=== PATIENT | female | born 1995 | race Caucasian/White ===

== ENCOUNTER 2020-03-23 15:12 | Observation (INO) | payer SELFPAY ==
--- NOTE | ~2020-03-23 | XR_ITS ---
EXAMINATION: XR chest 1V portable 03/23/2020 23:01 INDICATION: Chest pain. EtOH withdrawal. Anxiety. PROCEDURE: AP portable chest COMPARISON: 12/13/2018 FINDINGS: The lungs are clear. The cardiomediastinal silhouette is within normal limits. There are no pleural effusions. There is no pneumothorax suspected. IMPRESSION: 1: NO ACUTE CARDIOPULMONARY DISEASE. Reviewed, dictated and finalized at location A.
[2020-03-23 15:30] VITALS: BP 98/79; PULSE 116; RESP 18; TEMP 37.1; O2SAT 100
[2020-03-23] MEDS: ONDANSETRON HCL ODT 4 MG TABLET PO (17:05)
--- NOTE | 2020-03-23 17:13 | ED.ALCOHOL ---
HPI - Alcohol General Source: patient and other (raven (given permission to stay in room by patient). ) Mode of arrival: ambulatory Limitations: no limitations History of Present Illness HPI narrative: 24 y.o. with alcohol dependence decided to stop drinking. She has decreased her daily alcohol (rum) from a fifth ( 25 ounces) to several shots (2 - 4 ounces) /day. She comes in with the following symptoms for the past 2 days: constant nausea, frequent vomiting and dry heaves resting tremors Intermittent episodes of sweating feeling very anxious having mild feelings of harshness and ability to be frightened photophobia moderate to severe occipital headache Last year when she was in withdrawal she had a seizure which she's concerned will recur. She usually tapers her alcohol to get past her withdrawal symptoms, but came into the E.D. feeling very thirsty and dehydrated, hoping to treat her withdrawal symptoms with i.v. fluids and medication. She last had several shots of rum about 6 hours ago. She smokes marijuana but otherwise denies other substance use. She started abusing alcohol at about 10 years old. She has tried A.A., counseling and assistance from a medical provider, all of which were unsuccessful. Related Data Home Medications Medication Instructions Recorded Confirmed No Home Medications 03/23/20 03/23/20 Allergies Allergy/AdvReac Type Severity Reaction Status Date / Time No Known Allergies Allergy Verified 03/23/20 16:47 Review of Systems Constitutional: Constitutional: Denies fever(s) Eyes: Eyes: Reports no additional eye complaints ENT: Reports sore throat Cardiovascular: Cardiovascular: Reports chest pain (periodic chest pain since withdrawing, sometimes lasting several hours. ) Comments: Whenever she goes through alcohol withdrawal she gets familiar, low grade, twisting discomfort in her left and/ or right lower chest, sometimes associated with similar discomfort in the posterior chest. Sometimes she experiences similar, twisting pain in her lower abdomen. The pain is worse when she's supine, curled up, and improves when sitting up. She only has it when she withdraws. Respiratory: Respiratory: Denies dyspnea Gastrointestinal: Gastrointestinal: Reports no additional gastrointestinal complaints Genitourinary: Comments: urinary urgency Integumentary/Breasts: Skin/Breast: Denies rash Neurologic: Reports numbness (intermittent, recurrent tingling in fingers for a very long time. No change) Psychiatric: Psychiatric: Reports no additional psychiatric complaints Hematologic/Lymphatic: Hematologic/Lymphatic: Reports easy bleeding PMFSH Past Medical History Medical History (Updated 03/24/20 @ 01:56 by Lakhwinder Muro MD) Anxiety Depression PTSD (post-traumatic stress disorder) Social History Social History Smoking packs per day: 0.5 Smoking cigarettes per day: 10.0 Years smoked: 10 Smoking pack-years: 5.00 Smoking status: Current every day smoker Tobacco type: cigarettes Second hand tobacco smoke exposure: Yes Alcohol intake: current Substance use: current Substance use type: marijuana Last use: 03/22/20 Gender identity (if verbalized by the patient): Female Spiritual care concerns: No Exam Const: Orientation/consciousness: patient oriented x3 Other: Rolled up in a ball; resting arm tremors. HENMT: Head: normal to inspection Mouth: Yes dry mucous membranes Eyes: Pupils: Equal, round and reactive pupils present EOM: EOMs intact bilaterally Direct Ophthalmoscopy: photophobia Neck: Neck: no lymphadenopathy Other: supple Chest: Chest palpation & inspection: normal inspection of the chest and no tenderness Resp: Effort & Inspection: normal respiratory effort Auscultation: clear to auscultation bilaterally Cardio: Rate: regular rate and tachycardic Rhythm: regular rhythm Heart sounds: no murmurs GI: GI Palp: Yes Soft to
--- NOTE | 2020-03-23 17:24 | ECG_ITS ---
Measurements Intervals [place] Rate: 89 P: 73 NM: 104 QRS: 55 QRSD: 81 T: 66 QT: 413 QTc: 505 Interpretive Statements SINUS RHYTHM WITH SHORT NM INTERVAL RSR' IN V1 OR V2, PROBABLY NORMAL VARIANT T WAVE ABNORMALITY IN ANTERIOR LEADS- CONSIDER ISCHEMIA BASELINE ARTIFACT- I ABNORMAL ECG Electronically Signed On 03-23-2020 20:02:36 CDT by Durga Naranjo D.O.
[2020-03-23 17:30] VITALS: BP 109/73; PULSE 99; TEMP 36.4
[2020-03-23 17:30] LABS: Hematocrit 41.9 % (35.0-49.0); Hemoglobin 15.1 g/dL (12.0-15.0); Mean Corpuscular Hemoglobin 37.3 pg (27.0-31.0); Mean Corpuscular Volume 103.5 fL (78.0-102.0); Mean Platelet Volume 9.3 fl (9.2-11.8); Platelet Count Result 181 K/mm3 (150-420); Red Blood Count 4.05 M/mm3 (4.20-5.40); Red Cell Distribution Width 12.1 % (11.6-14.4); White Blood Count 5.3 K/mm3 (4.8-10.8)
[2020-03-23 17:48] LABS: Alanine Aminotransferase 130 U/L (14-59); Albumin Level 3.4 g/dL (3.4-5.0); Alkaline Phosphatase 149 U/L (46-116); Anion Gap 22.1 mmol/L (7-16); Aspartate Amino Transferase 221 U/L (15-37); Bilirubin,Total 0.8 mg/dL (0.00-1.00); Blood Urea Nitrogen 3 mg/dL (7-18); Calcium 8.8 mg/dL (8.5-10.1); Carbon Dioxide 22 mmol/L (21-32); Chloride 96 mmol/L (98-108); Estimated CRCL calculation 65 ml/min; Estimated Glomerular Filt Rate > 60; Ethanol 50 mg/dL (0-6); Glucose 115 mg/dL (70-99); Osmolality Calculated 281 mOsm/kg (285-295); Potassium 3.1 mmol/L (3.5-5.1); Sodium 137 mmol/L (136-145); Total Protein 7.8 g/dL (6.4-8.2)
[2020-03-23 17:50] LABS: Troponin I < 0.02 ng/mL (0.00-0.056)
[2020-03-23] MEDS: LACTATED RINGERS 1,000 ML 999 ML IV CONT (17:55)
[2020-03-23] MEDS: ONDANSETRON INJ 4 MG/2 ML VIAL IV PUSH (17:59)
[2020-03-23 19:18] LABS: Amphetamine Screen Urine Negative (Negative); Barbiturate Screen Urine Negative (Negative); Benzodiazepines Screen Urine Negative (Negative); Cannabinoid Screen Urine Positive (Negative); Cocaine Screen Urine Negative (Negative); Methadone Screen Urine Negative (Negative); Opiate Screen Urine Negative (Negative); Phencyclidine Screen Urine Negative (Negative)
--- NOTE | 2020-03-23 20:25 | ECG_ITS ---
Measurements Intervals [place] Rate: 98 P: 48 [place]: 90 QRS: 56 QRSD: 78 T: 70 QT: 361 QTc: 462 Interpretive Statements SINUS RHYTHM WITH SHORT [place] INTERVAL VENTRICULAR PREMATURE COMPLEX RSR' IN V1 OR V2, PROBABLY NORMAL VARIANT BORDERLINE ST-T WAVE ABNORMALITY- DIFFUSE LEADS BASELINE ARTIFACT- I, AVR, AVL, AVF ABNORMAL ECG Electronically Signed On 03-24-2020 7:09:33 CDT by Durga Naranjo D.O.
[2020-03-23] MEDS: MAGNESIUM SULF 4 GM/WATER100ML 4 GM/100 ML BAG IVPB (21:01)
[2020-03-23 21:44] VITALS: BP 110/73; PULSE 78; RESP 18; TEMP 36.4; O2SAT 100
--- NOTE | 2020-03-23 22:51 | PC.NURSE ---
RAFAEL RICKETTS CALLED REPORT TO RAFAEL DALE ON 2ND FLOOR. RN WAS INFORMED OF CURRENT PT. COMPLAINT. PT. VITALS ARE STABLE AT THIS TIME AND SHE JUST RECIEVED DIAZEPAM FOR ANXIETY/WITHDRAWL AND REPORTS FEELING MORE CALM AND LESS SHAKY. WILL CONTINUE TO MONITOR UNTIL SHE IS TRANSPORTED UPSTAIRS.
[2020-03-23 23:01] LABS: Anion Gap 11.4 mmol/L (7-16); Blood Urea Nitrogen 4 mg/dL (7-18); Calcium 8.8 mg/dL (8.5-10.1); Carbon Dioxide 32 mmol/L (21-32); Chloride 95 mmol/L (98-108); Estimated CRCL calculation 71 ml/min; Estimated Glomerular Filt Rate > 60; Glucose 118 mg/dL (70-99); Osmolality Calculated 277 mOsm/kg (285-295); Potassium 3.4 mmol/L (3.5-5.1); Sodium 135 mmol/L (136-145)
[2020-03-23 23:03] LABS: Troponin I < 0.02 ng/mL (0.00-0.056)
[2020-03-23] MEDS: KCL 20MEQ/0.9% SOD CHL 1,000 ML 150 ML IV CONT (23:37)
[2020-03-24] VITALS (11 sets, daily range): BP systolic 112–129; BP diastolic 60–69; PULSE 64–101; RESP 14–20; TEMP 36.3–36.6; O2SAT 97–98
--- NOTE | 2020-03-24 01:17 | PC.NURSE ---
2310 Pt to 206 for services of the hospitalist. Pt is alert and oriented x4 and states she she is trying to stop drinking for which reason she was admitted. Pt has occasional episodes of dry heaves and she doesnt voice any c/o pain. IV fluid infusing as ordered, side rails up x2 and call fair within reach.
--- NOTE | 2020-03-24 01:22 | PC.NURSE ---
0030 Pt asleep and IV fluid continues to infuse as ordered.
--- NOTE | 2020-03-24 01:22 | PC.NURSE ---
Pt asleep and no signs of nausea or discomfort noted. IV fluid continues to infuse as ordered.
--- NOTE | 2020-03-24 02:24 | PC.NURSE ---
Pt resting quietly in bed and doesnt voice any c/o nausea. IV fluid continues to infuse as ordered.
--- NOTE | 2020-03-24 03:32 | PC.NURSE ---
Pt states she is having a hard time sleeping but states it is because this is the first time she has been away from her fiance. Pt doesnt voice any c/o nausea and IV fluid continues to infuse as ordered.
--- NOTE | 2020-03-24 04:20 | PC.NURSE ---
Pt asleep and no signs of nausea or withdrawl noted. IV fluid continues to infuse as ordered.
--- NOTE | 2020-03-24 05:00 | ECG_ITS ---
Measurements Intervals [place] Rate: 62 P: 63 VA: 129 QRS: 17 QRSD: 80 T: -2 QT: 524 QTc: 533 Interpretive Statements SINUS RHYTHM BORDERLINE ST-T WAVE ABNORMALITY- ANT/INF LEADS PROLONGED QT INTERVAL BASELINE ARTIFACT- I, III, AVL, AVF ABNORMAL ECG Electronically Signed On 03-24-2020 7:08:08 CDT by Durga Naranjo D.O.
--- NOTE | 2020-03-24 05:36 | PC.NURSE ---
Contacted Dr. Muro with pt's critical EKG results. No new orders at this time.
--- NOTE | 2020-03-24 06:32 | PC.NURSE ---
Dr uMro contacted regarding IV fluid order. Orders clarified.
[2020-03-24 06:39] LABS: Blood Urea Nitrogen 3 mg/dL (7-18); Calcium 7.9 mg/dL (8.5-10.1); Carbon Dioxide 31 mmol/L (21-32); Estimated CRCL calculation 76 ml/min; Estimated Glomerular Filt Rate > 60; Glucose 76 mg/dL (70-99); Magnesium 2.4 mg/dL (1.8-2.4)
--- NOTE | 2020-03-24 06:41 | PC.NURSE ---
Pt up to the bathroom per self to void. Pt returned to bed and denied c/o nausea. IV fluid discontinued at this time.
--- NOTE | 2020-03-24 07:51 | PC.NURSE ---
Patient reports just being exhausted and only getting sleep here at intervals related to stimulation of hospital. No other complaints voiced.
[2020-03-24 08:17] LABS: Troponin I < 0.02 ng/mL (0.00-0.056)
[2020-03-24 09:22] LABS: Basophils Absolute Auto 0.01 K/mm3 (0.00-0.10); Basophils Percent Auto 0.2 % (0.0-1.0); Eosinophils Absolute Auto 0.06 K/mm3 (0.02-0.50); Hematocrit 38.5 % (35.0-49.0); Hemoglobin 13.2 g/dL (12.0-15.0); Immature Granulocyte Absolute 0.01 K/mm3 (0.00-0.00); Immature Granulocyte Percent A 0.2 % (0.0-0.0); Lymphocytes Absolute Auto 1.71 K/mm3 (1.10-4.50); Mean Corpuscular HGB Conc 34.3 g/dL (32.0-36.0); Mean Corpuscular Hemoglobin 36.7 pg (27.0-31.0); Mean Corpuscular Volume 106.9 fL (78.0-102.0); Monocytes Absolute Auto 0.47 K/mm3 (0.10-0.90); Neutrophils Absolute Auto 3.6 K/mm3 (1.7-7.2); Neutrophils Percent Auto 61.6 % (50.0-70.0); Platelet Count Result 135 K/mm3 (150-420); Red Cell Distribution Width 12.4 % (11.6-14.4); White Blood Count 5.9 K/mm3 (4.8-10.8)
[2020-03-24 09:38] LABS: Anion Gap 10.8 mmol/L (7-16); Chloride 100 mmol/L (98-108); Osmolality Calculated 281 mOsm/kg (285-295); Potassium 3.8 mmol/L (3.5-5.1); Sodium 138 mmol/L (136-145)
--- NOTE | 2020-03-24 10:16 | PC.NURSE ---
1015 Patient sleeping on her side. Left undisturbed at present. NSR on tele.
--- NOTE | 2020-03-24 10:30 | ECG_ITS ---
Measurements Intervals [place] Rate: 62 P: 77 MS: 125 QRS: 50 QRSD: 77 T: 37 QT: 507 QTc: 519 Interpretive Statements SINUS RHYTHM BORDERLINE ST ABNORMALITY- ANT/INF LEADS PROLONGED QT INTERVAL ABNORMAL ECG Electronically Signed On 03-24-2020 11:01:13 CDT by Durga Naranjo D.O.
[2020-03-24 11:05] LABS: Creatine Kinase 49 U/L (26-192)
[2020-03-24 11:08] LABS: Creatine Kinase MB < 0.50 ng/mL (0.00-5.00); Troponin I < 0.02 ng/mL (0.00-0.056)
[2020-03-24] MEDS: chlordiazePOXIDE 25 MG CAPSULE PO (11:22)
--- NOTE | 2020-03-24 11:26 | PC.NURSE ---
Step mom here and conversing with Chloé PIG MACHINE SUPERVISOR and patient. Information given on [facility] to patient.
--- NOTE | 2020-03-24 11:27 | PC.NURSE ---
Mild withdrawl from ETOH noted. Librium ordered per OCT. Medication started. SEE MAR.
--- NOTE | 2020-03-24 13:03 | PC.NURSE ---
Notified [facility] about patient to follow up after discharge. [facility] casemanager will be calling patient cell phone to set up this appointment.
--- NOTE | 2020-03-24 13:50 | PC.NURSE ---
Sleeping. SR on Tele. Step mom left to go get her food. Left undisturbed at present.
--- NOTE | 2020-03-24 14:40 | PC.NURSE ---
1434 Patient too heart monitor off r/t not want to wear it no more. Wants to go home. Ate [place] food for lunch -kept it down. Demanding to go home. Chloé TEJEDA notified.
--- NOTE | 2020-03-24 15:02 | PM.DS ---
DS: Discharge Diagnosis Discharge Diagnosis (1) Alcohol withdrawal: Qualifiers: Complication of substance-induced condition: uncomplicated Qualified Code(s): F10.230 - Alcohol dependence with withdrawal, uncomplicated Code(s): F10.239 - Alcohol dependence with withdrawal, unspecified Status: Acute Assessment and Plan: admitted with alcohol withdrawal. Stated that she has had this experience before. drinking alcohol since she was 10 years old. drinks approximately a full bottle of rum every day. She stated that on Monday she started to wean herself from alcohol. And that on Monday she only had about 4 shots of rum. And ended up in the ER later that day. decreased her daily alcohol (rum) from a fifth ( 25 ounces) to several shots (2 - 4 ounces) /day. admitted with:constant nausea, frequent vomiting and dry heaves, resting tremors, Intermittent episodes of sweating, feeling very anxious, having mild feelings of harshness and ability to be frightened, photophobia, moderate to severe occipital headache. history of alcohol withdrawal seizure last year. electrolytes replenished IV hydration completed Follow-up with [facility] for a primary care provider that she can afford as well as counseling. [facility] case fitter said that they would be following up with the patient. intervals Changes noted to EKGs in her QTC currently denying chest pain, chest pressure, shortness of breath, dyspnea, and is ambulating throughout her hospital room without any lightheadedness, dizziness, or difficulty. added Librium. She received a 25 mg dose, with no concerning changes to her continuous cardiac telemetry monitoring rhythms. alcohol withdrawal symptoms significantly improved with her Librium dosing. discharged today with a short course of Librium, instructed not to drink while taking Librium , spoken with her fiance who lives with her as well as her stepmother, and requested that the patient not be alone for the next 24 hours after discharge , just for further monitoring and assurance of withdrawal symptom control.. And her boyfriend /fiance who lives with her as well as her stepmother have both assured us (myself and nurse Miladys) that the pateint will not be left alone for the next 24 hours. discharge to follow-up with the primary care provider as well as a counselor, instructed her to attend AA meetings weekly, to take alqv-rke-pgtejfa magnesium, tuob-kaf-lgjxxag multivitamin, follow-up with a bridge welder regarding her EKG changes. (2) Hypomagnesemia: Code(s): E83.42 - Hypomagnesemia Status: Acute Assessment and Plan: resolved magnesium was 1.0 admission magnesium was 2.4 today instructed patient to take oral tinl-tlf-tawhwuj magnesium as she is on limited income (3) Abnormal ECG: Code(s): R94.31 - Abnormal electrocardiogram [ECG] [EKG] Status: Acute Assessment and Plan: prolonged QTC intervals on her EKGs found intermittently continuous cardiac telemetry monitoring patient continued to deny any shortness of breath or dyspnea or chest pain or chest pressure or shoulder or jaw or arm numbness or tingling may be related to medications and her alcohol withdrawal and or alcohol use, may be related to liver disease Most recent EKG, prior to discharge. QT: 507 QTc: 519 I have instructed her to attend AA meetings weekly, to take wurw-eiz-smczyfs magnesium, mnqm-lwx-cgisvrr multivitamin, and that she should follow-up with a bridge welder regarding her EKG changes. (4) Anxiety: Code(s): F41.9 - Anxiety disorder, unspecified Status: Acute Assessment and Plan: patient is anxious at baseline patient stated that she treats her anxiety with alcohol and admitted that she needs to stop self medicating undergoing alcohol withdrawal only makes her anxiety worse treated with Valium at her
--- NOTE | 2020-03-24 15:02 | PM.IMHP ---
H&P: HPI History of Present Illness Chief complaint: alcohol withdrawal Narrative: Dominga Melendez is a 24 year old female admitted with alcohol withdrawal. Stated that she has had this experience before. As time she tried to wean herself from alcohol. Dominga stated that she has been drinking alcohol since she was 10 years old. She does not communicate with her mother. She lives with her boyfriend who is not an alcoholic but he may drink on a rare occasion. She does communicate and is friendly with her stepmother. Her stepmother stated that Dominga's boyfriend, while he does not drink, will bring and provides here with alcohol. Dominga stated that she drinks approximately a full bottle of rum every day. She stated that on Monday she started to wean herself from alcohol. And that on Monday she only had about 4 shots of rum. And ended up in the ER later that day.She has decreased her daily alcohol (rum) from a fifth ( 25 ounces) to several shots (2 - 4 ounces) /day. She comes in with the following symptoms for the past 2 days:constant nausea, frequent vomiting and dry heaves, resting tremors, Intermittent episodes of sweating, feeling very anxious, having mild feelings of harshness and ability to be frightened, photophobia, moderate to severe occipital headache. Last year when she was in withdrawal she had a seizure which she's concerned will recur. She usually tapers her alcohol to get past her withdrawal symptoms, but came into the E.D. feeling very thirsty and dehydrated, hoping to treat her withdrawal symptoms with i.v. fluids and medication. She last had several shots of rum about 6 hours ago. She smokes marijuana but otherwise denies other substance use. She has tried A.A., counseling and assistance from a medical provider, all of which were unsuccessful. Dominga has not had a primary care provider anyone to follow-up with. She does not have any insurance and she has not had the money to pay for any physician or Dr. appointments. We have called [facility] and they will be following up with this patient. We have also provided Dominga with all of the [facility] information and contact numbers. [facility] case management specialist said that they would be following up with the patient. They are able to provide primary care appointments in the clinic, able to provide alcohol withdrawal treatment including medications and prescriptions as well as counselors. At 5 am, this morning, her EKG showed: QT: 524 QTc: 533 Today, She is currently denying chest pain, chest pressure, shortness of breath, dyspnea, and is ambulating throughout her hospital room without any lightheadedness, dizziness, or difficulty. Today she is not having any chest pain, and her heart rate is well controlled, and her blood pressures are stable. Her most prominent sign of alcohol withdrawal this morning was tremors, agitation, fidgeting, anxiety. These did improve after her Librium dose. At admission she had evidence of acute dehydration with a hemoglobin of 15.1, a low potassium of 3.1 and magnesium of 1.0. All of her liver enzymes are elevated at admission.:Her AST is elevated at 221 and her ALT is 130, her alkaline phosphatase was 149. Her urine tox screen was negative except for cannabinoids and alcohol. Her alcohol level was 50 at admission. Chest x-ray was without any concerns.Most recent EKG, prior to discharge. QT: 507 QTc: 519 Dominga was hydrated overnight, replenished with IV magnesium and potassium, and her electrolytes are now stable. she received a dose of Valium , Zofran, promethazine, last night and then was noted to have QTC prolongation on her EKGs. I have ordered the patient to start on Librium. She received a 25 mg dose, with no concerning changes to her continuous cardiac telemetry monitoring rhythms. Her alcohol withdrawal symptoms signific
--- NOTE | 2020-03-25 00:38 | PM.EVENT ---
Event Note Event Note Event Note: For 03/24/2020: I reviewed the chart and examined the patient. I discussed the patient's care with A Sundeep HUSTON and agree with her assessment and plan.
== END 2020-03-24 15:10 | disposition home or self-care (01) ==
LOC: CHSED 20:44 → CHS2ND 23:10
PROVIDERS: Nurse Practitioner; Admitting Provider Family Medicine; Emergency Provider Family Medicine; Visit Provider Family Medicine
DX: F10.239 Alcohol dependence with withdrawal, unspecified (principal); E86.0 Dehydration; E83.42 Hypomagnesemia; R94.31 Abnormal electrocardiogram [ECG] [EKG]; F41.9 Anxiety disorder, unspecified; F32.9 Major depressive disorder, single episode, unspecified; F43.10 Post-traumatic stress disorder, unspecified; F17.210 Nicotine dependence, cigarettes, uncomplicated; F12.90 Cannabis use, unspecified, uncomplicated
CPT/HCPCS: 36415; 71045; 80048; 80053; 80307; 82550; 82553; 83735; 84484; 85025; 85027; 87086; 93005; 96361; 96365; 96366; 96367; 96372; 96375; 99284; 99285; A9270; G0378; G0379; J2405; J3360; J3475; J3480; J7120

== ENCOUNTER 2022-02-20 15:46 | Emergency (ER) | payer SELFPAY ==
--- NOTE | 2022-02-20 15:50 | ED.WOUNDLAC ---
HPI - Wound/Laceration General Chief Complaint: Wound/Laceration Stated Complaint: cut down to bone, R pinky Time Seen by Provider: 02/20/22 15:52 Source: patient and RN notes reviewed Mode of arrival: ambulatory Limitations: no limitations History of Present Illness Onset (ago): minute(s) (15) Extremity Location: Right: hand ( dorsal DIP) Place: home Patient tetanus UTD: Yes Context: accidental Associated symptoms: none Treatments prior to arrival: bandage Related Data Allergies Allergy/AdvReac Type Severity Reaction Status Date / Time No Known Allergies Allergy Verified 02/20/22 16:19 Review of Systems Review of Systems: All systems reviewed & are unremarkable except as noted in HPI and below PMFSH Past Medical History Medical History (Updated 02/20/22 @ 16:34 by Ministerio Crow MD) Anxiety Depression PTSD (post-traumatic stress disorder) Family History Family History Mother Lupus (systemic lupus erythematosus) Grandparent Diabetes mellitus Social History Social History Smoking packs per day: 0.5 Smoking cigarettes per day: 10.0 Years smoked: 10 Smoking pack-years: 5.00 Smoking status: Current every day smoker Tobacco type: cigarettes Second hand tobacco smoke exposure: Yes Alcohol intake: current Substance use: current Substance use type: marijuana Last use: 03/22/20 Gender identity (if verbalized by the patient): Female Spiritual care concerns: No Exam Const: General: healthy appearing, no acute distress and alert Nutritional Appearance: well nourished Orientation/consciousness: patient oriented x3 HENMT: Head: normal to inspection Ears: external ears normal Eyes: Conjunctivae: conjunctivae normal Pupils: Equal, round and reactive pupils present EOM: EOMs intact bilaterally Neck: Neck: normal visual inspection Resp: Effort & Inspection: normal respiratory effort Auscultation: clear to auscultation bilaterally Cardio: Rate: regular rate Rhythm: regular rhythm GI: GI Palp: Yes Soft to palpation and No Tenderness to palpation present (GI) Auscultation: normal bowel sounds Back/Spine/Pelvis: Cervical Spine: cervical ROM normal Thoracic/Lumbar Spine: thoraco-lumbar ROM normal Skin: General skin exam: normal color Rashes: no rashes Wounds: wounds noted ( through the extensor tended into the DIP joint) incision right dorsal 5th finger size (2cm) and margins well approximated Neuro: General: patient oriented x3, moves all extremities, no focal motor deficits and CN's II-XI intact bilaterally Speech: normal speech Gait exam (Neuro): Normal gait present Extrem: General: normal to inspection and no clubbing, cyanosis or edema Psych: Mental Status: mental status grossly normal Affect: normal affect Attitude: cooperative Course Course Emergency Course: I offered the patient transfer evaluation to [place] for hand surgeon or plastic surgeon since her laceration is through the extensor tendon and into the D IP joint. She declined. Procedures Laceration Laceration 1: Date: 02/20/22 Site: upper extremity ( Dorsal D IP joint horizontally) Side (If applicable): right Size (cm): 2 Description: linear Depth: involves tendon Local Anesthetic: lidocaine 1% Pre-repair: wound explored and irrigated ====== Skin Level ====== Skin layer closed with: nylon Size (cm): 4-0 Number of sutures: 5 Technique: running ====== Subcutaneous Layer ====== ====== Muscle Layer ====== ====== Tendon Layer ====== Tendon layer closed with: vicryl Size: 4-0 Number of sutures: 2 Technique: simple interrupted Discharge Plan Discharge Clinical Impression: Laceration Patient Disposition: Home, Self-Care Condition: Improved Instructions: Antib
[2022-02-20 15:56] VITALS: BP 126/86; PULSE 96; RESP 16; TEMP 36.6; O2SAT 98
[2022-02-20] MEDS: LIDOCAINE HCL 1% LOCAL INJ 10 ML VIAL INFILTRATE (16:09)
--- NOTE | 2022-02-20 16:10 | PC.NURSE ---
erp at bedside cleaning wound, patient offered to be transferred to [facility] for plastic surgeon but declined. stated she just wanted it sutured up so she could go back home.
[2022-02-20] MEDS: NEOMYCIN/POLYMYXIN/BACITRACIN OINTMENT PACKET 1 PACKET TOPICAL (16:15)
[2022-02-20 16:41] VITALS: BP 127/88; PULSE 97; RESP 16; TEMP 36.8; O2SAT 98
== END 2022-02-20 16:49 | disposition home or self-care (01) ==
PROVIDERS: Emergency Provider Emergency Medicine
DX: S61.216A Laceration without foreign body of right little finger without damage to nail, initial encounter (principal); W45.8XXA Other foreign body or object entering through skin, initial encounter
CPT/HCPCS: 12001; 99283

== ENCOUNTER 2022-03-19 17:58 | Emergency (ER) | payer MEDICAID, SELFPAY ==
[2022-03-19 18:35] VITALS: BP 120/81; PULSE 131; RESP 20; TEMP 37; O2SAT 98
[2022-03-19] MEDS: ACETAMINOPHEN 325 MG TABLET 650 MG PO (18:55)
[2022-03-19] MEDS: IBUPROFEN 600 MG TABLET PO (18:56)
[2022-03-19] MEDS: NEOMYCIN/POLYMYXIN/BACITRACIN OINTMENT PACKET 2 PACKET (18:57)
--- NOTE | 2022-03-19 18:59 | ED.GENADULT ---
HPI - General Adult General Chief complaint: Wound/Laceration Stated complaint: R pinky infected History of Present Illness HPI narrative: The patient is a 26-year-old woman who sustained a laceration to the right little finger DIP joint on 02/20/2022, which involved a laceration of the extensor tendon. The laceration did extend into the joint. This was repaired here in the emergency room on that day. She was placed on Augmentin but could not afford the prescription. She was advised to follow-up with a hand specialist but has not been able to. She has had redness for the last several days, but worsening over the last 2 days, now with purulent drainage from the laceration. The sutures have been removed in the interim. There is swelling tenderness and purulent drainage from the site. She has loss of sensation at the lateral aspect of the finger tip which is present since the event. She is currently not on antibiotics and has not taken any antibiotics for this. She does have a finger splint. Her tetanus is up-to-date. No other complaints. Related Data Allergies Allergy/AdvReac Type Severity Reaction Status Date / Time No Known Allergies Allergy Verified 02/20/22 16:19 Review of Systems Review of Systems: All systems reviewed & are unremarkable except as noted in HPI and below Constitutional: Constitutional: Reports no additional constitutional complaints, Denies anorexia, Denies body ache(s), Denies chills, Denies excessive sweating, Denies fatigue, Denies fever(s), Denies frequent falls, Denies headache(s), Denies malaise and Denies poor appetite Eyes: Eyes: Reports no additional eye complaints, Denies blurry vision, Denies change in vision, Denies irritation, Denies itchy eyes and Denies photophobia ENT: Reports system reviewed and no additional complaints, except as documented, Reports Normal hearing present, Denies change in voice, Denies dysphagia, Denies vertigo, Denies dizziness, Denies ear discharge, Denies headache(s), Denies hearing loss, Denies hoarseness, Denies nasal congestion, Denies neck pain, Denies sinus pressure, Denies sore throat and Denies throat swelling Cardiovascular: Cardiovascular: Reports no additional cardiovascular complaints, Denies chest pain, Denies syncope, Denies rapid heart rate, Denies irregular heart rhythm, Denies leg edema, Denies dyspnea and Denies slow heart rate Respiratory: Respiratory: Reports no additional respiratory complaints, Denies cough, Denies dyspnea, Denies stridor and Denies wheezing Gastrointestinal: Gastrointestinal: Reports no additional gastrointestinal complaints, Denies abdominal pain, Denies melena, Denies hematochezia, Denies dysphagia, Denies diarrhea, Denies nausea and Denies vomiting Genitourinary: Genitourinary: Denies hematuria, Denies urinary frequency, Denies dysuria, Denies flank pain and Denies urinary urgency Musculoskeletal: Musculoskeletal: Reports no additional musculoskeletal complaints, Denies abnormal gait, Denies back pain, Denies myalgias, Reports arthralgias (of right little finger distal phalanx), Reports joint swelling (of right little finger distal phalanx), Reports limited range of motion (of right little finger DIP joint), Denies muscle cramps, Denies muscle weakness, Denies neck pain and Denies numbness Integumentary/Breasts: Skin/Breast: Reports system reviewed and no additional complaints, except as docu, Denies breast pain, Reports change in pigmentation, Denies pruritus, Reports erythema and Reports wounds Neurologic: Reports system reviewed and no additional complaints, except as documented, Reports Normal hearing present, Denies Abnormal speech present, Denies abnormal gait, Denies confusion, Denies vertigo, Denies dizziness, Denies syncope, Denies frequent falls, Denies headache(s), Denies focal weakness, Reports numbness and Denies paresthesias Psychiatric: Psychiatric: Reports no additional psychiatric complaints and Denies confusion Endocrine:
[2022-03-19] MEDS: ceFAZolin SODIUM 1 GM VIAL 2 GM IM (19:19)
[2022-03-19] MEDS: WATER, STERILE FOR INJECTION 10 ML VIAL XX (19:22)
[2022-03-19 19:23] VITALS: PULSE 106; RESP 20; O2SAT 97
[2022-03-19 20:01] VITALS: BP 106/78; PULSE 107; RESP 18; TEMP 36.6; O2SAT 98
== END 2022-03-19 20:19 | disposition home or self-care (01) ==
PROVIDERS: Emergency Provider Emergency Medicine
DX: L03.011 Cellulitis of right finger (principal)
CPT/HCPCS: 87070; 87147; 87186; 87205; 96372; 99283; A9270; J0690

== ENCOUNTER 2022-04-11 13:50 | Outpatient (CLI) | payer MEDICAID, SELFPAY | END 2022-04-11 13:51 | disposition home or self-care (01) | LOC: CHSLAB 13:52 | PROVIDERS: PCP Nurse Practitioner Family; Visit Provider Nurse Practitioner Family | DX: N91.2 Amenorrhea, unspecified (principal) | CPT/HCPCS: 36415; 84702 ==

== ENCOUNTER 2022-04-29 09:53 | Outpatient (CLI) | payer OTHER, SELFPAY ==
--- NOTE | ~2022-04-29 | US_ITS ---
EXAMINATION: US OB <= 14 weeks fetus DATE: 04/29/2022 10:42 INDICATION: with inconclusive viability during first trimester TECHNIQUE: Real-time pelvic ultrasound utilizing both a transvaginal and transabdominal probe was pe rformed. The interpreting radiologist was not present for the study. COMPARISON: None. FINDINGS: The uterus measures 11.3 x 9.8 x 6.5 cm. There is an intrauterine gestational sac with single living fetus. The crown rump length measures 6.4 cm, which correlates with an estimated gestational age of 13 weeks and 1 days. heart motion is identified measuring 176 beats per minute (bpm) by M-mode Doppler. The placenta is developing posteriorly. The cervix is not clearly visualized. The right ovary measures 3.5 x 2.0 x 3.5 cm. The left ovary is not visualized. There is no free fluid in the pelvis. IMPRESSION: 1. Single living fetus with heart of 176 bpm. 2. Gestational age by ultrasound of 13 weeks 1 day(s) +/- 1 week and 1 day(s) with ultrasound estima chava date of delivery ([facility]) of 11/03/2022. Reviewed, dictated and finalized at location A. IMPRESSION: 1. Single living fetus with heart of 176 bpm. 2. Gestational age by ultrasound of 13 weeks 1 day(s) +/- 1 week and 1 day(s) with ultrasound estimated date of delivery ([facility]) of 11/03/2022.
== END 2022-04-29 09:54 | disposition home or self-care (01) ==
LOC: CHSIMG 09:54
PROVIDERS: PCP Nurse Practitioner Family; Visit Provider Student in an Organized Health Care Education/Training Program
DX: O36.80X0 Pregnancy with inconclusive fetal viability, not applicable or unspecified (principal)
CPT/HCPCS: 76801

== ENCOUNTER 2022-06-15 14:43 | Outpatient (CLI) | payer OTHER, SELFPAY ==
--- NOTE | ~2022-06-15 | US_ITS ---
EXAMINATION: US OB /maternal detail DATE: 06/15/2022 16:11 INDICATION: Second trimester anatomic survey TECHNIQUE: Real-time ultrasound of the pelvis was performed. COMPARISON: 04/29/2022 FINDINGS: There is a single living fetus in vertex presentation. The placenta is posterior and 4.4 cm from the internal cervical os. The cervical length is 5.1 cm. heart rate is 161 beats per minute (bpm). cardiac activity and movement are noted. The amniotic fluid index is subjectively normal . The following anatomy was identified as normal: 4 chamber heart 3 vessel cord cord insertion kidneys urinary bladder stomach spine diaphragm ventricles cisterna magna cerebellum The following biometric data were obtained: Biparietal diameter (BPD): 4.2 cm; head circumference (HC): 16.0 cm; abdominal circumference (AC): 3. 9 cm; femur length (FL): 2.9 cm. These measurements are concordant. Estimated weight is 271 g +/- 40 g, which correlates with the 19th percentile when 11/05/2022 is used as estimated date of delivery. As single measurements, these parameters are each equal to the following estimated gestational ages w ith ranges of +/- 2 standard deviations: BPD: 18 weeks 5 days +/- 1 weeks 5 days. HC: 18 weeks 6 days +/- 1 weeks 3 days. AC: 19 weeks 2 days +/- 2 weeks 0 days. FL: 18 weeks 6 days +/- 1 weeks 6 days. estimated gestational age based solely on measurements from this exam is 19 weeks 0 days +/- 1 weeks 2 days. IMPRESSION: 1. Single living fetus in vertex presentation. 2. Estimated weight is 271 g +/- 40 g, which correlates with the 19th percentile when 11/05/2022 is used as estimated date of delivery. Reviewed, dictated and finalized at location B. IMPRESSION: 1. Single living fetus in vertex presentation. 2. Estimated weight is 271 g +/- 40 g, which correlates with the 19th per centile when 11/05/2022 is used as estimated date of delivery.
== END 2022-06-15 14:44 | disposition home or self-care (01) ==
LOC: CHSIMG 14:44
PROVIDERS: PCP Nurse Practitioner Family; Visit Provider Obstetrics & Gynecology
DX: Z34.82 Encounter for supervision of other normal pregnancy, second trimester (principal)
CPT/HCPCS: 76805

== ENCOUNTER 2024-12-11 08:38 | Outpatient (CLI) | payer OTHER, SELFPAY ==
--- NOTE | ~2024-12-11 | US_ITS ---
EXAM EXAMINATION: US OB follow up DATE: 12/11/2024 13:41 CDT INDICATION: Growth/placental check COMPARISON: 09/27/2024 and 08/27/2024 TECHNIQUE: Real-time transabdominal obstetric ultrasound. FINDINGS: 6 para 2 There is a single intrauterine gestation in vertex presentation. The placenta is anterior. The tip of the placenta measures 3.05 cm from the cervix. The cervix measures 2.41 cm in length cardiac activity and movement is noted with a heart rate of 161 beats per minute. The following biometric data were obtained: Biparietal diameter (BPD): 4.02 cm; head circumference (HC): 15.3 cm; abdominal circumference (AC): 13.4 cm; femur length (FL): 2.7 cm. These measurements are concordant. Estimated weight is 241.5g +/- 36 g, which correlates with the 57th percentile when 05/11/2025 i s used as estimated date of delivery. As single measurements, these parameters are each equal to the following estimated gestational ages: BPD: 18 weeks 1 day. HC: 18 weeks 2 days. AC: 18 weeks 6 days. FL: 18 weeks 1 day. estimated gestational age based solely on measurements from this exam is 18 weeks 3 days +/- 1 week 2 days. IMPRESSION: Single intrauterine gestation in vertex presentation with cardiac activity identified. Estimated weight is within the 57th percentile when utilizing 05/11/2025 as the estimated date o f delivery. Anterior placenta tip is 3.05 cm from the cervix, as detailed above Reviewed, dictated and finalized at location A. IMPRESSION: Single intrauterine gestation in vertex presentation with cardiac activit y identified. Estimated weight is within the 57th percentile when utilizing 05/11/2025 a s the estimated date of delivery. Anterior placenta tip is 3.05 cm from the cervix, as detailed above
--- OUTSIDE RECORDS SUMMARY | 2024-12-11 09:00 | XMS_ITS | Data Portability ---
Author Organization [facility] Karli [facility] Address [address] [place] [address] Care Team Providers Care Senior Brand Manager Name Role Phone ALYSSA DOUGLAS Food And Beverage Manager Assessment No assessment recorded. Plan of Treatment Reminders Order Date Submit Date Provider Last Modified By Organization Details Last Modified Time Details Appointments OB 15 2024 10:15A M Alyssa Douglas MD Not available Not available Not available Lab urinal ysis, dipsti ck 2024 025 [email or web address] In-Office Order, Internal Use Only DO Not Attach Compendium DO Not Attach Compendium, Do Not Delete/merge, [id number] 11/11/2024 12:07:10 aneupl oidy risk and X & Y analys is, chromo some specif ic circul ating cell free (CCF) DNA, matern al serum 2024 025 ALTON [facility], [address], [place], [address], 11/15/2024 07:16:07 pregna ncy test, urine 2024 025 [email or web address] In-Office Order, Internal Use Only DO Not Attach Compendium DO Not Attach Compendium, Do Not Delete/merge, [id number] 10/10/2024 13:45:00 urinal ysis, dipsti ck 2024 025 [email or web address] In-Office Order, Internal Use Only DO Not Attach Compendium DO Not Attach Compendium, Do Not Delete/merge, [id number] 10/10/2024 13:45:00 hemogl obin (Hb) electr ophore sis, blood 2024 025 YU [facility], [address] [facility], [facility] [address], [place], [address], 10/23/2024 07:17:47 HIV 1 + 2, meanin gful use set 2024 025 [email or web address] [facility], [address] [facility], [facility], [place], [address], 10/24/2024 08:36:06 varice lla zoster virus IgG Ab, QL, IA, serum 2024 025 [facility], [address] [facility], [facility], [place], [address], 10/23/2024 07:17:57 urinal ysis comple te, reflex cultur e 2024 025 Y[facility], [address] [facility], [facility], [place], [address], 10/23/2024 07:17:51 drug screen , urine 2024 025 Y[facility], [address] [facility], [facility], [place], [address], 10/23/2024 07:17:55 CFTR gene mutati ons found, blood or tissue 2024 025 [email or web address] [facility], [address] [facility], [facility], [place], [address], 10/24/2024 08:36:06 Hepati tis C IgG Ab, qual, serum 2024 025 [email or web address] [facility], [address] [facility], [address], [place], [address], 10/24/2024 08:36:06 prenat al panel 2024 025 [facility], [address] [facility], [address], [place], [address], 10/23/2024 07:17:49 spinal muscul ar atroph y (sma) mutati ons, blood/ tissue 2024 025 ALTON [facility], [address] [facility], [facility], [place], [address], 10/23/2024 07:17:53 chlamy china tracho matis + neisse hardy gonorr hoeae + tricho monas vagina lis rRNA panel, MARTY+pr obe 2024 025 [facility], [address], [place], [address], 10/12/2024 07:13:40 vagina l pathog ens panel, MARTY+pr obe, vagina l fluid 2023 024 [facility], [address], [place], [address], 01/29/2024 11:11:58 mycopl asma genita lium DNA, qualit ative, PCR 2023 024 [facility], [address], [place], [address], 01/29/2024 11:11:59 cytolo gy report , thin prep, smear or scrapi ng, cervic al or vagina l 2023 024 [facility], [address], [place], [address], 01/30/2024 16:12:14 urinal ysis, dipsti ck 2022 023 [email or web address] In-Office Order, Internal Use Only DO Not Attach Compendium DO Not Attach Compendium, Do Not Delete/merge, [id number] 11/01/2022 15:12:38 Referral None record ed. Procedures None record ed. Surgeries None record ed. Imaging US, obstet abby, 2nd trimes ter 02/13/ 2025 02/13/2 025 ALTON Prudencio [facility] Scheduling, [address] [facility] , [place], [address], 11/20/2024 13:38:18 Medication Orders drospi renone 3 mg-eth inyl estrad iol 0.02 mg tablet 2023 025 [facility] [address], [place], [address], 10/10/2024 12:09:59 Patient TargetsNo targets recorded. Patient Instructions Encounter Date Encounter Id Patient Instructions Last Modified By Organization Details Last Modified Time 11/01/2022 [id number] Quitting Tobacco : Care Instructions [email or web address] Not available 11/01/2022 15:12:38 epilepsy: care instructions Not available 11/01/2022 15:12:38 anxiety disorder : care instructions Not available 11/01/2022 15:12:38 learning about anxiety disorders Not available 11/01/2022 15:12:38 11/30/2022 [id number] edinburgh depression scale* Not available 12/05/2022 22:29:59 01/25/2024 [id number] learning about healthy weight Not available 02/03/2024 22:13:51 10/10/2024 [id number] edinburgh depression scale* Not available 10/10/2024 13:48:22 learning about Not available 10/10/2024 13:45:00 learning about visits Not available 10/10/2024 13:45:00 learning about when to call your doctor during (up to 20 weeks) Not available 10/10/2024 13:45:00 After Age 35: Care Instructions Not available 10/10/2024 13:45:00 weeks 10 to 14 o f your : care instructions Not available 10/10/2024 13:45:00 weeks 6 to 10 of your : care instructions [email or web address] Not available 10/10/2024 13:45:00 Reason for Referral None Reported. Results Created Date Observation Date Name Description Value Unit Range Abnormal Flag Note LastModifiedBy Organization Detail LastModifiedTime 10/11/1910/12/2022 CT, NG, TRICH VAG BY MARTY chlamydia by MARTY Negati ve negati ve Not Available [facility] ([facility]) [address], [place], [address], 10/13/2022 16:13:47 10/11/19 23 10/12/2022 CT, NG, TRICH VAG BY MARTY gonococcus by MARTY Negati ve negati ve Not Available [facility] ([facility]) [address] [place], [address], 10/13/2022 16:13:47 10/11/19 23 10/12/2022 CT, NG, TRICH VAG BY MARTY trich vag by MARTY Negati ve negati ve Not Available [facility] ([facility]) [address] [place], [address], 10/13/2022 16:13:47 10/11/19 23 10/13/2022 STREP GP B MARTY strep gp B MARTY Positi ve negati ve abnormal Cente rs for Disea se Contr ol and Preve ntion (CDC) and Ameri can Congr ess of Obste trici ans and Gynec ologi sts (ACOG ) guide lines for preve ntion of perin atal group B strep tococ nabor (GBS) disea se speci fy co-co llect ion of a vagin al and recta l swab speci men to maxim ize sensi tivit y of GBS detec tion. Per the CDC and ACOG, swabb ing both the lower vagin a and rectu m subst antia lly incre ases the yield of detec tion gucci red with sampl ing the vagin a alone . Penic illin G, ampic illin , or cefaz rosalba are indic ated for intra partu m proph ylaxi s of perin atal GBS colon izati on. Refle x susce ptibi lity testi ng shoul d be perfo rmed prior to use of clind amyci n only on GBS isola kush from penic illin -kurtis rgic women who are consi dered a high risk for anaph ylaxi s. Treat ment with vanco mycin witho ut addit ional testi ng is warra nted if resis tance to clind amyci n is noted . Not Available [facility] ([facility]) [address], [place], [address], 10/13/2022 16:13:48 10/11/19 23 10/12/2022 RPR, RFX QN RPR/C ONFIR M TP RPR Non Reacti ve nonrea ctive Not Available [facility] ([facility]) [address], [place], [address], 10/13/2022 16:13:48 10/11/19 23 10/12/2022 HIV AB/P2 4 AG WITH REFLE X HIV Ab/P24 Ag screen Non Reacti ve nonrea ctive HIV Negat nery HIV-1 /HIV- 2 antib odies and HIV-1 p24 antig en were NOT detec chava. There is no labor atory evide nce of HIV infec tion. Not Available [facility] ([facility]) [address], [place], [address], 10/13/2022 16:13:49 10/11/19 23 10/11/2022 urina lysis , dipst ick Leukocytes Negati ve Not Available In-Office Order Internal Use Only DO Not Attach Compendium DO Not Attach Compendium, Do Not Delete/merge, [id number] 10/11/2022 15:49:05 10/11/19 23 10/11/2022 urina lysis , dipst ick Nitrite negati ve Not Available In-Office Order Internal Use Only DO Not Attach Compendium DO Not Attach Compendium, Do Not Delete/merge, [id number] 10/11/2022 15:49:05 10/11/19 23 10/11/2022 urina lysis , dipst ick Urobilinogen .2 Not Available In-Of fice Order Internal Use Only DO Not Attach Compendium DO Not Attach Compendium, Do Not Delete/merge, [id number] 10/11/2022 15:49:05 10/11/19 23 10/11/2022 urina lysis , dipst ick Protein 30 Not Available In-Office Order Internal Use Only DO Not Attach Compendium DO Not Attach Compendium, Do Not Delete/merge, [id number] 10/11/2022 15:49:05 10/11/19 23 10/11/2022 urina lysis , dipst ick pH 7.0 Not Available In-Office Order Internal Use Only DO Not Attach Compendium DO Not Attach Compendium, Do Not Delete/merge, 10/11/2022 15:49:05 10/11/19 23 10/11/2022 urina lysis , dipst ick Blood Negati ve Not Available In-Office Order Internal Use Only DO Not Attach Compendium DO Not Attach Compendium, Do Not Delete/merge, 10/11/2022 15:49:05 10/11/19 23 10/11/2022 urina lysis , dipst ick Specific [place] 1.025 Not Available In-Off ice Order Internal Use Only DO Not Attach Compendium DO Not Attach Compendium, Do Not Delete/merge, 10/11/2022 15:49:05 10/11/19 23 10/11/2022 urina lysis , dipst ick Ketone Negati ve Not Available In-Office Order Internal Use Only DO Not Attach Compendium DO Not Attach Compendium, Do Not Delete/merge, 10/11/2022 15:49:05 10/11/19 23 10/11/2022 urina lysis , dipst ick Bilirubin Negati ve Not Available In-Office Order Internal Use Only DO Not Attach Compendium DO Not Attach Compendium, Do Not Delete/merge, 10/11/2022 15:49:05 10/11/19 23 10/11/2022 urina lysis , dipst ick Glucose 500 Not Available In-Office Order Internal Use Only DO Not Attach Compendium DO Not Attach Compendium, Do Not Delete/merge, 10/11/2022 15:49:05 10/11/19 23 10/11/2022 urina lysis , dipst ick Appearance Slight ly Cloudy Not Available In-Office Order Internal Use Only DO Not Attach Compendium DO Not Attach Compendium, Do Not Delete/merge, 10/11/2022 15:49:05 10/11/19 23 10/11/2022 urina lysis , dipst ick Color Yellow Not Available In-Office Order Internal Use Only DO Not Attach Compendium DO Not Attach Compendium, Do Not Delete/merge, 10/11/2022 15:49:05 10/19/19 23 10/19/2022 urina lysis , dipst ick Leukocytes Negati ve Not Available In-Office Order Internal Use Only DO Not Attach Compendium DO Not Attach Compendium, Do Not Delete/merge, 10/19/2022 16:20:38 10/19/19 23 10/19/2022 urina lysis , dipst ick Nitrite negati ve Not Available In-Office Order Internal Use Only DO Not Attach Compendium DO Not Attach Compendium, Do Not Delete/merge, 10/19/2022 16:20:38 10/19/19 23 10/19/2022 urina lysis , dipst ick Urobilinogen .2 Not Available In-Of fice Order Internal Use Only DO Not Attach Compendium DO Not Attach Compendium, Do Not Delete/merge, 10/19/2022 16:20:38 10/19/19 23 10/19/2022 urina lysis , dipst ick Protein Negati ve Not Available In-Office Order Internal Use Only DO Not Attach Compendium DO Not Attach Compendium, Do Not Delete/merge, 10/19/2022 16:20:38 10/19/19 23 10/19/2022 urina lysis , dipst ick pH 7.0 Not Available In-Office Order Internal Use Only DO Not Attach Compendium DO Not Attach Compendium, Do Not Delete/merge, 10/19/2022 16:20:38 10/19/19 23 10/19/2022 urina lysis , dipst ick Blood Negati ve Not Available In-Office Order Internal Use Only DO Not Attach Compendium DO Not Attach Compendium, Do Not Delete/merge, 10/19/2022 16:20:38 10/19/19 23 10/19/2022 urina lysis , dipst ick Specific [place] 1.020 Not Available In-Off ice Order Internal Use Only DO Not Attach Compendium DO Not Attach Compendium, Do Not Delete/merge, 10/19/2022 16:20:38 10/19/19 23 10/19/2022 urina lysis , dipst ick Ketone Negati ve Not Available In-Office Order Internal Use Only DO Not Attach Compendium DO Not Attach Compendium, Do Not Delete/merge, 10/19/2022 16:20:38 10/19/19 23 10/19/2022 urina lysis , dipst ick Bilirubin Negati ve Not Available In-Office Order Internal Use Only DO Not Attach Compendium DO Not Attach Compendium, Do Not Delete/merge, 10/19/2022 16:20:38 10/19/19 23 10/19/2022 urina lysis , dipst ick Glucose Negati ve Not Available In-Office Order Internal Use Only DO Not Attach Compendium DO Not Attach Compendium, Do Not Delete/merge, 10/19/2022 16:20:38 10/19/19 23 10/19/2022 urina lysis , dipst ick Appearance Clear Not Available In-Offi ce Order Internal Use Only DO Not Attach Compendium DO Not Attach Compendium, Do Not Delete/merge, 10/19/2022 16:20:38 10/19/19 23 10/19/2022 urina lysis , dipst ick Color Yellow Not Available In-Office Order Internal Use Only DO Not Attach Compendium DO Not Attach Compendium, Do Not Delete/merge, 10/19/2022 16:20:38 10/27/19 23 10/26/2022 urina lysis , dipst ick Leukocytes Trace Not Available In-Offi ce Order Internal Use Only DO Not Attach Compendium DO Not Attach Compendium, Do Not Delete/merge, 10/26/2022 15:49:45 10/27/19 23 10/26/2022 urina lysis , dipst ick Nitrite negati ve Not Available In-Office Order Internal Use Only DO Not Attach Compendium DO Not Attach Compendium, Do Not Delete/merge, 10/26/2022 15:49:45 10/27/1910/26/2022 urina lysis , dipst ick Urobilinogen .2 Not Available In-Of fice Order Internal Use Only DO Not Attach Compendium DO Not Attach Compendium, Do Not Delete/merge, 10/26/2022 15:49:45 10/27/19 23 10/26/2022 urina lysis , dipst ick Protein Negati ve Not Available In-Office Order Internal Use Only DO Not Attach Compendium DO Not Attach Compendium, Do Not Delete/merge, 10/26/2022 15:49:45 10/27/19 23 10/26/2022 urina lysis , dipst ick pH 7.0 Not Available In-Office Order Internal Use Only DO Not Attach Compendium DO Not Attach Compendium, Do Not Delete/merge, 10/26/2022 15:49:45 10/27/19 23 10/26/2022 urina lysis , dipst ick Blood Negati ve Not Available In-Office Order Internal Use Only DO Not Attach Compendium DO Not Attach Compendium, Do Not Delete/merge, 10/26/2022 15:49:45 10/27/1910/26/2022 urina lysis , dipst ick Specific [place] 1.025 Not Available In-Off ice Order Internal Use Only DO Not Attach Compendium DO Not Attach Compendium, Do Not Delete/merge, 10/26/2022 15:49:45 10/27/19 23 10/26/2022 urina lysis , dipst ick Ketone Trace Not Available In-Office Order Internal Use Only DO Not Attach Compendium DO Not Attach Compendium, Do Not Delete/merge, 10/26/2022 15:49:45 10/27/19 23 10/26/2022 urina lysis , dipst ick Bilirubin Negati ve Not Available In-Office Order Internal Use Only DO Not Attach Compendium DO Not Attach Compendium, Do Not Delete/merge, 10/26/2022 15:49:45 10/27/19 23 10/26/2022 urina lysis , dipst ick Glucose Negati ve Not Available In-Office Order Internal Use Only DO Not Attach Compendium DO Not Attach Compendium, Do Not Delete/merge, 10/26/2022 15:49:45 10/27/19 23 10/26/2022 urina lysis , dipst ick Appearance Slight ly Cloudy Not Available In-Office Order Internal Use Only DO Not Attach Compendium DO Not Attach Compendium, Do Not Delete/merge, 10/26/2022 15:49:45 10/27/19 23 10/26/2022 urina lysis , dipst ick Color Yellow Not Available In-Office Order Internal Use Only DO Not Attach Compendium DO Not Attach Compendium, Do Not Delete/merge, 10/26/2022 15:49:45 11/02/19 23 11/01/2022 urina lysis , dipst ick Leukocytes Negati ve Not Available In-Office Order Internal Use Only DO Not Attach Compendium DO Not Attach Compendium, Do Not Delete/merge, 11/01/2022 10:47:12 11/02/19 23 11/01/2022 urina lysis , dipst ick Nitrite negati ve Not Available In-Office Order Internal Use Only DO Not Attach Compendium DO Not Attach Compendium, Do Not Delete/merge, 11/01/2022 10:47:12 11/02/19 23 11/01/2022 urina lysis , dipst ick Urobilinogen .2 Not Available In-Of fice Order Internal Use Only DO Not Attach Compendium DO Not Attach Compendium, Do Not Delete/merge, 11/01/2022 10:47:12 11/02/19 23 11/01/2022 urina lysis , dipst ick Protein Negati ve Not Available In-Office Order Internal Use Only DO Not Attach Compendium DO Not Attach Compendium, Do Not Delete/merge, 11/01/2022 10:47:12 11/02/19 23 11/01/2022 urina lysis , dipst ick pH 7.0 Not Available In-Office Order Internal Use Only DO Not Attach Compendium DO Not Attach Compendium, Do Not Delete/merge, 11/01/2022 10:47:12 11/02/1911/01/2022 urina lysis , dipst ick Blood Negati ve Not Available In-Office Order Internal Use Only DO Not Attach Compendium DO Not Attach Compendium, Do Not Delete/merge, 11/01/2022 10:47:12 11/02/19 23 11/01/2022 urina lysis , dipst ick Specific [place] 1.020 Not Available In-Off ice Order Internal Use Only DO Not Attach Compendium DO Not Attach Compendium, Do Not Delete/merge, 11/01/2022 10:47:12 11/02/19 23 11/01/2022 urina lysis , dipst ick Ketone Negati ve Not Available In-Office Order Internal Use Only DO Not Attach Compendium DO Not Attach Compendium, Do Not Delete/merge, 11/01/2022 10:47:12 11/02/19 23 11/01/2022 urina lysis , dipst ick Bilirubin Negati ve Not Available In-Office Order Internal Use Only DO Not Attach Compendium DO Not Attach Compendium, Do Not Delete/merge, 11/01/2022 10:47:12 11/02/19 23 11/01/2022 urina lysis , dipst ick Glucose Negati ve Not Available In-Office Order Internal Use Only DO Not Attach Compendium DO Not Attach Compendium, Do Not Delete/merge, 11/01/2022 10:47:12 11/02/19 23 11/01/2022 urina lysis , dipst ick Appearance Clear Not Available In-Offi ce Order Internal Use Only DO Not Attach Compendium DO Not Attach Compendium, Do Not Delete/merge, 11/01/2022 10:47:12 11/02/19 23 11/01/2022 urina lysis , dipst ick Color Yellow Not Available In-Office Order Internal Use Only DO Not Attach Compendium DO Not Attach Compendium, Do Not Delete/merge, 11/01/2022 10:47:12 12/06/19 23 12/05/2022 edinb urgh postn atal depre ssion scale * Score 10 Not Available In-Office Order Internal Use Only DO Not Attach Compendium DO Not Attach Compendium, Do Not Delete/merge, [id number] 12/05/2022 22:29:11 01/25/20 24 01/29/2024 NUSWA B VAGIN ITIS PLUS (VG+) atopobium vaginae LOW - 0 score Not Available [facility] ([facility]) [address], [place], [address], 01/29/2024 11:11:58 01/25/20 24 01/29/2024 NUSWA B VAGIN ITIS PLUS (VG+) bvab 2 LOW - 0 score Not Available [facility] ([facility]) [address], [place], [address], 01/29/2024 11:11:58 01/25/20 24 01/29/2024 NUSWA B VAGIN ITIS PLUS (VG+) megasphaera 1 LOW - 0 score Calcu late total score by britta g the 3 indiv idual bacte rial vagin osis (BV) marke r score s toget her. Total score is inter prete d as follo ws: Total score 0-1: Indic ates the absen ce of BV. Total score 2: Indet ermin ate for BV. Addit ional clini nabor data shoul d be evalu ated to estab yesenia a diagn osis. Total score 3-6: Indic ates the prese nce of BV. Not Available [facility] ([facility]) [address], [place], [address], 01/29/2024 11:11:58 01/25/20 24 01/29/2024 NUSWA B VAGIN ITIS PLUS (VG+) stefan albicans, MARTY NEGATI VE negati ve Not Available [facility] ([facility]) [address], [place], [address], 01/29/2024 11:11:58 01/25/20 24 01/29/2024 NUA B VAGIN ITIS PLUS (VG+) stefan glabrata, MARTY NEGATI VE negati ve Not Available [facility] ([facility]) [address], [place], [address], 01/29/2024 11:11:58 01/25/20 24 01/29/2024 NUA B VAGIN ITIS PLUS (VG+) trich vag by MARTY NEGATI VE negati ve Not Available [facility] ([facility]) [address], [place], [address], 01/29/2024 11:11:58 01/25/20 24 01/29/2024 NUA B VAGIN ITIS PLUS (VG+) chlamydia trachomatis, MARTY NEGATI VE negati ve Not Available [facility] ([facility]) [address] [place], [address], 01/29/2024 11:11:58 01/25/20 24 01/29/2024 NUA B VAGIN ITIS PLUS (VG+) neisseria gonorrhoeae, MARTY NEGATI VE negati ve Not Available [facility] ([facility]) [address], [place], [address], 01/29/2024 11:11:58 01/25/20 24 01/29/2024 M GENIT ALIUM MARTY, SWAB mycoplasma genitalium MARTY NEGATI VE negati ve Not Available [facility] ([facility]) [address] [place], [address], 01/29/2024 11:11:59 01/25/20 24 01/26/2024 IGP, APTIM A HPV, RFX 16/18 ,45 HPV aptima NEGATI VE negati ve This nucle ic acid ampli ficat ion test detec ts fourt een high- risk HPV types (16,1 8,31, 33,35 ,39,4 5,51, 52,56 ,58,5 9,66, 68) witho ut diffe renti ation . Not Available [facility] ([facility]) [address], [place], [address], 01/30/2024 16:12:14 01/25/20 24 01/30/2024 IGP, APTIM A HPV, RFX 16/18 ,45 diagnosis: SOWMYA MATHIAS NERY FOR INTRA EPITH ELIAL LESIO N OR ELZA WETZEL . Not Available [facility] ([facility]) [address], [place], [address], 01/30/2024 16:12:14 01/25/20 24 01/30/2024 IGP, APTIM A HPV, RFX 16/18 ,45 specimen adequacy: SOWMYA Fitzpatrick Satis facto ry for evalu ation . Endoc ervic al and/o r squam ous metap lasti c cells (endo cervi nabor compo nent) are prese nt. Not Available [facility] ([facility]) [address], [place], [address], 01/30/2024 16:12:14 01/25/20 24 01/30/2024 IGP, APTIM A HPV, RFX 16/18 ,45 clinician provided ICD10: SOWMYA Fitzpatrick Z01.4 19 N89.8 Not Available [facility] ([facility]) [address], [place], [address], 01/30/2024 16:12:14 01/25/20 24 01/30/2024 IGP, APTIM A HPV, RFX 16/18 ,45 performed by: SOWMYA guerra, Cytot william greene t (ASCP ) Not Available [facility] ([facility]) [address] [place], [address], 01/30/2024 16:12:14 01/25/20 24 01/30/2024 IGP, APTIM A HPV, RFX 16/18 ,45 . . Not Available [facility] ([facility]) [address] [place], [address], 01/30/2024 16:12:14 01/25/20 24 01/30/2024 IGP, APTIM A HPV, RFX 16/18 ,45 note: COMMEN T The Pap smear is a scree marissa test desig phuc to aid in the detec tion of ilia ligna nt and malig nant condi tions of the uteri ne cervi x. It is not a diagn ostic proce dure and shoul d not be used as the sole means of detec ting cervi nabor cance r. Both false -posi tive and false -nega tive repor ts do occur . Not Available [facility] ([facility]) [address] [place], [address], 01/30/2024 16:12:14 01/25/20 24 01/30/2024 IGP, APTIM A HPV, RFX 16/18 ,45 test methodology: - The Thin Prep( R) Image r was unabl e to read this speci men. There fore a manua l revie w was perfo rmed. Not Available [facility] ([facility]) [address] [place], [address], 01/30/2024 16:12:14 01/25/20 24 01/30/2024 IGP, APTIM A HPV, RFX 16/18 ,45 HPV genotype reflex COMMEN T Crite hardy not met, HPV Genot ype not perfo rmed. Not Available [facility] ([facility]) [address] [place], [address], 01/30/2024 16:12:14 10/10/19 25 10/11/2024 CT, NG, TRICH VAG BY MARTY chlamydia by MARTY NEGATI VE negati ve Not Available [facility] ([facility]) [address] [place], [address], 10/12/2024 07:13:40 10/10/19 25 10/11/2024 CT, NG, TRICH VAG BY MARTY gonococcus by MARTY NEGATI VE negati ve Not Available [facility] ([facility]) [address] [place], [address], 10/12/2024 07:13:40 10/10/19 25 10/11/2024 CT, NG, TRICH VAG BY MARTY trich vag by MARTY NEGATI VE negati ve Not Available [facility] ([facility]) [address] [place], [address], 10/12/2024 07:13:40 10/10/19 25 10/11/2024 HGB FRACT IONAT ION CASCA DE HGB F 0.3 % 0.0-2. 0 Not Available [facility] ([facility]) [address] [place], [address], 10/23/2024 07:17:47 10/10/19 25 10/11/2024 HGB FRACT IONAT ION CASCA DE HGB A 97.1 % 96.4-9 8.8 Not Available [facility] ([facility]) [address] [place], [address], 10/23/2024 07:17:47 10/10/19 25 10/11/2024 HGB FRACT IONAT ION CASCA DE HGB A2 2.6 % 1.8-3. 2 Not Available [facility] ([facility]) [address] [place], [address], 10/23/2024 07:17:47 10/10/19 25 10/11/2024 HGB FRACT IONAT ION CAS[place] DE HGB S 0.0 % 0.0 Not Available [facility] ([facility]) [address] [place], [address], 10/23/2024 07:17:47 10/10/19 25 10/11/2024 HGB FRACT IONAT ION CASCA DE interpretati on: COMMEN T Mer l hemog lobin prese nt; no hemog lobin varia nt or beta thala ssemi a ident ified . Note: Alpha thala ssemi a may not be detec chava by the Hgb Fract ionat ion [place] de panel . If alpha thala ssemi a is suspe cted, [facility] offer s Alpha -Thal assem ia DNA Navin sis (#[id number]). Not Available [facility] ([facility]) [address], [place], [address], 10/23/2024 07:17:47 10/10/19 25 10/11/2024 INTER PRETA TION: interpretati on: Commen t Not infec chava with HCV unles s early or acute infec tion is suspe cted (whic h may be delay ed in an immun ocomp romis ed indiv idual ), or other evide nce exist s to indic ate HCV infec tion. Not Available [facility] ([facility]) [address], [place], [address], 10/23/2024 07:17:48 10/10/1910/11/2024 PREGN SHIVA, INITI AL SCREE N HBsAg screen NEGATI VE negati ve Not Available [facility] ([facility]) [address], [place], [address], 10/23/2024 07:17:49 10/10/19 25 10/11/2024 PREGN SHIVA, INITI AL SCREE N HCV Ab NON REACTI VE nonrea ctive Not Available [facility] ([facility]) [address] [place], [address], 10/23/2024 07:17:49 10/10/1910/11/2024 PREGN SHIVA, INITI AL SCREE N RPR NON REACTI VE nonrea ctive Not Available [facility] ([facility]) [address] [place], [address], 10/23/2024 07:17:49 10/10/19 10/11/2024 PREGN SHIVA, INITI AL SCREE N rubella antibodies, IgG 0.91 index immune >0.99 below low normal A secon d sampl e shoul d be colle cted and teste d no less than 2-4 weeks . Non-i mmune <0.90 Equiv ocal 0.90 - 0.99 Immun e >0.99 Not Available [facility] ([facility]) [address], [place], [address], 10/23/2024 07:17:49 10/10/1910/11/2024 PREGN SHIVA, INITI AL SCREE N ABO grouping O Not Available [facility] ([facility]) [address], [place], [address], 10/23/2024 07:17:49 10/10/1910/11/2024 PREGN SHIVA, INITI AL SCREE N Rh factor POSITI VE Pleas e note: Prior recor ds for this patie nt's ABO / Rh type are not avail able for addit ional verif icati on. Not Available [facility] ([facility]) [address], [place], [address], 10/23/2024 07:17:49 10/10/1910/11/2024 PREGN SHIVA, INITI AL SCREE N antibody screen NEGATI VE negati ve Not Available [facility] ([facility]) [address], [place], [address], 10/23/2024 07:17:49 10/10/1910/11/2024 PREGN SHIVA, INITI AL SCREE N HIV Ab/P24 Ag screen NON REACTI VE nonrea ctive HIV-1 /HIV- 2 antib odies and HIV-1 p24 antig en were NOT detec chava. There is no labor atory evide nce of HIV infec tion. HIV Negat nery Not Available [facility] ([facility]) [address], [place], [address], 10/23/2024 07:17:49 10/10/19 25 10/11/2024 PREGN SHIVA, INITI AL SCREE N chlamydia trachomatis, MARTY NEGATI VE negati ve Not Available [facility] ([facility]) [address], [place], [address], 10/23/2024 07:17:49 10/10/19 25 10/11/2024 PREGN SHIVA, INITI AL SCREE N neisseria gonorrhoeae, MARTY NEGATI VE negati ve Not Available [facility] ([facility]) [address], [place], [address], 10/23/2024 07:17:49 10/10/1910/11/2024 PREGN SHIVA, INITI AL SCREE N WBC 8.3 x10e3 /uL 3.4-10 .8 Not Available [facility] ([facility]) [address], [place], [address], 10/23/2024 07:17:49 10/10/19 25 10/11/2024 PREGN SHIVA, INITI AL SCREE N RBC 4.54 x10e6 /uL 3.77-5 .28 Not Available [facility] ([facility]) [address], [place], [address], 10/23/2024 07:17:49 10/10/19 25 10/11/2024 PREGN SHIVA, INITI AL SCREE N hemoglobin 14.3 g/dL 11.1-1 5.9 Not Available [facility] ([facility]) [address] [place], [address], 10/23/2024 07:17:49 10/10/1910/11/2024 PREGN SHIVA, INITI AL SCREE N hematocrit 43.0 % 34.0-4 6.6 Not Available [facility] ([facility]) [address] [place], [address], 10/23/2024 07:17:49 10/10/1910/11/2024 PREGN SHIVA, INITI AL SCREE N MCV 95 fL 79-97 Not Available [facility] ([facility]) [address], [place], [address], 10/23/2024 07:17:49 10/10/19 25 10/11/2024 PREGN SHIVA, INITI AL SCREE N MCH 31.5 pg 26.6-3 3.0 Not Available [facility] ([facility]) [address], [place], [address], 10/23/2024 07:17:49 10/10/19 25 10/11/2024 PREGN SHVIA, INITI AL SCREE N MCHC 33.3 g/dL 31.5-3 5.7 Not Available [facility] ([facility]) [address], [place], [address], 10/23/2024 07:17:49 10/10/19 25 10/11/2024 PREGN SHIVA, INITI AL SCREE N RDW 11.2 % 11.7-1 5.4 below low normal Not Available [facility] ([facility]) [address], [place], [address], 10/23/2024 07:17:49 10/10/19 25 10/11/2024 PREGN SHIVA, INITI AL SCREE N platelets 262 x10e3 /uL 150-45 0 Not Available [facility] ([facility]) [address] [place], [address], 10/23/2024 07:17:49 10/10/19 25 10/11/2024 PREGN SHIVA, INITI AL SCREE N neutrophils 61 % notest ab. Not Available [facility] ([facility]) [address] [place], [address], 10/23/2024 07:17:49 10/10/19 25 10/11/2024 PREGN SHIVA, INITI AL SCREE N lymphs 28 % notest ab. Not Available [facility] ([facility]) [address], [place], [address], 10/23/2024 07:17:49 10/10/19 25 10/11/2024 PREGN SHIVA, INITI AL SCREE N monocytes 9 % notest ab. Not Available [facility] ([facility]) [address], [place], [address], 10/23/2024 07:17:49 10/10/19 25 10/11/2024 PREGN SHIVA, INITI AL SCREE N eos 1 % notest ab. Not Available [facility] ([facility]) [address], [place], [address], 10/23/2024 07:17:49 10/10/19 25 10/11/2024 PREGN SHIVA, INITI AL SCREE N basos 0 % notest ab. Not Available [facility] ([facility]) [address], [place], [address], 10/23/2024 07:17:49 10/10/19 25 10/11/2024 PREGN SHIVA, INITI AL SCREE N neutrophils (absolute) 5.1 x10e3 /uL 1.4-7. 0 Not Available [facility] ([facility]) [address], [place], [address], 10/23/2024 07:17:49 10/10/19 25 10/11/2024 PREGN SHIVA, INITI AL SCREE N lymphs (absolute) 2.3 x10e3 /uL 0.7-3. 1 Not Available [facility] ([facility]) [address], [place], [address], 10/23/2024 07:17:49 10/10/19 25 10/11/2024 PREGN SHIVA, INITI AL SCREE N monocytes(ab solute) 0.8 x10e3 /uL 0.1-0. 9 Not Available [facility] ([facility]) [address], [place], [address], 10/23/2024 07:17:49 10/10/1910/11/2024 PREGN SHIVA, INITI AL SCREE N eos (absolute) 0.1 x10e3 /uL 0.0-0. 4 Not Available [facility] ([facility]) [address], [place], [address], 10/23/2024 07:17:49 10/10/1910/11/2024 PREGN SHIVA, INITI AL SCREE N baso (absolute) 0.0 x10e3 /uL 0.0-0. 2 Not Available [facility] ([facility]) [address] [place], [address], 10/23/2024 07:17:49 10/10/1910/11/2024 PREGN SHIVA, INITI AL SCREE N immature granulocytes 1 % notest ab. Not Available [facility] ([facility]) [address] [place], [address], 10/23/2024 07:17:49 10/10/1910/11/2024 PREGN SHIVA, INITI AL SCREE N immature grans (abs) 0.0 x10e3 /uL 0.0-0. 1 Not Available [facility] ([facility]) [address] [place], [address], 10/23/2024 07:17:49 10/10/1910/11/2024 PREGN SHIVA, INITI AL SCREE N specific gravity 1.009 1.005- 1.030 Not Available [facility] ([facility]) [address] [place], [address], 10/23/2024 07:17:49 10/10/1910/11/2024 PREGN SHIVA, INITI AL SCREE N pH 6.5 5.0-7. 5 Not Available [facility] ([facility]) [address] [place], [address], 10/23/2024 07:17:49 10/10/19 25 10/11/2024 PREGN SHIVA, INITI AL SCREE N urine-color YELLOW yellow Not Available [facility] ([facility]) [address] [place], [address], 10/23/2024 07:17:49 10/10/19 25 10/11/2024 PREGN SHIVA, INITI AL SCREE N appearance CLEAR clear Not Available [facility] ([facility]) [address] [place], [address], 10/23/2024 07:17:49 10/10/19 25 10/11/2024 PREGN SHIVA, INITI AL SCREE N WBC esterase NEGATI VE negati ve Not Available [facility] ([facility]) [address] [place], [address], 10/23/2024 07:17:49 10/10/19 25 10/11/2024 PREGN SHIVA, INITI AL SCREE N protein NEGATI VE negati ve/tra ce Not Available [facility] ([facility]) [address] [place], [address], 10/23/2024 07:17:49 10/10/19 25 10/11/2024 PREGN SHIVA, INITI AL SCREE N glucose NEGATI VE negati ve Not Available [facility] ([facility]) [address] [place], [address], 10/23/2024 07:17:49 10/10/19 25 10/11/2024 PREGN SHIVA, INITI AL SCREE N ketones NEGATI VE negati ve Not Available [facility] ([facility]) [address] [place], [address], 10/23/2024 07:17:49 10/10/19 25 10/11/2024 PREGN SHIVA, INITI AL SCREE N occult blood NEGATI VE negati ve Not Available [facility] ([facility]) [address] [place], [address], 10/23/2024 07:17:49 10/10/19 25 10/11/2024 PREGN SHIVA, INITI AL SCREE N bilirubin NEGATI VE negati ve Not Available [facility] ([facility]) [address], [place], [address], 10/23/2024 07:17:49 10/10/1910/11/2024 PREGN SHIVA, INITI AL SCREE N urobilinogen ,semi-qn 0.2 mg/dL 0.2-1. 0 Not Available [facility] ([facility]) [address], [place], [address], 10/23/2024 07:17:49 10/10/19 25 10/11/2024 PREGN SHIVA, INITI AL SCREE N nitrite, urine NEGATI VE negati ve Not Available [facility] ([facility]) [address], [place], [address], 10/23/2024 07:17:49 10/10/1910/11/2024 PREGN SHIVA, INITI AL SCREE N microscopic examination COMMEN T Micro scopi c follo ws if indic ated. Not Available [facility] ([facility]) [address], [place], [address], 10/23/2024 07:17:49 10/10/1910/11/2024 PREGN SHIVA, INITI AL SCREE N microscopic examination SEE BELOW: Micro scopi c was indic ated and was perfo rmed. Not Available [facility] ([facility]) [address] [place], [address], 10/23/2024 07:17:49 10/10/19 25 10/12/2024 PREGN SHIVA, INITI AL SCREE N urine culture,pren atal, w/gbs FINAL REPORT Not Available [facility] ([facility]) [address], [place], [address], 10/23/2024 07:17:49 10/10/19 25 10/11/2024 MICRO SCOPI C EXAMI NATIO N WBC 0-5 /hpf 0-5 Not Available [facility] ([facility]) [address], [place], [address], 10/23/2024 07:17:51 10/10/19 25 10/11/2024 MICRO SCOPI C EXAMI NATIO N RBC 0-2 /hpf 0-2 Not Available [facility] ([facility]) [address], [place], [address], 10/23/2024 07:17:51 10/10/19 25 10/11/2024 MICRO SCOPI C EXAMI NATIO N epithelial cells (non renal) 0-10 /hpf 0-10 Not Available [facility] ([facility]) [address], [place], [address], 10/23/2024 07:17:51 10/10/19 25 10/11/2024 MICRO SCOPI C EXAMI NATIO N casts None seen /lpf nonese en Not Available [facility] ([facility]) [address], [place], [address], 10/23/2024 07:17:51 10/10/19 25 10/11/2024 MICRO SCOPI C EXAMI NATIO N bacteria None seen nonese en/few Not Available [facility] ([facility]) [address] [place], [address], 10/23/2024 07:17:51 10/10/19 25 10/11/2024 UA/M W/RFL X CULTU RE, ROUTI NE urinalysis reflex COMMEN T This speci men will not refle x to a Urine Cultu re. Not Available [facility] ([facility]) [address] [place], [address], 10/23/2024 07:17:51 10/10/1910/22/2024 CYSTI C FIBRO SIS, 97 VARIA NTS ethnicity Commen t Not Provi ded Not Available [facility] ([facility]) [address] [place], [address], 10/23/2024 07:17:52 10/10/1910/22/2024 CYSTI C FIBRO SIS, 97 VARIA NTS specimen type Commen t Whole Blood Not Available [facility] ([facility]) [address], [place], [address], 10/23/2024 07:17:52 10/10/1910/22/2024 CYSTI C FIBRO SIS, 97 VARIA NTS indication Commen t Carolina er Test / Scree marissa Not Available [facility] ([facility]) [address], [place], [address], 10/23/2024 07:17:52 10/10/1910/22/2024 CYSTI C FIBRO SIS, 97 VARIA NTS result: Commen t NEGAT NERY Not Available [facility] ([facility]) [address], [place], [address], 10/23/2024 07:17:52 10/10/1910/22/2024 CYSTI C FIBRO SIS, 97 VARIA NTS interpretati on Commen t Negat nery Resul ts Disor ders (Gene ) Resul t Inter preta tion Cysti c fibro sis NEGAT NERY This resul t reduc es, (CFTR ) but does not NM_00 0492. 4 elimi lyndsey, the risk to be a carolina er. Risk: At reduc ed risk for an affec chava pregn shiva. For ethni c-spe cific risk robert ions see Infor olivier n Table . Not Available [facility] ([facility]) [address] [place], [address], 10/23/2024 07:17:52 10/10/1910/22/2024 CYSTI C FIBRO SIS, 97 VARIA NTS recommendati ons Commen t If the above resul t is posit nery, marquez ic couns eling is recom edson d to discu ss the poten tial clini nabor and/o r repro ducti ve impli catio ns, as well as recom menda tions for testi ng famil y membe rs and, when appli cable , this indiv idual 's partn er. Marquez ic couns eling servi jodie are avail able. To acces s [facility] Marquez ic Couns elors pleas e visit [email or web address] :[email or web address] e[facility] .[facility] orp.c om/ge netic -coun daya g or call [phone] GC-[phone] LLS ([phone]). Not Available [facility] ([facility]) [address], [place], [address], 10/23/2024 07:17:52 10/10/1910/22/2024 CYSTI C FIBRO SIS, 97 VARIA NTS additional clinicalinfo rmation Commen t Cysti c fibro sis (CF) is an autos omal reces sive disor miri with varia ble sever ity and age at onset . Signs and sympt oms of class ic CF may inclu de eleva chava sweat chlor sue level s, progr essiv e lung disea se, pancr eatic insuf ficie ncy, and male infer tilit y. Sympt oms of mild CF may inclu de pancr eatic suffi cienc y. Sympt oms of CFTR- relat ed disor ders may inclu de pancr eatit is, bronc hiect asis, and isola chava male infer tilit y due to conge nital absen ce of the vas defer ens (CBAV D). Treat ment is dieta ry and suppo rtive . Genot ype-t arget ed thera pies may be avail able for some indiv idual s. In sever uriah affec chava indiv idual s, lung trans plant ation may be indic ated. (PMID :[id number]) . Not Available [facility] ([facility]) [address], [place], [address], 10/23/2024 07:17:52 10/10/1910/22/2024 CYSTI C FIBRO SIS, 97 VARIA NTS comments Commen t This inter preta tion is based on the clini nabor infor matio n provi ded and the curre nt under stand ing of the molec ular marquez ics of the disor miri(s ) teste d. Infor matslime n about the disor miri(s ) teste d is avail able at https ://[facility] .[facility] orp.c om. Not Available [facility] ([facility]) [address], [place], [address], 10/23/2024 07:17:52 10/10/1910/22/2024 CYSTI C FIBRO SIS, 97 VARIA NTS methods/limi tations Commen t Next- gener ation Seque ncing (NGS) : Genom ic regio ns of inter est in the CFTR gene are selec chava using the Hypercontext ience (R) hybri dizat ion captu re metho d and seque nced via the BaubleBar(R ) NGS platf orm. Seque ncing reads are align ed to the human genom e refer ence GRCh3 7/hg1 9 build . Regio ns of inter est inclu de genom ic regio ns encom passi ng targe chava varia nts. Navin tical sensi tivit y is estim ated to be >99% for singl e nucle otide varia nts and small inser tions /leatha tions . Varia nt detec tion is perfo rmed by [facility] [employer] and in-ho use algor ithms . Confi rmato ry testi ng is done by Sangmina r seque ncing . Varia nts are speci fied using the numbe ring and nomen clatu re recom edson d by the Human Genom e Varia tion Socie ty (HGVS , http: //www .hgvs .org/ ). Varia nt class ifica tion and confi rmati on are consi stent with ACMG stand ards and guide lines (Zaheer ards, PMID: [id number]; Britney, PMID: [id number]). Navin sis is restr icted to Yusra larsen mendel Kumar below . c.54- 5940_ 273+1 0250d el21k b, c.178 G>T (p.Gl u60*) , c.223 C> T (p.Ar g75*) , c.254 G>A (p.Gl y85Gl u), c.262 _263d elTT (p.Le u88Il efs*2 2), c.273 +1G>A , c.273 +3A>C , c.274 -1G>A , c.274 G>T (p.Gl u92*) , c.313 Hossein (p.Il e105S erfs* 2), c.325 _327d elins G (p.Ty r109G lyfs* 4), c.349 C>T (p.Ar g117C ys), c.350 G>A (p.Ar g117H is), c.366 T>A (p.Ty r122* ), c.442 Hossein (p.Il e148L eufs* 5), c.489 +1G>T , c.531 delT (p.Il e177M etfs* 12), c.532 G>A (p.Gl y178A rg), c.579 +1G&g t;T, c.579 +5G>A , c.580 -1G>T , c.617 T>G (p.Le u206T rp), c.803 Hossein (p.As n268I lefs* 17), c.805 _806d elAT (p.Il e269P rofs* 4), c.935 _937d elTCT (p.Ph e312d el), c.948 delT (p.Ph e316L eufs* 12), c.988 G>T (p.Gl y330* ), c.100 0C>T (p.Ar g334T rp), c.101 3C>T (p.Th r338I le), c.104 0G>A (p.Ar g347H is), c.104 0G>C (p.Ar g347P ro), c.105 5G>A (p.Ar g352G ln), c.[10 75C>A ;1079 C>A] (p.[G ln359 Saranya;T hr360 Saranya]) , c.115 5_115 6dupT A (p.As n386I lefs* 3), c.136 4C>A (p.Al a455G zhen), c.143 8G>T (p.Gl y480C ys), c.147 7C>T (p.Gl n493* ), c.151 9_152 1delA TC (p.Il e507d el), c.152 1_152 3delC TT (p.Ph e508d el), c.154 5_154 6delT A (p.Ty r515* ), c.155 8G>T (p.Va l520P he), c.157 2C>A (p.Cy s524* ), c.158 5-1G> A, c.162 4G>T (p.Gl y542* ), c.164 6G>A (p.Se r549A sn), c.164 7T>G (p.Se r549A rg), c.165 2G>A (p.Gl y551A sp), c.165 4C>T (p.Gl n552* ), c.165 7C>T (p.Ar g553* ), c.167 5G>A (p.Al a559T hr), c.167 9G>C (p.Ar g560T hr), c.168 0-1G> A, c.172 1C>A (p.Pr o574H is), c.176 6+1G> A, c.176 6+5G> T, c.182 0_190 3del8 4 (p.Me t607_ Gln63 4del) , c.191 1delG (p.Gl n637H isfs* 26), c.192 3_193 1deli nsA (p.Se r641A rgfs* 5), c.197 3_198 5deli nsAGA AA (p.Ar g658L ysfs* 4), c.197 6delA (p.As n659I lefs* 4), c.201 2delT (p.Le u671* ), c.205 1_205 2deli nsG (p.Ly s684S erfs* 38), c.205 2delA (p.Ly s684A snfs* 38), c.205 2dupA (p.Gl n685T hrfs* 4), c.212 5C>T (p.Ar g709* ), c.212 8A>T (p.Ly s710* ), c.217 5dupA (p.Gl u726A rgfs* 4), c.229 0C>T (p.Ar g764* ), c.265 7+5G> A, c.266 8C>T (p.Gl n890* ), c.273 7_273 8insG (p.Ty r913* ), c.298 8G>A (p.Gl n996= ), c.298 8+1G> A, c.303 9delC (p.Ty r1014 Thrfs *9), c.306 7_307 2delA TAGTG (p.Il e1023 _Val1 024de l), c.319 6C>T (p.Ar g1066 Cys), c.326 6G>A (p.Tr p1089 *), c.327 6C>A (p.Ty r1092 *), c.327 6C>G (p.Ty r1092 *), c.330 2T>A (p.Me t1101 Saranya), c.345 4G>C (p.As p1152 His), c.347 2C>T (p.Ar g1158 *), c.348 4C>T (p.Ar g1162 *), c.352 8delC (p.Ly s1177 Serfs *15), c.353 6_353 9delC CAA (p.Th r1179 Asnfs *12), c.358 7C>G (p.Se r1196 *), c.361 1G>A (p.Tr p1204 *), c.365 9delC (p.Th r1220 Lysfs *8), c.371 2C>T (p.Gl n1238 *), c.371 8-247 7C>T, c.374 4delA (p.Ly s1250 Argfs *9), c.375 2G>A (p.Se r1251 Asn), c.376 4C>A (p.Se r1255 *), c.377 3dupT (p.Le u1258 Phefs *7), c.384 6G>A (p.Tr p1282 *), c.388 9dupT (p.Se r1297 Phefs *5), c.390 9C>G (p.As n1303 Saranya) Limit ation s: Techn ologi es used do not detec t germl ine mosai cism and do not rule out the prese nce of large chrom osoma l aberr ation s inclu ding rearr angem ents and gene fusio ns, or varia nts in regio ns or genes not inclu ded in this test, or possi ble inter /intr ageni c inter actio ns betwe en varia nts, or repea t expan sions . Varia nt class ifica tion and/o r inter preta tion may aguirre e over time if more infor matio n becom es avail able. False posit nery or false negat nery resul ts may occur for reaso ns that inclu de: rare marquez ic varia nts, sex chrom osome abnor malit ies, pseud ogene inter feren ce, blood trans fusio ns, bone marro w trans plant ation , somat ic or tissu e-spe cific mosai cism, misla beled sampl es, or elfego eous repre senta tion of famil y relat ionsh ips. This test was devel oped and its perfo rmanc e darren cteri stics deter mined by [facility]. It has not been clear ed or appro ronny by the Food and Drug Admin istra tion. Not Available [facility] ([facility]) [address], [place], [address], 10/23/2024 07:17:52 10/10/19 25 10/22/2024 CYSTI C FIBRO SIS, 97 VARIA NTS information table Commen t Cysti c fibro sis, 97 varia nts, risk reduc tions for indiv idual s with no famil y histo ry Popul ation Detec tion rate Pre-t est Post- test carolina er carolina er risk risk with negat nery resul t Ashke nazi 97% 1 in 24 1 in 767 Jewis h 55% 1 in 94 1 in 208 Ameri can Black 81% 1 in 61 1 in 316 Hispa nelly 78% 1 in 58 1 in 260 White 93% 1 in 25 1 in 343 Mixed or For couns eling other ethni c purpo ses, backg round consi miri using the ethni c backg round with the most conse rvati ve risk estim ates. Not Available [facility] ([facility]) [address], [place], [address], 10/23/2024 07:17:52 10/10/1910/22/2024 CYSTI C FIBRO SIS, 97 VARIA NTS references Commen t Brenda herman JL, Astvera ry C, Cutti ng GR et al. CFTR varia nt testi ng: a techn ical stand mercedes of the [facility] ([facility] ). [facility] 22, 5592 (2020 ). PMID: [id number] Jeanine T, Soham moffett SG, Mandeep brink BA, et al. Cysti c Fibro sis and Conge nital Absen ce of the Vas Defer ens. 2000 [Upda chava 2016Sep 29]. In: Jos DIA, Shayna reyes HH, Robert RA, et al., jair rs. GeneR candelario guerra(R) [Inte rnet] . PMID: [id number] 428 Not Available [facility] ([facility]) [address], [place], [address], 10/23/2024 07:17:52 10/10/1910/22/2024 CYSTI C FIBRO SIS, 97 VARIA NTS director review/relea se Commen t [place] nent Type Perfo rmed At Labor atory Direc tor Techn ical Labor atory Anjen Chenn , compo nent, Corpo ratio n of , PhD proce ssing [facility], [address] , [place], [address] Techn ical Labor atory Sai Bone , compo nent, Corpo ratio n of , PhD navin sis [facility], [address] , [place], [address] Profe ssion al Labor atory Armando merrill, compo nent Corpo ratio n of PhD, FACMG [facility], [address], [place], [address] Elect celso allwiliam relea sed by Armando merrill, PhD, FAC Not Available [facility] ([facility]) [address] [place], [address], 10/23/2024 07:17:52 10/10/19 25 10/22/2024 CYSTI C FIBRO SIS, 97 VARIA NTS pdf . Not Available [facility] ([facility]) [address] [place], [address], 10/23/2024 07:17:52 10/10/19 25 10/16/2024 SPINA L MUSCU LAR ATROP HY (SMA) ethnicity COMMEN T Not Provi ded Not Available [facility] ([facility]) [address] [place], [address], 10/23/2024 07:17:53 10/10/19 25 10/16/2024 SPINA L MUSCU LAR ATROP HY (SMA) specimen type COMMEN T Whole Blood Not Available [facility] ([facility]) [address] [place], [address], 10/23/2024 07:17:53 10/10/19 25 10/16/2024 SPINA L MUSCU LAR ATROP HY (SMA) indication COMMEN T Carolina er Test / Scree marissa Not Available [facility] ([facility]) [address] [place], [address], 10/23/2024 07:17:53 10/10/19 25 10/16/2024 SPINA L MUSCU LAR ATROP HY (SMA) result: COMMEN T NEGAT NERY Not Available [facility] ([facility]) [address], [place], [address], 10/23/2024 07:17:53 10/10/19 25 10/16/2024 SPINA L MUSCU LAR ATROP HY (SMA) interpretati on COMMEN T Negat nery Resul ts Disor ders (Gene ) Resul t Inter preta tion Spina l muscu lar NEGAT NERY : 3 This resul t reduc es, atrop hy (SMN1 ) (or more) but does not [id number]. 4 copie s of elimi lyndsey, the risk SMN1. to be a carolina er. Risk: NOT at an incre ased risk for an affec chava pregn shiva. Not Available [facility] ([facility]) [address], [place], [address], 10/23/2024 07:17:53 10/10/19 25 10/16/2024 SPINA L MUSCU LAR ATROP HY (SMA) recommendati ons COMMEN T If the above resul t is posit nery, marquez ic couns avelino is recom edson d to discu ss the poten tial clini nabor and/o r repro ducti ve impli catio ns, as well as recom menda tions for testi ng famil y membe rs and, when appli cable , this indiv idual 's partn er. Marquez ic couns avelino servi jodie are avail able. To acces s [facility] Marquez ic Couns caridad fritz e visit [email or web address] :[email or web address] [email or web address] orp.c om/ge netic -coun daya stevenson or call (149) -[facility] [phone]). Not Available [facility] ([facility]) [address], [place], [address], 10/23/2024 07:17:53 10/10/19 25 10/16/2024 SPINA L MUSCU LAR ATROP HY (SMA) additional clinicalinfo rmation COMMEN T Spina l muscu lar atrop hy (SMA) is an autos omal reces sive neuro degen erati ve disor miri with varia ble age at onset and sever ity, darren cteri zed by progr essiv e degen erati on of the lower motor neuro ns in the spina l cord and brain stem, leadi ng to muscl e weakn ess, and in its most commo n form, respi rator y failu re by age two. Compl icati ons of SMA may inclu de poor weigh t gain, sleep diffi culti es, pneum onia, scoli osis, and joint defor mitie s. In sever uriah affec chava indiv idual s, abnor mal ultra sound findi ngs may inclu de conge nital joint contr actur es, polyh ydram nios, and decre ased movem ent. (Ela lira, PMID: [id number]). Treat ment is suppo rtive . Targe chava thera pies may be avail able for some indiv idual s. Appro ximat uriah 94% of affec chava indiv idual s have 0 copie s of the SMN1 gene; in these indiv idual s, an incre ase in the numbe r of copie s of the SMN2 gene corre lates with reduc ed disea se sever ity (Lisa Dodd, PMID: [id number]). Indiv idual s with one copy of the SMN1 gene are predi cted to be carolina ers of SMA; those with two or more copie s have a reduc ed carolina er risk. For indiv idual s with two copie s of the SMN1 gene, the prese nce or absen ce of the varia nt c.*3+ 80T>G corre lates with an incre ased or decre ased risk, respe ctive ly, of being a silen t carolina er (2+0) . Not Available [facility] ([facility]) [address], [place], [address], 10/23/2024 07:17:53 10/10/19 25 10/16/2024 SPINA L MUSCU LAR ATROP HY (SMA) comments COMMEN T This inter preta tion is based on the clini nabor infor olivier n provi ded and the curre nt under stand ing of the molec ular marquez ics of the disor miri(s ) teste d. Infor olivier ruiz about the disor miri(s ) teste d is avail able at https :[email or web address] mens ea .[email or web address] orp.c om. Not Available [facility] ([facility]) [address], [place], [address], 10/23/2024 07:17:53 10/10/1910/16/2024 SPINA L MUSCU LAR ATROP HY (SMA) methods/limi tations COMMEN T Spina l muscu lar atrop hy: The copy numbe r of SMN1 exon 7 is asses sed relat nery to inter nal stand mercedes refer ence genes by quant itati ve polym erase chain react ion (qPCR ). A mathe matic al algor ithm calcu lates 0, 1, 2 and 3 copie s with stati stica l confi dence . In speci mens and speci mens with 0 or 1 copie s, the prime r and probe jesse ng sites are seque nced to rule out varia nts that could inter fere with copy numbe r navin sis. SMN2 copy numbe r is asses sed by digit al dropl et PCR navin sis relat nery to an inter nal stand mercedes refer ence gene in sampl es with no copie s of SMN1. For carolina er scree marissa, when two copie s of SMN1 are detec chava, allel ic discr imina tion qPCR targe ting c.*3+ 80T>G in SMN1 is perfo rmed. Limit ation s: Techn ologi es used do not detec t germl ine mosai cism and do not rule out the prese nce of large chrom osoma l aberr ation s inclu ding rearr angem ents and gene fusio ns, or varia nts in regio ns or genes not inclu ded in this test, or possi ble inter /intr ageni c inter actio ns betwe en varia nts, or repea t expan sions . Varia nt class ifica tion and/o r inter preta tion may aguirre e over time if more infor matio n becom es avail able. False posit nery or false negat nery resul ts may occur for reaso ns that inclu de: rare marquez ic varia nts, sex chrom osome abnor malit ies, pseud ogene inter feren ce, blood trans fusio ns, bone marro w trans plant ation , somat ic or tissu e-spe cific mosai cism, misla beled sampl es, or elfego eous repre senta tion of famil y relat ionsh ips. This test was devel oped and its perfo rmanc e darren cteri stics deter mined by [employer]. It has not been clear ed or appro ronny by the Food and Drug Admin istra tion. [employer] is a subsi diary of [employer], using the brand [facility]. Not Available [facility] ([facility]) [address], [place], [address], 10/23/2024 07:17:53 10/10/19 25 10/16/2024 SPINA L MUSCU LAR ATROP HY (SMA) information table COMMEN T Spina l muscu lar atrop hy risk reduc tions for indiv idual s with no famil y histo ry Popul ati Detec t Pre-t e Post- kush Post- te on ion st t risk st rate carolina e of risk (Copy r being a of numbe r risk carolina er being + with 2 a SNP) copie s carolina er with 3 copie s POSIT NERY NEGAT NERY for the for the c.*3+ 80T c.*3+ 80T >G SNP >G SNP Anna catalan 92.8% 1 in High 1 in 1 in i 67 risk 918 5400 Jewis h 93.6% 1 in High 1 in 1 in 59 risk 907 5600 Black 90.3% 1 in 1 in 34 1 in 1 in 72 375 4200 Hispa nelly 92.6% 1 in 1 in 1 in 1 in 68 007 340 9280 White 95.0% 1 in 1 in 29 1 in 1 in 47 921 5600 Mixed For or couns e other ling ethni c purpo s backg rou es, nd consi d er using the ethni c backg r ound with the most conse r vativ e risk estim a kush. inclu christine carolina ers who are silen t carolina ers (2+0) and carolina ers with a patho gen ic varia nt not detec chava in this assay Reese. PMID [id number] ; Charbel. PMID 86430 250 ; Sugar man . PMID [id number] 307 Not Available [facility] ([facility]) [address], [place], [address], 10/23/2024 07:17:53 10/10/1910/16/2024 SPINA L MUSCU LAR ATROP HY (SMA) references COMMEN T Brenda herman JL, Manuel encarnacion C, Dulce Maria bruno A et al. Adden dum: Techn ical stand ards and guide lines for spina l muscu lar atrop hy testi ng. [facility] Med 23, 7630 (2020 ). [Adde ndum to PMID: [id number]] Prior TW, Felicia ME, Karen Enriquez. Spina l Muscu lar Atrop hy. 1999Oct 21 (Upda chava 2019Aug 26). In: Jos MP, Shayna reyes HH, Robert CHE, et al., jair willis. GeneR candelario guerra(R) [Inte rnet] . PMID: [id number] Not Available [facility] ([facility]) [address], [place], [address], 10/23/2024 07:17:53 10/10/1910/16/2024 SPINA L MUSCU LAR ATROP HY (SMA) director review/relea se COMMEN T [place] nent Type Perfo rmed At Labor atory Direc tor Techn ical Esote marissa Marquez ic Brook Warner, PhD, compo nent, [facility], [facility] proce ssing [address] , [place], [address] Techn ical Esote marissa Marquez nupur Warner, PhD, compo nent, [employer], [facility] navin sis [address] , [place], [address] Profe ssion al Esote marissa Marquez nupur Warner, PhD, compo nent [facility], [facility] [address] [place], [address] Elect celso harvey relea sed by Ramona Martino, PhD, [facility] Not Available [facility] ([facility]) [address] [place], [address], 10/23/2024 07:17:53 10/10/19 25 10/16/2024 SPINA L MUSCU LAR ATROP HY (SMA) pdf . Not Available [facility] ([facility]) [address] [place], [address], 10/23/2024 07:17:53 10/10/19 25 10/11/2024 61140 9 10 DRUG- BUND amphetamines , urine NEGATI VE NG/mL cutoff =1000 Amphe tamin e test inclu christine Amphe tamin e and Metha mphet amine . Not Available [facility] ([facility]) [address] [place], [address], 10/23/2024 07:17:54 10/10/19 25 10/11/2024 79557 9 10 DRUG- BUND barbiturates NEGATI VE NG/mL cutoff =200 Not Available [facility] ([facility]) [address] [place], [address], 10/23/2024 07:17:54 10/10/19 25 10/11/2024 [id number] 9 10 DRUG- BUND benzodiazepi graciela NEGATI VE NG/mL cutoff =200 Not Available [facility] ([facility]) [address] [place], [address], 10/23/2024 07:17:54 10/10/19 25 10/11/2024 [id number] 9 10 DRUG- BUND cannabinoid SEE FINAL RESULT S Not Available [facility] ([facility]) [address] [place], [address], 10/23/2024 07:17:54 10/10/19 25 10/11/2024 [id number] 9 10 DRUG- BUND cocaine (metab.) NEGATI VE NG/mL cutoff =300 Not Available [facility] ([facility]) [address] [place], [address], 10/23/2024 07:17:54 10/10/19 25 10/11/2024 [id number] 9 10 DRUG- BUND methaqualone NEGATI VE NG/mL cutoff =300 Not Available [facility] ([facility]) [address] [place], [address], 10/23/2024 07:17:54 10/10/19 25 10/11/2024 15320 9 10 DRUG- BUND opiates NEGATI VE NG/mL cutoff =2000 Opiat e test inclu christine Codei ne and Morph ine only. Not Available [facility] ([facility]) [address], [place], [address], 10/23/2024 07:17:54 10/10/19 25 10/11/2024 04687 9 10 DRUG- BUND phencyclidin e NEGATI VE NG/mL cutoff =25 Not Available [facility] ([facility]) [address] [place], [address], 10/23/2024 07:17:54 10/10/19 25 10/11/2024 38210 9 10 DRUG- BUND methadone screen, urine NEGATI VE NG/mL cutoff =300 Not Available [facility] ([facility]) [address] [place], [address], 10/23/2024 07:17:54 10/10/19 25 10/11/2024 85383 9 10 DRUG- BUND propoxyphene , urine NEGATI VE NG/mL cutoff =300 Eff ectiv e November 25, 2024, this test will be disco ntinu ed. Pleas e conta ct your [facility] repre senta tive for sugge sted repla cemen t test optio ns. Not Available [facility] ([facility]) [address], [place], [address], 10/23/2024 07:17:54 10/10/19 25 10/14/2024 CANNA BINOI D CONFI RMATI ON, UR cannabinoid Positi ve cutoff =50 abnormal Not Available [facility] ([facility]) [address], [place], [address], 10/23/2024 07:17:56 10/10/19 25 10/14/2024 CANNA BINOI D CONFI RMATI ON, UR carboxy THC conf, MS, ur 42 NG/mL cutoff =15 Not Available [facility] ([facility]) [address], [place], [address], 10/23/2024 07:17:56 10/10/19 25 10/12/2024 RESUL T result 1 Commen t Mixed uroge nital michelle 10,00 0-25, 000 colon y formi ng units per mL Not Available [facility] ([facility]) [address] [place], [address], 10/23/2024 07:17:56 10/10/19 25 10/11/2024 VARIC SHARRI- ZOSTE R V AB, IGG varicella zoster IgG REACTI VE nonrea ctive Ple ase note refer ence inter javy aguirre e A React nery resul t is consi dered evide nce of immun ity to VZV. React nery indic ates that VZV IgG was detec chava consi stent with previ ous infec tion and/o r vacci natio n. A Non React nery resul t indic ates that VZV IgG was not detec chava sugge sting that immun ity has not been acqui red. Not Available [facility] ([facility]) [address], [place], [address], 10/23/2024 07:17:57 10/10/19 25 10/10/2024 edinb urgh postn atal depre ssion scale * Score 7 Not Available In-Office Order Internal Use Only DO Not Attach Compendium DO Not Attach Compendium, Do Not Delete/merge, 10/10/2024 13:48:04 10/10/19 25 10/10/2024 pregn shiva test, urine HCG positi ve Not Available In-Office Order Internal Use Only DO Not Attach Compendium DO Not Attach Compendium, Do Not Delete/merge, 10/10/2024 12:23:59 10/10/19 25 10/10/2024 urina lysis , dipst ick Leukocytes Negati ve Not Available In-Office Order Internal Use Only DO Not Attach Compendium DO Not Attach Compendium, Do Not Delete/merge, 10/10/2024 12:15:15 10/10/19 25 10/10/2024 urina lysis , dipst ick Nitrite negati ve Not Available In-Office Order Internal Use Only DO Not Attach Compendium DO Not Attach Compendium, Do Not Delete/merge, 10/10/2024 12:15:15 10/10/19 25 10/10/2024 urina lysis , dipst ick Urobilinogen .2 Not Available In-Of fice Order Internal Use Only DO Not Attach Compendium DO Not Attach Compendium, Do Not Delete/merge, 10/10/2024 12:15:15 10/10/19 25 10/10/2024 urina lysis , dipst ick Protein Negati ve Not Available In-Office Order Internal Use Only DO Not Attach Compendium DO Not Attach Compendium, Do Not Delete/merge, 10/10/2024 12:15:15 10/10/19 25 10/10/2024 urina lysis , dipst ick pH 6.5 Not Available In-Office Order Internal Use Only DO Not Attach Compendium DO Not Attach Compendium, Do Not Delete/merge, 10/10/2024 12:15:15 10/10/1910/10/2024 urina lysis , dipst ick Blood Negati ve Not Available In-Office Order Internal Use Only DO Not Attach Compendium DO Not Attach Compendium, Do Not Delete/merge, 10/10/2024 12:15:15 10/10/1910/10/2024 urina lysis , dipst ick Specific [place] 1.020 Not Available In-Off ice Order Internal Use Only DO Not Attach Compendium DO Not Attach Compendium, Do Not Delete/merge, 10/10/2024 12:15:15 10/10/1910/10/2024 urina lysis , dipst ick Ketone Negati ve Not Available In-Office Order Internal Use Only DO Not Attach Compendium DO Not Attach Compendium, Do Not Delete/merge, 10/10/2024 12:15:15 10/10/19 25 10/10/2024 urina lysis , dipst ick Bilirubin Negati ve Not Available In-Office Order Internal Use Only DO Not Attach Compendium DO Not Attach Compendium, Do Not Delete/merge, 10/10/2024 12:15:15 10/10/1910/10/2024 urina lysis , dipst ick Glucose Negati ve Not Available In-Office Order Internal Use Only DO Not Attach Compendium DO Not Attach Compendium, Do Not Delete/merge, 10/10/2024 12:15:15 10/10/1910/10/2024 urina lysis , dipst ick Appearance Clear Not Available In-Offi ce Order Internal Use Only DO Not Attach Compendium DO Not Attach Compendium, Do Not Delete/merge, 10/10/2024 12:15:15 10/10/1910/10/2024 urina lysis , dipst ick Color Yellow Not Available In-Office Order Internal Use Only DO Not Attach Compendium DO Not Attach Compendium, Do Not Delete/merge, 10/10/2024 12:15:15 11/12/1911/1411/14/2024 MATER NIT21 PLUS CORE pdf . Not Available [facility] ([facility]) [address], [place], [address], 11/15/2024 07:16:07 11/12/19 25 11/15/2024 MATER NIT21 PLUS CORE gestation SINGLE TON Not Available [facility] ([facility]) [address], [place], [address], 11/15/2024 07:16:07 11/12/19 25 11/15/2024 MATER NIT21 PLUS CORE fraction 19% Not Available [facility] ([facility]) [address], [place], [address], 11/15/2024 07:16:07 11/12/19 25 11/15/2024 MATER NIT21 PLUS CORE gestational age > or = 9W: YES Not Available [facility] ([facility]) [address], [place], [address], 11/15/2024 07:16:07 11/12/19 25 11/15/2024 MATER NIT21 PLUS CORE test result NEGATI VE Not Available [facility] ([facility]) [address], [place], [address], 11/15/2024 07:16:07 11/12/19 25 11/15/2024 MATER NIT21 PLUS CORE slab off mill tender comments SOWMYA [place] speci men showe d an expec chava repre senta tion of chrom osome 21, 18 and 13 mater ial. Clini nabor corre latio n is sugge sted. Not Available [facility] ([facility]) [address] [place], [address], 11/15/2024 07:16:07 11/12/19 25 11/15/2024 MATER NIT21 PLUS CORE approved by SOWMYA cruz MD, PhD, [facility] tor, [place] nom Labor atori es Not Available [facility] ([facility]) [address] [place], [address], 11/15/2024 07:16:07 11/12/19 25 11/15/2024 MATER NIT21 PLUS CORE trisomy 21 (down syndrome) NEGATI VE Not Available [facility] ([facility]) [address] [place], [address], 11/15/2024 07:16:07 11/12/19 25 11/15/2024 MATER NIT21 PLUS CORE trisomy 18 (mensah syndrome) NEGATI VE Not Available [facility] ([facility]) [address] [place], [address], 11/15/2024 07:16:07 11/12/19 25 11/15/2024 MATER NIT21 PLUS CORE trisomy 13 (patau syndrome) NEGATI VE Not Available [facility] ([facility]) [address] [place], [address], 11/15/2024 07:16:07 11/12/19 25 11/15/2024 MATER NIT21 PLUS CORE sex COMMEN T Consi stent with Femal e Not Available [facility] ([facility]) [address] [place], [address], 11/15/2024 07:16:07 11/12/19 25 11/15/2024 MATER NIT21 PLUS CORE negative predictive value NOTE The Negat nery Predi ctive Value (NPV) for triso my 21, 18, and 13 is great er than 99%. The NPV for SCA and ESS canno t be calcu lated as SCA and ESS are only repor chava when an abnor malit y is detec chava. Not Available [facility] ([facility]) [address] [place], [address], 11/15/2024 07:16:07 11/12/19 25 11/15/2024 MATER NIT21 PLUS CORE positive predictive value N/A Not Available [facility] ([facility]) [address] [place], [address], 11/15/2024 07:16:07 11/12/1911/15/2024 MATER NIT21 PLUS CORE about the test COMMEN T The Mater niT(R ) 21 PLUS labor atory -deve loped test (LDT) navin zes circu latin g cell- free DNA from a mater nal blood sampl e. This test is used for scree marissa purpo ses and not diagn ostic . Clini nabor corre latio n is recom edson d. Valid ation data on twin pregn ancie s is limit ed and the abili ty of this test to detec t aneup loidy in highe r multi ple gesta tions has not yet been valid ated. Not Available [facility] ([facility]) [address], [place], [address], 11/15/2024 07:16:07 11/12/1911/15/2024 MATER NIT21 PLUS CORE test method COMMEN T See Notes Circu latin g cell- free DNA was purif ied from the plasm a compo nent of mater nal blood . The extra cted DNA was then conve rted into a Lenda DNA veronica ry for aneup loidy navin sis of chrom osome s 21, 18, and 13 via next gener ation seque ncing .[1] Optio nal findi ngs based on the test order inclu de sex chrom osome aneup loidy (SCA) [2], and enhan diann seque ncing serie s (ESS) [3], which will only be repor chava on as an addit ional findi ng when an abnor malit y is detec chava. SCA testi ng inclu christine infor matio n on X and Y repre senta tion, while ESS testi ng inclu christine delet ions in selec chava regio ns (22q, 15q, 11q, 8q, 5p, 4p, 1p) and triso my of chrom osome s 16 and 22. Not Available [facility] ([facility]) [address], [place], [address], 11/15/2024 07:16:07 11/12/1911/15/2024 MATER NIT21 PLUS CORE performance COMMEN T The perfo rmanc e darren cteri stics of the Mater niT(R ) 21 PLUS labor atory -deve loped test (LDT) have been deter mined in a clini nabor valid ation study with pregn ant women at incre ased risk for chrom osoma l aneup loidy .[1-4 ] Not Available [facility] ([facility]) [address], [place], [address], 11/15/2024 07:16:07 11/12/1911/15/2024 MATER NIT21 PLUS CORE performance characterist ics NOTE ----- ----- ----- ----- ----- ----- ----- ----- ----- ----- ----- ---- ! Sex ! Accur acy: 99.4% ! !---- ----- ----- ----- ----- ----- ----- ----- ----- ----- ----- ---! ! Karma n (trip shirley syndr ome) ! Est. Sens# ! Est. Spec ! !---- ----- ----- ----- ----- ----- ----- ----- ----- ----- ----- ---! ! Myrna godinez 21 (Rehan Syndr ome) ! 99.1% ! 99.9% ! !---- ----- ----- ----- ----- ----- ----- ----- ----- ----- ----- ---! ! Myrna godinez 18 (Veronica mcgregor Syndr ome) ! >99.9 % ! 99.6% ! !---- ----- ----- ----- ----- ----- ----- ----- ----- ----- ----- ---! ! Almaso my 11 (Pata u Syndr ome) ! 91.7% ! 99.7% ! !---- ----- ----- ----- ----- ----- ----- ----- ----- ----- ----- ---! ! Sex Chrom osome Aneup loidi es## ! 96.2% ! 99.7% ! !---- ----- ----- ----- ----- ----- ----- ----- ----- ----- ----- ---! * As repor chava in ISCA datab ase nstd3 7 [http [email or web address] [email or web address] [email or web address] [email or web address]/ dbvar /stud ies/n std37 / ] # Estim ated Sensi tivit y. Sensi tivit y estim ated acros s the obser ronny size distr ibuti on of each syndr ome [per ISCA datab ase nstd3 7] and acros s the range of fract ions obser ronny in routi ne clini nabor NIPT. Actua l sensi tivit y can also be influ enced by other facto rs such as the size of the event , total seque nce count s, ampli ficat ion bias, or seque nce bias. ## Singl eton gesta tion only. Not Available [facility] ([facility]) [address], [place], [address], 11/15/2024 07:16:07 11/12/19 25 11/15/2024 MATER NIT21 PLUS CORE limitations of the test COMMEN T While the resul ts of these tests are highl y relia ble, disco rdant resul ts, inclu ding inacc urate sex predi ction , may occur due to place ntal, mater nal, or mosai cism or neopl asm; vanis ciarra twin; prior mater nal organ trans plant ; or other cause s. These tests are scree marissa tests and not diagn ostic ; they do not repla ce the accur acy and preci drew of prena candace diagn osis with CVS or amnio cente sis. A patie nt with a posit nery test resul t shoul d be refer red for marquez ic couns eling and offer ed invas nery prena candace diagn osis for confi rmati on of test resul ts.[5 ] The resul ts of this testi ng, inclu ding the benef its and limit ation s, shoul d be discu ssed with a quali fied healt hcagarry provi miri. Pregn shiva manag ement decis ions, inclu ding termi natio n of the pregn shiva, shoul d not be based on the resul ts of these tests alone . The healt ashwin provi miri is respo nsibl e for the use of this infor matio n in the manag ement of their patie nt. Sex chrom osoma l aneup loidi es are not repor table for known multi ple gesta tions . A negat nrey resul t does not ensur e an unaff ected pregn shiva nor does it exclu de the possi bilit y of other chrom osoma l abnor malit ies or defec ts which are not a part of these tests . An uninf ormat nery resul t may be repor chava, the cause s of which may inclu de, but are not limit ed to, insuf ficie nt seque ncing cover age, noise or artif acts in the regio n, ampli ficat ion or seque ncing bias, or insuf ficie nt fract ion. These tests are not inten ded to ident foster pregn ancie s at risk for neura l tube defec ts or ventr al wall defec ts. Testi ng for whole chrom osome abnor malit ies (incl uding sex chrom osome s) and for subch romos omal abnor malit ies could lead to the poten tial disco very of both and mater nal genom ic abnor malit ies that could have major , minor , or no, clini nabor signi fican ce. Evalu ating the signi fican ce of a posit nery or a non-r eport able resul t may invol ve both invas nery testi ng and addit ional studi es on the mothe r. Such inves tigat ions may lead to a diagn osis of mater nal chrom osoma l or subch romos omal abnor malit ies, which on occas ion may be assoc iated with benig n or malig nant mater nal neopl asms. These tests may not accur ately ident foster tripl oidy, tarik diann rearr angem ents, or the preci se locat ion of subch romos omal dupli catio ns or delet ions; these may be detec chava by prena candace diagn osis with CVS or amnio cente sis. The abili ty to repor t resul ts may be impac chava by mater nal BMI, mater nal weigh t, mater nal syste shu lupus eryth emato gladis (SLE) and/o r by certa in pharm aceut ical agent s such as low molec ular weigh t hepar in (for examp le: Loven ox(R) , Xapar in(R) , Clexa ne(R) and Fragm in(R) ). Not Available [facility] ([facility]) [address], [place], [address], 11/15/2024 07:16:07 11/12/19 25 11/15/2024 MATER NIT21 PLUS CORE note COMMEN T See Notes [facility] is a subsi diary of Labor atory Corpo ratio n of Ameri ca Holdi ngs, using the brand White [employer]. This test was devel oped and its perfo rmanc e darren cteri stics deter mined by [facility]. It has not been clear ed or appro ronny by the Food and Drug Admin istra tion. This labor atory is certi fied under the Clini nabor Labor atory Impro vemen t Amend ments (CLIA ) as quali fied to perfo rm high compl exity clini nabor labor atory testi ng and accre dited by the Trevor layton of Harjinder can Patho logis ts (CAP) . If there is futur e clini nabor need for addin g Mater niT GENOM E testi ng, this speci men will be avail able until term. [facility] sampl es will not be retai phuc beyon d 60 days. [facility] patie nts will have to send a new sampl e for re-se quenc ing ([facility] Test Code: 53344 4). Not Available [facility] ([facility]) [address], [place], [address], 11/15/2024 07:16:07 11/12/1911/15/2024 MATER NIT21 PLUS CORE references COMMEN T 1. Rommel LAYTON, et al. Marquez Med. 2012; 14(3) :296- 305. 2. Navi MCGEE, et al. Prena t Diag. 2013; 33(6) :591- 597. 3. Kenroy C, et al. Clin Chem. 2015 Nov;6 1(4): 608-6 16. 4. Rommel LAYTON, et al. Marquez Med. 2011; 13(11 ):913 -920. 5. ACOG/ SMFM Pract ice Bulle tin No. 226, May 2020. Not Available [facility] ([facility]) [address], [place], [address], 11/15/2024 07:16:07 11/12/1911/11/2024 urina lysis , dipst ick Leukocytes Negati ve Not Available In-Office Order Internal Use Only DO Not Attach Compendium DO Not Attach Compendium, Do Not Delete/merge, [id number] 11/08/2024 08:27:09 11/12/19 25 11/11/2024 urina lysis , dipst ick Nitrite negati ve Not Available In-Office Order Internal Use Only DO Not Attach Compendium DO Not Attach Compendium, Do Not Delete/merge, [id number] 11/08/2024 08:27:09 11/12/1911/11/2024 urina lysis , dipst ick Urobilinogen .2 Not Available In-Of fice Order Internal Use Only DO Not Attach Compendium DO Not Attach Compendium, Do Not Delete/merge, 11/08/2024 08:27:09 11/12/19 25 11/11/2024 urina lysis , dipst ick Protein Negati ve Not Available In-Office Order Internal Use Only DO Not Attach Compendium DO Not Attach Compendium, Do Not Delete/merge, 11/08/2024 08:27:09 11/12/19 25 11/11/2024 urina lysis , dipst ick pH 6.5 Not Available In-Office Order Internal Use Only DO Not Attach Compendium DO Not Attach Compendium, Do Not Delete/merge, 11/08/2024 08:27:09 11/12/19 25 11/11/2024 urina lysis , dipst ick Blood Negati ve Not Available In-Office Order Internal Use Only DO Not Attach Compendium DO Not Attach Compendium, Do Not Delete/merge, 11/08/2024 08:27:09 11/12/19 25 11/11/2024 urina lysis , dipst ick Specific [place] 1.015 Not Available In-Off ice Order Internal Use Only DO Not Attach Compendium DO Not Attach Compendium, Do Not Delete/merge, 11/08/2024 08:27:09 11/12/19 25 11/11/2024 urina lysis , dipst ick Ketone Negati ve Not Available In-Office Order Internal Use Only DO Not Attach Compendium DO Not Attach Compendium, Do Not Delete/merge, 11/08/2024 08:27:09 11/12/19 25 11/11/2024 urina lysis , dipst ick Bilirubin Negati ve Not Available In-Office Order Internal Use Only DO Not Attach Compendium DO Not Attach Compendium, Do Not Delete/merge, 11/08/2024 08:27:09 11/12/19 25 11/11/2024 urina lysis , dipst ick Glucose Negati ve Not Available In-Office Order Internal Use Only DO Not Attach Compendium DO Not Attach Compendium, Do Not Delete/merge, 11/08/2024 08:27:09 11/12/19 25 11/11/2024 urina lysis , dipst ick Appearance Slight ly Cloudy Not Available In-Office Order Internal Use Only DO Not Attach Compendium DO Not Attach Compendium, Do Not Delete/merge, [id number] 11/08/2024 08:27:09 11/12/19 25 11/11/2024 urina lysis , dipst ick Color Yellow Not Available In-Office Order Internal Use Only DO Not Attach Compendium DO Not Attach Compendium, Do Not Delete/merge, [id number] 11/08/2024 08:27:09 11/05/19 23 11/04/2022 US, obste tric, mater nal evalu ation + anato my No observ ation record ed. [address] [place], [address], 11/04/2022 17:41:38 11/21/19 25 11/14/2024 US, obste tric, 2nd trime ster No observ ation record ed. [email or web address] [address] [place], [address], 11/21/2024 10:08:48 Result Notes None recorded. Problems Name Problem SNOMED Code Status Onset Date Resolution Date Notes Provider Name and Address Organization Details Recorded Time Pregnanc y 37558033 Completed 202111/08/2022 TARA Sánchez, [facility] 5 12:18:14 Alessandrajuan a user 458699981 Completed Encourag e cessatio n TARA Sánchez, [place] - [facility] 3 16:17:25 Rubella non-immu ne 607137661 Completed Offer MMR after delivery TARA Sánchez, [place] 3 16:17:25 Past pregnanc y history of prematur e delivery 845460485 Active 2021 Induced secondar y to oligohyd ramnios? TARA Sánchez, [facility] 3 16:17:25 Past pregnanc y history of prematur e delivery 386675091 Completed 2021 Induced secondar y to oligohyd ramnios? Chanell TARA Hernandez, [facility] 3 16:17:25 Tobacco user 800178277 Completed Chanell TARA Hernandez, [facility] 3 16:17:25 Depressi ve disorder 97252512 Completed TARA Sánchez, [facility] 3 16:17:25 Anxiety disorder 884819272 Completed Chanell TARA Hernandez, [facility] 3 16:17:25 Seizure disorder 915566702 Completed Pt states the seizures stopped after removal of Nexplano n TARA Sánchez, [facility] 3 16:17:24 History of alcoholi sm 088640917 Completed Chanell TARA Hernandez, [facility] 3 16:17:25 Group B Streptoc occus carrier [id number] 03 Completed 2022 TARA Sánchez, [facility] 3 16:17:25 Group B Streptoc occus carrier 27574409652 03 Active 2022 TARA Sánchez, [facility] 3 16:17:25 Pregnanc y 40102212 Active 2024 TARA Sánchez, [facility] 5 12:18:13 Rubella non-immu ne 001600852 Active Alyssa Douglas MD Attn: Chris stevenson,[address] [place], [address], [facility] 5 15:00:32 Marijuan a user 720957894 Active Alyssa Douglas MD Attn: Chris stevenson,[address] [place], [address], [facility] 5 15:00:39 Problem Notes None recorded. Procedures Surgical History Date Name Laterality Status Provider Name and Address Organization Details Recorded Time 01/25/2024 Date of Last Pap Smear completed Maritza Park RN [facility] 01/30/2024 16:16:52 Imaging Results Imaging Date Name Status LastModified by Organiz ation Details LastModified Time 11/04/2022 US, obstetric, maternal evaluation + anatomy completed [address] [place], [address], 11/04/2022 17:41:38 11/14/2024 US, obstetric, 2nd trimester completed [email or web address] [address] [place], [address], 11/21/2024 10:08:48 Procedure Notes None recorded. Medical Equipment None Reported. Allergies No known drug allergies Medications Name Sig Start Date Stop Date Status Note LastModified by Organization Details LastModified Time amoxicillin 500 mg capsule TAKE 1 CAPSULE BY MOUTH THREE TIMES DAILY FOR 10 DAYS 10/03 completed Not Available Not Available Not Available clindamycin HCl 300 mg capsule TAKE 1 CAPSULE BY MOUTH EVERY 8 HOURS 01/16 completed Not Available Not Available Not Available cetirizine 10 mg tablet 10/10 completed Not Available Not Available Not Available penicillin V potassium 500 mg tablet TAKE 1 TABLET BY MOUTH THREE TIMES DAILY FOR 7 DAYS 10/10 completed Not Available Not Available Not Available sulfamethoxa zole 800 mg-trimethop rim 160 mg tablet TAKE 1 TABLET BY MOUTH EVERY 12 HOURS FOR 14 DAYS 06/09 completed Not Available Not Available Not Available cephalexin 500 mg capsule TAKE 1 CAPSULE BY MOUTH EVERY 6 HOURS FOR 14 DAYS 06/09 completed Not Available Not Available Not Available docusate sodium 100 mg capsule TAKE 1 CAPSULE BY MOUTH TWICE DAILY 01/16 completed Not Available Not Available Not Available ibuprofen 600 mg tablet TAKE 1 TABLET BY MOUTH EVERY 6 HOURS NEEDED FOR PAIN 10/10 completed Not Available Not Available Not Available amoxicillin 875 mg-potassium clavulanate 125 mg tablet TAKE 1 TABLET BY MOUTH EVERY 12 HOURS FOR 10 DAYS 01/16 completed Not Available Not Available Not Available chlorhexidin e gluconate 0.12 % mouthwash SWISH AND SPIT 15 ML IN MOUTH TWICE DAILY 11/11 completed Not Available Not Available Not Available active Not Available Not Avai lable Not Available quetiapine 50 mg tablet 10/10 completed Not Available Not Available Not Available FeroSul 325 mg (65 mg iron) tablet TAKE 1 TABLET BY MOUTH ONCE DAILY 01/16 completed Not Available Not Available Not Available Pre-Misa Multivitamin s with Minerals 27 mg-1 mg-300 mg capsule Take 1 capsule every day by oral route. 01/16 completed Not Available Not Available Not Available Loryna (28) 3 mg-0.02 mg tablet TAKE 1 TABLET BY MOUTH ONCE DAILY 10/10 completed Not Available Not Available Not Available Adult Multivitamin Gummies 10/10 completed Not Available Not Available Not Available Vitals Date Recorded Body height Body mass index (BMI) Systolic blood pressure Diastolic blood pressure Provider Name and Address Organization Details Last Updated DateTime 11/01/2022 165.1 cm 25.1 kg/m2 108 mm[Hg] 70 mm[Hg] Chanell Hernandez MA [facility] 11/01/2022 10:56:31 Date Recorded Body weight Provider Name an d Address Organization Details Last Updated DateTime 11/01/2022 52545.932344 g Yousif Arce Attn: Accounting,[address] [place], [address], [facility] 11/01/2022 15:11:53 Date Recorded Body height Body mass index (BMI) Body weight Systolic blood pressure Diastolic blood pressure Provider Name and Address Organization Details Last Updated DateTime 11/30/2022 165.1 cm 22.9 kg/m2 23619.59 1638 g 108 mm[Hg] 71 mm[Hg] Chanell Hernandez MA [facility] 3 16:16:29 Date Recorded Body height Body mass index (BMI) Body weight Systolic blood pressure Diastolic blood pressure Provider Name and Address Organization Details Last Updated DateTime 01/17/2024 165.1 cm 18.6 kg/m2 55037.63 g 116 mm[Hg] 80 mm[Hg] Chanell Hernandez MA [facility] 4 14:31:07 Date Recorded Body height Body mass index (BMI) Body weight Systolic blood pressure Diastolic blood pressure Provider Name and Address Organization Details Last Updated DateTime 01/25/2024 165.1 cm 19.1 kg/m2 77268.4 g 109 mm[Hg] 73 mm[Hg] Chanell HernandezTARA [facility] 4 12:10:02 Date Recorded Body height Body mass index (BMI) Body weight Heart rate Systolic blood pressure Diastolic blood pressure Provider Name and Address Organization Details Last Updated DateTime 5 165.1 cm 21.8 kg/m2 19655.0 3 g 76 /min 115 mm[Hg] 81 mm[Hg] Cierra ruiz MA [facility] 5 12:08:54 Date Recorded Body height Body mass index (BMI) Body weight Heart rate Systolic blood pressure Diastolic blood pressure Provider Name and Address Organization Details Last Updated DateTime 5 165.1 cm 21.8 kg/m2 65733.6 g 93 /min 109 mm[Hg] 76 mm[Hg] Cierra ruiz MA [facility] 5 10:19:51 Social History Question Answer Notes LastModified by Organizat ion Details LastModified Time Tobacco Smoking Status Former Smoker Cierra Drew MA null, [facility] 10/10/2024 12:13:13 Do You Have An Advance Directive? No Information not available 06/09/2022 What Is Your Level Of Alcohol Consumption? None Information not available 10/10/2024 How Many Years Have You Consumed Alcohol? 16 Information not available 06/09/2022 Are You Blind Or Do You Have Difficulty Seeing? No Information not available 05/26/2022 Is Blood Transfusion Acceptable In An Emergency? Yes Information not available 06/09/2022 What Is Your Level Of Caffeine Consumption? None Information not available 05/26/2022 In The 14 Days Before Symptom Onset, Have You Had Close Contact With A Laboratory-confir med COVID-19 While That Case Was Ill? No Information not available 06/09/2022 In The 14 Days Before Symptom Onset, Have You Had Close Contact With A Person Who Is Under Investigation For COVID-19 While That Person Was Ill? No Information not available 06/09/2022 Have You Been To An Area Known To Be High Risk For COVID-19? No Information not available 05/26/2022 Are You Currently Employed? No Information not available 05/26/2022 Are You Deaf Or Do You Have Serious Difficulty Hearing? No Information not available 05/26/2022 What Type Of Diet Are You Following? REGULAR Information not available 05/26/2022 Which Illicit Or Recreational Drugs Have You Used? [place] Information not available 05/26/2022 Do You Or Have You Ever Used E-cigarettes Or Vape? Current User Of Electronic Cigarettes Information not available 10/10/2024 What Is The Highest Grade Or Level Of School You Have Completed Or The Highest Degree You Have Received? [id number] Information not available 05/26/2022 Have There Been Any Changes To Your Family Or Social Situation? No Information no t available 05/26/2022 Are There Any Guns Present In Your Home? No Information not available 05/26/2022 Which Of Your Hands Is Dominant? Right Information not available 05/26/2022 How Many Years Have You Used Illicit Or Recreational Drugs? 16 Information not available 06/09/2022 What Was The Date Of Your Most Recent Tobacco Screening? 10/10/2024 Information not available 10/10/2024 How Many Children Do You Have? 1 Information not available 05/26/2022 Do You Have Any Pets? Yes Information not available 05/26/2022 What Is Your Relationship Status? Single Information not available 05/26/2022 Do You Use Your Seat Belt Or Car Seat Routinely? Yes Information not available 05/26/2022 Are You Sexually Active? Yes Information not available 05/26/2022 Do You Have Smoke And Carbon Monoxide Detectors In Your Home? Yes Information not available 05/26/2022 At What Age Did You Start Smoking Tobacco? 13 Information not available 05/26/2022 Are You Passively Exposed To Smoke? Yes Information no t available 06/09/2022 Do You Or Have You Ever Used Smokeless Tobacco? Never Used Smokeless Tobacco Information not available 10/10/2024 How Much Tobacco Do You Smoke? 1 PPW Information not available 05/26/2022 Do You Participate In Social Media? Yes Information not available 05/26/2022 Do You Feel Stressed (tense, Restless, Nervous, Or Anxious, Or Unable To Sleep At Night)? [id number] Information not available 05/26/2022 Do You Use Any Illicit Or Recreational Drugs? Yes Information not available 05/26/2022 Do You Use Sunscreen Routinely? Yes Information not available 05/26/2022 Has Tobacco Cessation Counseling Been Provided? Yes Information not available 01/17/2024 On What Date Was Tobacco Cessation Counseling Provided? 10/10/2024 Information not available 10/10/2024 Have You Used IV Drugs? No Information not available 05/26/2022 Are You Currently In School? No Information not available 05/26/2022 Do You Or Have You Ever Used Any Other Forms Of Tobacco Or Nicotine? Yes Information not available 10/10/2024 Sex: Female Functional Status Question Answer Note LastModified by Organization D etails LastModified Time Are you able to care for yourself? Yes Information not available 05/26/2022 What is your exercise level? Moderate Information not available 05/26/2022 Mental Status None recorded. Family History Relationship Description Onset Age of this Age Resolved Age Notes LastModified by Organization Details LastModified Time Mother Alcohol abuse [email or web address] Not available 2021 16:57:32 Mother Myocardial infarction [email or web address] Not available 06/09 11:35:46 Father Hypertensive disorder [email or web address] Not available 2021 11:35:38 Maternal Grandmother Diabetes mellitus [email or web address] Not available 2021 11:36:03 Medical History Condition Response Anxiety Disorder Y Other Y Depression Y Heart Disease Y Gynecological History Statement/Question Response Abnormal Pap N Flow Light Date of LMP 01/19/2022 On BCP's at Conception? N STIs/STDs N HPV Vaccine Y Duration of Flow (days) 2 Age at Menarche 6 Current Control Method Age at First Child 18 Sexually Active? Y Menses Monthly N Date of Last Pap Smear 01/25/2024 Sexual Problems? N LMP Definite Desired Control Method BCPs Obstetrics History GPAL:G 5 P 1 1 2 2 Type Value Full Term 1 Induced 0 Spontaneous 2 Premature 1 Living 2 Total 5 Immunizations Vaccine Type Date Status Note Provider Name and Address Organization Details Recorded Time Tdap 2 cancelled patient objection Alyssa Douglas MD Attn: Accounting,[address] , [place], [address], [facility] 08/03/2022 12:47:22 Past Encounters Encounter ID Performer Location Encounter Start Date Encounter Closed Date Diagnosis/Indication Diagnosis SNOMED-CT Code Diagnosis ICD10 Code Diagnosis Note [id number] MD Prudencio Arce [address] [place], [place] [address] [address] 06/09/2022 11:02:20 06/14/2022 09:32:14 Routine care 105933090 Z34.82 Past pregn shiva history of premature delivery 318333551 Z87.51 --IOL secondary to oligohydra mnios [id number] MD Prudencio Arce 14 OB 4 [facility] Dr [address] [place], [place] [address] [address] 07/06/2022 14:01:22 07/07/2022 08:45:01 Routine care 635374290 Z34.82 Past pregn shiva history of premature delivery 560003079 Z87.51 --IOL secondary to oligohydra mnios Rubella non-immune 94291 4009 Z01.84 Marijuana user 161100608 F12.90 Constipation 96709061 K5 9.00 [id number] MD Prudencio Arce [address] Smith [address] [place] [address] 08/03/2022 10:58:55 08/04/2022 10:30:03 Routine care 599294672 Z34.82 Tobacco user 526164324 Z 72.0 --Encourag e cessation Seizure disorder 1624196 02 G40.909 --Pt states the seizures stopped after removal of Nexplanon Past pregn shiva history of premature delivery 075603780 Z87.51 --IOL secondary to oligohydra mnios Anxiety disorder 7251928 06 F41.9 --No medication Rubella non-immune 54241 4009 Z01.84 --Offer MMR after delivery Depressive disorder 3788 9007 F32.A --No medication Marijuana user 839085775 F12.90 --Encourag e cessation [id number] MD Prudencio Arce 14 OB 4 [facility] [address] [place] [address] 09/06/2022 11:59:52 09/07/2022 09:01:21 Routine care 163524834 Z34.82 Seizure disorder 1583889 02 G40.909 --Pt states the seizures stopped after removal of Nexplanon Tobacco user 928499139 Z 72.0 --Encourag e cessation History of alcoholism 16 9675399 F10.21 Past pregn shiva history of premature delivery 793349654 Z87.51 --IOL secondary to oligohydra mnios Anxiety disorder F41.9 --No medication Rubella non-immune 51169 4009 Z01.84 --Offer MMR after delivery Depressive disorder 3548 9007 F32.A --No medication Marijuana user 940246206 F12.90 --Encourag e cessation [id number] MD Prudencio Arce 14 OB 4 [facility] [address] [place] [address] 09/20/2022 11:40:27 09/21/2022 11:16:05 Routine care 392408106 Z34.82 Past pregn shiva history of premature delivery 088179164 Z87.51 --IOL secondary to oligohydra mnios Seizure disorder 0697801 02 G40.909 --Pt states the seizures stopped after removal of Nexplanon Rubella non-immune 59963 4009 Z01.84 --Offer MMR after delivery Tobacco user 121958837 Z 72.0 --Encourag e cessation History of alcoholism 16 4780326 F10.21 Depressive disorder 3548 9007 F32.A --No medication Anxiety disorder F41.9 --No medication Marijuana user 302574166 F12.90 --Encourag e cessation [id number] MD Prudencio Arce 14 OB 4 [facility] [address] [place] [id number] 10/03/2022 09:47:18 10/04/2022 12:36:48 Routine care 432582640 Z34.82 Past pregn shiva history of premature delivery 014600523 Z87.51 --IOL secondary to oligohydra mnios Seizure disorder 6580272 02 G40.909 --Pt states the seizures stopped after removal of Nexplanon Rubella non-immune 64570 4009 Z01.84 --Offer MMR after delivery Tobacco user 608633312 Z 72.0 --Encourag e cessation History of alcoholism 16 2396006 F10.21 Depressive disorder 3548 9007 F32.A --No medication Anxiety disorder F41.9 --No medication Marijuana user 870952131 F12.90 --Encourag e cessation [id number] MD Prudencio Arce 14 OB 4 [facility] Dr [address] [place] [address] 10/11/2022 15:47:01 10/26/2022 10:40:10 Routine care 322107408 Z34.82 Past pregn shiva history of premature delivery 533012490 Z87.51 --IOL secondary to oligohydra mnios Tobacco user 879134850 Z 72.0 --Encourag e cessation Seizure disorder 4925943 02 G40.909 --Pt states the seizures stopped after removal of Nexplanon History of alcoholism 16 5314834 F10.21 Anxiety disorder F41.9 --No medication Rubella non-immune 16379 4009 Z01.84 --Offer MMR after delivery [id number] MD Prudencio Arce 14 OB 4 [facility] Dr Smith [address] [place] [address] 10/19/2022 16:11:02 10/20/2022 10:17:13 Routine care 923655869 Z34.82 Past pregn shiva history of premature delivery 372836757 Z87.51 --IOL secondary to oligohydra mnios Tobacco user 744105747 Z 72.0 --Encourag e cessation Seizure disorder 7983843 02 G40.909 --Pt states the seizures stopped after removal of Nexplanon History of alcoholism 16 2066335 F10.21 Anxiety disorder F41.9 --No medication Rubella non-immune 15734 4009 Z01.84 --Offer MMR after delivery [id number] MD Prudencio Arce 14 OB 4 [facility] Dr [address] [place] [id number] 10/26/2022 15:46:47 11/15/2022 10:19:58 Routine care 219399142 Z34.82 Past pregn shiva history of premature delivery 995171829 Z87.51 --IOL secondary to oligohydra mnios Tobacco user 442826760 Z 72.0 --Encourag e cessation Seizure disorder 3521785 02 G40.909 --Pt states the seizures stopped after removal of Nexplanon History of alcoholism 16 8718431 F10.21 Anxiety disorder 0622327 06 F41.9 --No medication Rubella non-immune 44693 4009 Z01.84 --Offer MMR after delivery [id number] MD Prudencio Arce 14 4 [facility] [address] [place], [place] [address] [address] 11/01/2022 10:44:51 11/02/2022 09:58:19 Routine care 207250182 Z34.82 Past pregn shiva history of premature delivery 536594492 Z87.51 --IOL secondary to oligohydra mnios Tobacco user 033705526 Z 72.0 --Encourag e cessation Seizure disorder 2879189 02 G40.909 --Pt states the seizures stopped after removal of Nexplanon History of alcoholism 16 0309287 F10.21 Anxiety disorder 4760269 06 F41.9 --No medication Rubella non-immune 47344 4009 Z01.84 --Offer MMR after delivery Group B St reptococcus carrier 9062954466 103 Z22.330 --Treat with antibiotic s during labor [id number] MD Prudencio Arce [address] Smith [address] [place], [place] [address] [address] 11/30/2022 16:05:03 12/07/2022 12:43:30 Depression screening 567239080 Z13.31 --Pt states that she is not depressed and she declined offer for therapy or medical treatement . [id number] MD Prudencio Arce [address] Smith [address] [place], [place] [address] [address] 01/25/2024 11:58:23 02/05/2024 09:31:54 Gynecologic examination 77151331 Z01.419 --CBE and pap smear performed Vaginal discharge 336871 006 N89.8 [facility] 192175750 Z30.9 --Start OCPs Body mass index less than 20 403245245 Z68.1 [id number] MD Prudencio Arce 14 OB 4 [facility] Dr Smith [address] [place], [place] [address] [address] 10/10/2024 11:26:03 10/12/2024 09:17:30 Routine care 797990486 Z34.81 test positive 127046247 Z32.01 Depression screening 171 983343 Z13.31 [id number] MD Prudencio Arce 14 OB 4 [facility] Dr Smith [address] [place], [place] [address] [address] 11/11/2024 10:11:05 11/15/2024 10:31:42 Routine care 290192562 Z34.82 Marijuana user [id number] F12.90 --Encourag e cessation Rubella non-immune [id number] Z01.84 --Offer MMR after delivery Health Concerns Section Related Observation LastModified by Organization Detai ls LastModified Time None Recorded Concern Status LastModified by Organization Details LastModified Time None Recorded Advance Directives Directive N: Payers Encounter Date Sequence Insurance Name Policy Number Policy Asencio Covered Member ID Asencio Member ID Guarantor Name 11/01/2022 1 [facility] ON OR AFTER 02/25/21 (MEDICAID REPLACEMENT - HMO) Dominga Al [id number] Dominga Al 11/30/2022 1 [facility] ON OR AFTER 02/25/21 (MEDICAID REPLACEMENT - HMO) Dominga Al [id number] Dominga Al 01/25/2024 1 [facility] [employer] ON OR AFTER 02/25/21 (MEDICAID REPLACEMENT - HMO) Dominga Al [id number] Dominga Al 10/10/2024 1 [facility] ON OR AFTER 02/25/21 (MEDICAID REPLACEMENT - HMO) Dominga Al [id number] Dominga Al 11/11/2024 1 [facility] [employer] ON OR AFTER 02/25/21 (MEDICAID REPLACEMENT - HMO) Dominga Al [id number] Dominga Al Notes Date Note Type Note Provider Name and Address Organization Details Recorded Time 11/01/2022 text/html See molly w sheet. Alyssa Douglas MD Attn: [address] [place], [address], [place] [facility] 11/01/2022 15:14:18 11/30/2022 text/html Patient presents for assessment of post depression. She denies feeling down, blue or depressed and states that she has enough help at home. She denies any other complaints. Alyssa Douglas MD Attn: [address] [place], [address], [facility] - [facility] 12/05/2022 22:30:16 01/25/2024 text/html Annual GYNReport ed bypatient.Menstrual cycle:Normal menses Urinary symptoms:No hematuria; No incontinence Vulva:No genital lesion Vagina:Normal vaginal discharge Breast:No breast pain; No breast lump; No nipple discharge Current Contraception:Wants to discuss contraceptive options; Requests testing for sexually transmitted infections Sexual complaints:No sexual complaints; No pain during intercourse; Normal libido Menopausal Symptoms:No menopausal symptoms; Normal vaginal lubrication Psychological symptoms:No depression; No anxiety; No PMDD Alyssa Douglas MD Attn: [address] [place], [address], [facility] 02/03/2024 22:13:56 10/10/2024 text/html See molly w sheet. Alyssa Douglas MD Attn: [address] [place], [address], [facility] 10/10/2024 13:48:51 11/11/2024 text/html See molly w sheet. Alyssa Douglas MD Attn: [address] [place], [address], [place] [facility] 11/11/2024 11:20:45 OBGyn Episode Ob Episode Information Episode Created Date Number of Fetuses Patient Bloodtype Patient rh Status Prepregnancy Weight lbs Domestic Partner Domestic Partner Phone Father Name Yardage Control Clerk Status 10/10/19 25 1 CLOSED Fetus Data First Name Last Name Admitted to NICU Weight (g) Sex Living Outcome Pediatric Complications Fetus ID Race Codes Race Delivery Type , Spontane ous [id number] Mayco Calculation Initial Mayco Date Initial Exam Date Initial Exam Provider Initial Ultrasound Date Last Menstrual Period Date Ultra Sound Weeks Gestation 0 Eighteen To Twenty Week Mayco Update Ultra Sound Date Fundal Height At Umbil Quickening Date Ultra Sound Latest Weeks Gestation Final Mayco Confirmed By Final Mayco Confirmed Date Final Mayco Date Ultra Sound Latest Days Gestation 0 0 Menstrual History Last Menstrual Date Menses Monthly On Bcp Conception Prior Menses Frequency Hcg Plus Date Menarche Onset Age Delivery Information Delivery Date Delivery Type Labor Anesthesia Weeks Gestation Incision Type Labor Labor Length Hrs Delivered By Post Complications Tubal Sterilization Discharge Date Comments 6 Discharge Information Feeding Method Contraceptive Method Maternal HG B and HCT Levels Ob Episode Information Episode Created Date Number of Fetuses Patient Bloodtype Patient rh Status Prepregnancy Weight lbs Domestic Partner Domestic Partner Phone Father Name Yardage Control Clerk Status 09/05/19 25 1 O Positive OPEN Fetus Data First Name Last Name Admitted to NICU Weight (g) Sex Living Outcome Pediatric Complications Fetus ID Race Codes Race Delivery Type [id number] Problems Problem Notes PRAPARE done Problem Name Start Date End Date Resolution Snomed Code Not e Marijuana user [id number] Rubella non-immune [id number] Mayco Calculation Initial Mayco Date Initial Exam Date Initial Exam Provider Initial Ultrasound Date Last Menstrual Period Date Ultra Sound Weeks Gestation 05/09/2025 09/05/2024 11/14/2024 08/02/2024 14 Eighteen To Twenty Week Mayco Update Ultra Sound Date Fundal Height At Umbil Quickening Date Ultra Sound Latest Weeks Gestation Final Mayco Confirmed By Final Mayco Confirmed Date Final Mayco Date Ultra Sound Latest Days Gestation 0 11/20/2024 05/09/20 25 0 Pre-misa Flowsheet Flowsheet Date 10/10/2024 Borges Score Blood Edema Fundus Height Fundus Units Glucose Ketones Leukocytes Nitrite Labor Signs Protein Cervic Dilation Cervic Effacement Cervic Station neg none none negative none neg 0cm Type Weight in lbs Pre/Post Dialysis Refused With clothes 131.246428305317 BP Diastolic BP Location Tested BP Systolic BP Type 81 R arm 115 sitting Fetus Heart Rate Present Fetus Movement Comments Patient presents for initial visit. CBE and pelvic exam performed. Will obtain labs and schedule dating sonogram. Nutiritional counseling performed. RTC in 4 weeks. Flowsheet Date 11/11/2024 Borges Score Blood Edema Fundus Height Fundus Units Glucose Ketones Leukocytes Nitrite Labor Signs Protein Cervic Dilation Cervic Effacement Cervic Station neg none none negative none neg Type Weight in lbs Pre/Post Dialysis Refused With clothes 131.485794653694 BP Diastolic BP Location Tested BP Systolic BP Type 76 R arm 109 sitting Fetus Heart Rate Present A 150's Present Fetus Movement Comments Patient denies any complaint s. NIPT today. RTC in 4 weeks. Menstrual History Last Menstrual Date Menses Monthly On Bcp Conception Prior Menses Frequency Hcg Plus Date Menarche Onset Age 1208/02/2024 true false 6 8 Genetic Screening And Infection History Question Response Note Patient's Age Will Be 35 Yea rs Or Older At Estimated Date of Delivery false Thalassemia (Malay, [place]er, Mediterranean, Or Background): MCV < 80 false Neural Tube Defect (Meningom yelocele, Spina Bifida, Or Anencephaly) false Congenital Heart Defect false Down Syndrome false Tk-Sachs (eg, Adventist, Cajun, [place]) f alse Dinah Disease false Sickle Cell Disease Or Trait () false Hemophilia Or Other Blood Disorders false Muscular Dystrophy false Cystic Fibrosis false [place]'s Chorea false Mental Retardation/Autism false If Yes, Was Person Tested For Fragile X? false Other Inherited Genetic Or Chromosomal Disorder false Maternal Metabolic Disorder (eg, Type 1 Diabetes, PKU) false Patient Or Baby's Father Had A Child With Defects Not Listed Above false Recurrent Loss, Or A Stillbirth false Medications (including Suppl ements, Vitamins, Herbs, OTC Drugs), Illicit/Recreational Drugs, Alcohol true Vitamin & Marijanna If Yes, Agent(s) And Strength/Dosage false Any Other Genetic History false Live With Someone With TB Or Exposed To TB false Patient Or Partner Has Histo ry Of Genital Herpes false Rash Or Viral Illness Since Last Menstrual Period false History Of STD, Gonorrhea, C hlamydia, HPV, Syphilis true Chlamydia Other Infection History false History of HIV false History of Hepatitis false Prior GBS-infected child false Delivery Information Delivery Date Delivery Type Labor Anesthesia Weeks Gestation Incision Type Labor Labor Length Hrs Delivered By Post Complications Tubal Sterilization Discharge Date Comments Discharge Information Feeding Method Contraceptive Method Maternal HG B and HCT Levels Ob Episode Information Episode Created Date Number of Fetuses Patient Bloodtype Patient rh Status Prepregnancy Weight lbs Domestic Partner Domestic Partner Phone Father Name Yardage Control Clerk Status 05/26/20 22 1 O Positive CLOSED Fetus Data First Name Last Name Admitted to NICU Weight (g) Sex Living Outcome Pediatric Complications Fetus ID Race Codes Race Delivery Type Gamayl Jackie enriquez lay false 3183.67 [id number] F true Full Term 01725 [id number] White Vaginal Problems Problem Notes breast feeding boy cir ? epi dural yes cat advised not to change liter box Problem Name Start Date End Date Resolution Snomed Code Not e Depressive disorder 02352946 Anxiety disorder 907697782 Seizure disorder 674245918 Pt states the seizures stopped after removal of Nexplanon History of alcoholism 93828621 1 Past history of premature delivery 06/29/2022 439013022 Induce d secondary to oligohydramnios? Tobacco user [id number] Group B Streptococcus carrier 11/01/2022 [id number] Rubella non-immune 216416437 O ffer MMR after delivery Marijuana user [id number] Encou rage cessation Mayco Calculation Initial Mayco Date Initial Exam Date Initial Exam Provider Initial Ultrasound Date Last Menstrual Period Date Ultra Sound Weeks Gestation 10/31/2022 05/26/2022 [place] [id number] 06/15/2022 01/24/2022 19 Eighteen To Twenty Week Mayco Update Ultra Sound Date Fundal Height At Umbil Quickening Date Ultra Sound Latest Weeks Gestation Final Mayco Confirmed By Final Mayco Confirmed Date Final Mayco Date Ultra Sound Latest Days Gestation 0 [place] [id number] 06/17/2022 11/10/19 23 0 Pre- Flowsheet Flowsheet Date 06/09/2022 Borges Score Blood Edema Fundus Height Fundus Units Glucose Ketones Leukocytes Nitrite Labor Signs Protein Cervic Dilation Cervic Effacement Cervic Station neg none none negative none neg 0cm Type Weight in lbs Pre/Post Dialysis Refused With clothes 135.18637492899 BP Diastolic BP Location Tested BP Systolic BP Type 68 112 sitting Fetus Heart Rate Present A 150's Present Fetus Movement Comments Patient denies any complaint s. Presents for initial visit. CBE and pelvic exam performed. Ordered anatomy sonogram. NIPT obtained today. RTC in 4 weeks. Flowsheet Date 07/06/2022 Borges Score Blood Edema Fundus Height Fundus Units Glucose Ketones Leukocytes Nitrite Labor Signs Protein Cervic Dilation Cervic Effacement Cervic Station neg none 1+ negative none neg Type Weight in lbs Pre/Post Dialysis Refused With clothes 137.177947488847 BP Diastolic BP Location Tested BP Systolic BP Type 62 110 standing Fetus Heart Rate Present A 150's Present Fetus Movement A Yes Comments Patient admits to constipati on, prescription for colace sent to the pharmacy. RTC in 4 weeks. Flowsheet Date 08/03/2022 Borges Score Blood Edema Fundus Height Fundus Units Glucose Ketones Leukocytes Nitrite Labor Signs Protein Cervic Dilation Cervic Effacement Cervic Station neg none 24 cm none negative none neg Type Weight in lbs Pre/Post Dialysis Refused With clothes 142.123881733250 BP Diastolic BP Location Tested BP Systolic BP Type 66 102 sitting Fetus Heart Rate Present A 150's Present Fetus Movement A Yes Comments Patient denies any complaint s. Will complete DMS and CBC prior to next appointment. labor precautions given. RTC in 4 weeks. Flowsheet Date 09/06/2022 Borges Score Blood Edema Fundus Height Fundus Units Glucose Ketones Leukocytes Nitrite Labor Signs Protein Cervic Dilation Cervic Effacement Cervic Station neg none 30 cm none large none neg Type Weight in lbs Pre/Post Dialysis Refused Weight 144.942981040865 BP Diastolic BP Location Tested BP Systolic BP Type 72 114 sitting Fetus Heart Rate Present A 140's Present Fetus Movement A Yes Comments Patient denies any complaint s. She admits to FM, denies VB, LOF and CTXs. labor precautions given. RTC in 2 weeks. Flowsheet Date 09/20/2022 Borges Score Blood Edema Fundus Height Fundus Units Glucose Ketones Leukocytes Nitrite Labor Signs Protein Cervic Dilation Cervic Effacement Cervic Station neg none 32 cm none negative none neg Type Weight in lbs Pre/Post Dialysis Refused With clothes 145.737541862228 BP Diastolic BP Location Tested BP Systolic BP Type 66 110 sitting Fetus Heart Rate Present A 130's Present Fetus Movement A Yes Comments Patient admits to FM, denies VB, LOF and CTXs. labor precautions given. RTC in 2 weeks. Flowsheet Date 10/03/2022 Borges Score Blood Edema Fundus Height Fundus Units Glucose Ketones Leukocytes Nitrite Labor Signs Protein Cervic Dilation Cervic Effacement Cervic Station neg none 34 cm none negative none neg Type Weight in lbs Pre/Post Dialysis Refused With clothes 149.583671733066 BP Diastolic BP Location Tested BP Systolic BP Type 62 96 sitting Fetus Heart Rate Present A 130's Present Fetus Movement A Yes Comments Patient denies any complaint s. She admits to , denies VB, LOF and CTXs. labor precautions given. RTC in 1 week. Flowsheet Date 10/11/2022 Borges Score Blood Edema Fundus Height Fundus Units Glucose Ketones Leukocytes Nitrite Labor Signs Protein Cervic Dilation Cervic Effacement Cervic Station neg none 36 cm 4+ negative none 1+ Type Weight in lbs Pre/Post Dialysis Refused With clothes 149.617847356693 BP Diastolic BP Location Tested BP Systolic BP Type 60 102 sitting Fetus Heart Rate Present A 140's Present Fetus Movement A Yes Comments Patient denies any complaint s. She admits to FM, denies VB, LOF and CTXs. GBS and STD testing today. labor precautions given. RTC in 1 week. Flowsheet Date 10/19/2022 Borges Score Blood Edema Fundus Height Fundus Units Glucose Ketones Leukocytes Nitrite Labor Signs Protein Cervic Dilation Cervic Effacement Cervic Station neg none 36 cm none negative none neg 0cm Type Weight in lbs Pre/Post Dialysis Refused With clothes 151.058542034323 BP Diastolic BP Location Tested BP Systolic BP Type 72 110 sitting Fetus Heart Rate Present A 150's Present Fetus Movement A Yes Comments Patient admits to FM, denies VB, LOF and CTXs. Labor precautions given. RTC in 1 week. Flowsheet Date 10/26/2022 Borges Score Blood Edema Fundus Height Fundus Units Glucose Ketones Leukocytes Nitrite Labor Signs Protein Cervic Dilation Cervic Effacement Cervic Station neg none 38 cm none trace none neg Type Weight in lbs Pre/Post Dialysis Refused BP Diastolic BP Location Tested BP Systolic BP Type 76 115 sitting Fetus Heart Rate Present A 140's Present Fetus Movement A Yes Comments Patient denies any complaint s. Labor precautions given. RTC in 1 week. Flowsheet Date 11/01/2022 Borges Score Blood Edema Fundus Height Fundus Units Glucose Ketones Leukocytes Nitrite Labor Signs Protein Cervic Dilation Cervic Effacement Cervic Station neg none 39 cm none negative none neg 1cm 30% - 3 Type Weight in lbs Pre/Post Dialysis Refused With clothes 150.241178578521 BP Diastolic BP Location Tested BP Systolic BP Type 70 108 sitting Fetus Heart Rate Present A 140's Present Fetus Movement A Yes Comments Patient admits to FM, denies VB, LOF and CTXs. Labor precautions given. RTC in 1 week. Flowsheet Date 11/30/2022 Borges Score Blood Edema Fundus Height Fundus Units Glucose Ketones Leukocytes Nitrite Labor Signs Protein Cervic Dilation Cervic Effacement Cervic Station Type Weight in lbs Pre/Post Dialysis Refused Weight 137.027028431668 BP Diastolic BP Location Tested BP Systolic BP Type 71 108 sitting Fetus Heart Rate Present Fetus Movement Comments Menstrual History Last Menstrual Date Menses Monthly On Bcp Conception Prior Menses Frequency Hcg Plus Date Menarche Onset Age 0501/24/2022 false false 8 Genetic Screening And Infection History Question Response Note Patient's Age Will Be 35 Yea rs Or Older At Estimated Date of Delivery false Thalassemia (Malay, [place]er, Mediterranean, Or Background): MCV < 80 false Neural Tube Defect (Meningom yelocele, Spina Bifida, Or Anencephaly) false Congenital Heart Defect false Down Syndrome false Tk-Sachs (eg, Adventist, Cajun, [place]) t rue [place] FOB Dinah Disease false Sickle Cell Disease Or Trait () false Hemophilia Or Other Blood Disorders false Muscular Dystrophy false Cystic Fibrosis false Catarina's Chorea false Mental Retardation/Autism false If Yes, Was Person Tested For Fragile X? false Other Inherited Genetic Or Chromosomal Disorder false Maternal Metabolic Disorder (eg, Type 1 Diabetes, PKU) true FOB mother , pt grandmother Patient Or Baby's Father Had A Child With Defects Not Listed Above false Recurrent Loss, Or A Stillbirth false Medications (including Suppl ements, Vitamins, Herbs, OTC Drugs), Illicit/Recreational Drugs, Alcohol true pnv melatonin If Yes, Agent(s) And Strength/Dosage false Any Other Genetic History false Live With Someone With TB Or Exposed To TB false Patient Or Partner Has History Of Genital Herpes false Rash Or Viral Illness Since Last Menstrual Period false History Of STD, Gonorrhea, C hlamydia, HPV, Syphilis false Other Infection History false History of HIV false History of Hepatitis false Prior GBS-infected child false Delivery Information Delivery Date Delivery Type Labor Anesthesia Weeks Gestation Incision Type Labor Labor Length Hrs Delivered By Post Complications Tubal Sterilization Discharge Date Comments Sponta neous Regional-Ep idural 39.3 false Alyssa Douglas MD None 11/07/2022 Discharge Information Feeding Method Contraceptive Method Maternal HG B and HCT Levels Breast 11.6/36.6 Ob Episode Information Episode Created Date Number of Fetuses Patient Bloodtype Patient rh Status Prepregnancy Weight lbs Domestic Partner Domestic Partner Phone Father Name Yardage Control Clerk Status 05/26/20 22 1 CLOSED Fetus Data First Name Last Name Admitted to NICU Weight (g) Sex Living Outcome Pediatric Complications Fetus ID Race Codes Race Delivery Type 1955.88 [id number] Full Term [id number] Vaginal Mayco Calculation Initial Mayco Date Initial Exam Date Initial Exam Provider Initial Ultrasound Date Last Menstrual Period Date Ultra Sound Weeks Gestation 0 Eighteen To Twenty Week Mayco Update Ultra Sound Date Fundal Height At Umbil Quickening Date Ultra Sound Latest Weeks Gestation Final Mayco Confirmed By Final Mayco Confirmed Date Final Mayco Date Ultra Sound Latest Days Gestation 0 0 Menstrual History Last Menstrual Date Menses Monthly On Bcp Conception Prior Menses Frequency Hcg Plus Date Menarche Onset Age Delivery Information Delivery Date Delivery Type Labor Anesthesia Weeks Gestation Incision Type Labor Labor Length Hrs Delivered By Post Complications Tubal Sterilization Discharge Date Comments 3 Regional-Ep idural 36 IOL seocndary to oligohydr amnios Discharge Information Feeding Method Contraceptive Method Maternal HG B and HCT Levels
--- OUTSIDE RECORDS SUMMARY | 2024-12-11 09:00 | XMS_ITS | Referral Summary ---
Author Organization [facility] Address [address] [place] [address] Care Team Providers Care Frog Catcher Name Role Phone Mauricio Cantu MD Unavailable [phone] No, Physician Primary Care Provider Encounters Date Type Department Care Team Description 11/14/2024 9:28 AM CDT - 11/14/2024 11:59 PM CDT Hospital Encounter [facility] [address] [place] [id number] state, incidental Discharge Disposition: Discharge to home or self care from Last 3 Months Allergies Active Allergy Reactions Criticality Noted Date Comments Latex Rash Medium 01/31/2024 Medications docusate sodium (COLACE) 100 mg capsuleIndicati ons:constipatio n,Stool Softener Take 1 capsule (100 mg total) by mouth 2 (two) times a day 30 capsule 1 3 Active Additional Information Patient not taking.Reported on 01/31/2024 ibuprofen (ADVIL,MOTRIN) 600 mg tabletIndicatio ns:Cramps Take 1 tablet (600 mg total) by mouth every 6 (six) hours as needed for pain 30 tablet 3 Active cetirizine (ZyrTEC) 10 mg tablet 4 Active Active Problems Problem Noted Date Diagnosed Date Palpitations 01/31/2024 Postural dizziness with presyncope 01/31/2024 39 weeks gestation of 11/05/2022 Group B Streptococcus marietta r, delivered, current hospitalization 11/05/2022 Social History Tobacco Use Types Packs/Day Years Used Date Smoking Tobacco: Every Day Cigarettes Smokeless Tobacco: Current Tobacco Cessation:Ready to Q uit: Not Asked; Counseling Given: Not Answered Alcohol Use Standard Drinks/Week Comments Yes 0 (1 standard drink = 0.6 oz pur e alcohol) Daily drinker of rum Social Connection and Isolat ion Panel [NHANES] Answer Date Recorded In a typical week, how many times do you talk on the phone with family, friends, or neighbors? More than three times a week 11/05/2022 How often do you get togethe r with friends or relatives? More than three times a week 11/05/2022 How often do you attend chur ch or rastafarian services? Never 11/05/2022 Do you belong to any clubs o r organizations such as anglican groups, unions, fraternal or athletic groups, or school groups? No 11/05/2022 How often do you attend meet ings of the clubs or organizations you belong to? Never 11/05/2022 Are you , , di vorced, , never , or living with a partner? Living with partner 11/05/2022 AUDIT-C Answer Date Recorded Q1: How often do you have a drink containing alcohol? Never 11/05/2022 Q2: How many drinks containi ng alcohol do you have on a typical day when you are drinking? Patient does not drink Q3: How often do you have si x or more drinks on one occasion? Never 11/05/2022 Overall Financial Resource Strain (CARDIA) Answe r Date Recorded How hard is it for you to pa y for the very basics like food, housing, medical care, and heating? Not hard at all 11/05/2022 PHQ-2 Answer Date Recorded PHQ-2 Total Score (If total score is 3 or more points, staff should administer the PHQ-9) 0 11/04/2022 [facility] [place] of Occupat ional Health - Occupational Stress Questionnaire Answer Date Recorded Do you feel stress - tense, restless, nervous, or anxious, or unable to sleep at night because your mind is troubled all the time - these days? Not at all 11/05/2022 Exercise Vital Sign Answer Date Recorde d On average, how many days pe r week do you engage in moderate to strenuous exercise (like a brisk walk)? 2 days 11/04/2022 On average, how many minutes do you engage in exercise at this level? 30 min 11/04/2022 Hunger Vital Sign Answer Date Recorded Within the past 12 months, y ou worried that your food would run out before you got the money to buy more. Never true 11/06/19 23 Within the past 12 months, t he food you bought just didn't last and you didn't have money to get more. Never true 11/05/2022 PRAPARE - Transportation Answer Date Re corded In the past 12 months, has l ack of transportation kept you from medical appointments or from getting medications? No 10/26 In the past 12 months, has l ack of transportation kept you from meetings, work, or from getting things needed for daily living? No 11/05/2022 Housing Stability Vital Sign Answer Davonte e Recorded In the last 12 months, was t here a time when you were not able to pay the mortgage or rent on time? No 11/05/2022 Number of Places Lived in the Last Year Not on f ile 11/05/2022 In the last 12 months, was t here a time when you did not have a steady place to sleep or slept in a nursing home (including now)? 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 Gender Identity Not on file Sexual Orientation Not on file Last Filed Vital Signs Vital Sign Reading Time Taken Comments Blood Pressure 108/76 01/31/2024 10:53 AM CDT Pulse 81 01/31/2024 10:53 AM CDT Temperature 35.7 C (96.2 F) 11/07/2022 8:20 AM CDT Respiratory Rate 18 01/31/2024 10:53 AM CDT Oxygen Saturation 99% 11/05/2022 7:56 AM CASEY SAW OPERATOR Inhaled Oxygen Concentration - - Weight 51.7 kg (114 lb) 01/31/2024 10:53 AM CDT Height 165.1 cm (5' 5 ) 01/31/2024 10:53 AM CDT Body Mass Index 18.97 01/31/2024 10:53 AM CDT Plan of Treatment Not on file Procedures Procedure Name Priority Date/Time Associated Diagnosis Comments US OB 14 WEEKS OR OVER Schedule Routine, Read Routine (OP Routine) 11/14/2024 10:13 AM CDT state, incidental from Last 3 Months Results * US OB 14 Weeks Or Over (11/14/2024 10:13 AM CDT) Anatomical Region Laterality Modality Abdomen N/A Ultrasound 11/20/2024 7:49 AM CDT Narrative 11/20/2024 7:52 AM CDT EXAM DESCRIPTION: US OB 14 WEEKS OR OVER REASON FOR STUDY: STATE, INCIDENTAL TECHNIQUE: Complete transabdominal obstetric ultrasound was performed. COMPARISON: None. FINDINGS: The provided clinical age is 14 weeks 3 days with an EDC 05/12/2025. The uterus is 11.1 x 8.6 x 9.7 cm. heart rate is 146 beats per minute. The cervix is measured at 4.0 cm. The placenta is anterior, this appears to a butter cover the cervix but this is nonspecific at this stage of and attention will be needed at the time of the anatomical survey. BPD is 2.58 cm corresponding to 14 weeks 3 days. HC is 9.88 cm corresponding to 14 weeks 4 days. AC is 8.50 cm corresponding to 14 weeks 6 days. FL is 1.26 cm corresponding to 13 weeks 5 days. Estimated age based on this ultrasound 14 weeks 3 days with an EDC 05/12/2025. The weight is not yet estimated. IMPRESSION: 1. Single uterine estimated at 14 weeks 3 days with an EDC 05/12/2025. 2. heart rate 146 beats per minute. 3. Anterior placenta with the placenta either abutting or covering the internal os, attention to this on follow-up anatomical survey. THIS IS AN ELECTRONICALLY VERIFIED FINAL REPORT 11/20/2024 7:52 AM - Electronically signed by Morgan Kimble M.D. CH: JAD Report ID: [id number] Reading Location: [id number] Procedure Note Morgan Kimble Jr., MD - 11/20/2024 EXAM DESCRIPTION: US OB 14 WEEKS OR OVER REASON FOR STUDY: STATE, INCIDENTAL TECHNIQUE: Complete transabdominal obstetric ultrasound was performed. COMPARISON: None. FINDINGS: The provided clinical age is 14 weeks 3 days with an EDC 05/12/2025. The uterus is 11.1 x 8.6 x 9.7 cm. heart rate is 146 beats per minute. The cervix is measured at 4.0 cm. The placenta is anterior, this appears to a butter cover the cervix butthis is nonspecific at this stage of and attention will be needed atthe time of the anatomical survey. BPD is 2.58 cm corresponding to 14 weeks 3 days. HC is 9.88 cm corresponding to 14 weeks 4 days. AC is 8.50 cm corresponding to 14 weeks 6 days. FL is 1.26 cm corresponding to 13 weeks 5 days. Estimated age based on this ultrasound 14 weeks 3 days with an EDC05/12/2025. The weight is not yet estimated. IMPRESSION: 1. Single uterine estimated at 14 weeks 3 days with an EDC 05/12/2025. 2. heart rate 146 beats per minute. 3. Anterior placenta with the placenta either abutting or covering the internal os, attention to this on follow-up anatomical survey. THIS IS AN ELECTRONICALLY VERIFIED FINAL REPORT 11/20/2024 7:52 AM - Electronically signed by Morgan Kimble M.D. CH: JAD Report ID: [id number] Reading Location: [place] [id number] us Mauricio Cantu MD IMG OB US PROCEDURES F inal Result from Last 3 Months Insurance Advance Directives For more information, please contact: [phone] * Full Code (Latest Code Status on File) Date Activated Date Inactivated Comments 11/05/2022 9:25 AM 11/07/2022 8:22 PM * Full Code Date Activated Date Inactivated Comments 11/05/2022 2:04 AM 11/05/2022 9:25 AM Full CPR in case of cardiopulmonary arrest Care Teams Frog Catcher Relationship Specialty Start Date End Date No, Physician PCP - General 10/11/24 Mauricio Cantu MD [address] [place] [address] [address] BISHOP B [address] [address] Central Supply Technician Supervisor Obstetrics and Gynecology 11/07/22
--- OUTSIDE RECORDS SUMMARY | 2024-12-11 09:00 | XMS_ITS | Clinical Summary ---
Author Organization [facility] Address [address] [place] [id number] Care Team Providers Care Arm Maker Name Role Phone Mauricio Cantu MD Unavailable + [phone] No, Physician Primary Care Provider [phone] Allergies Active Allergy Reactions Criticality Noted Date [...] Streptococcus marietta r, delivered, current hospitalization 11/05/2022 Encounters Date Type Department Care Team Description 11/14/2024 9:28 AM CDT - 11/14/2024 11:59 PM CDT Hospital Encounter [facility] [address] [place] [phone] state, incidental Discharge Disposition: Discharge to home or self care from Last 3 Months Medical History Medical History Date Comments Alcoholic (HCC) Social History Tobacco Use Types Packs/Day Years Used Date Smoking Tobacco: Every Day Cigarettes Smokeless Tobacco: Current Tobacco Cessation:Ready to Q uit: Not Asked; Counseling Given: Not Answered Alcohol Use Standard Drinks/Week Comments Yes 0 (1 standard drink = 0.6 oz pur e alcohol) Daily drinker of ComActivity Social Connection and Isolat ion Panel [NHANES] Answer Date Recorded In a typical week, how many times do you talk on the phone with family, friends, or neighbors? More than three times a week 11/05/2022 How often do you get togethe r with friends or relatives? More than three times a week 11/05/2022 How often do you attend chur ch or jehovah's witness services? Never 11/05/2022 Do you belong to any clubs o r organizations such as jewish groups, unions, fraternal or athletic groups, or [...] staff should administer the PHQ-9) 0 11/04/2022 [facility] [place] of Occupat ional Health - Occupational Stress [...] place to sleep or slept in a group home (including now)? No 11/05/2022 Personal Safety Answer Date Recorded Getting School Help Needed Denies 09/03 Comments No Sex and Gender Information Value Date Recorded Sex Assigned at Not on file Legal Sex Female 12:12 PM STATE WILDLIFE OFFICER Gender Identity Not on file Sexual Orientation Not on file Obstetrics History Para Term AB IAB SAB Ectopic Multiple Livin g Live Births 4 2 1 1 2 2 0 2 2 Date Outcome GA Total Labor Labor/2nd/3rd Weight Sex Type Anes PTL Josefina A1 A5 Name Clin SAB 2007 SAB 2012 36w 0d 1.956 kg (4 lb 5 oz) Vag-S pont Livin g 2022 Term 39w 3d 2h 25m 2h 00m/0h 20m/0h 05m 3.185 kg (7 lb 0.4 oz) F Vag-S pont Epidur al N Livin g 8 9 AL, GIRLS IEJEFFERSON Arredondo n, Mauricio howe MD Complications:None Delivery Location:[facility] ([facility]) Last Filed Vital Signs Vital Sign Reading Time Taken Comments Blood Pressure 108/76 01/31/2024 10:53 AM CDT Pulse 81 01/31/2024 10:53 AM CDT Temperature 35.7 C (96.2 F) 11/07/2022 8:20 AM CDT Respiratory Rate 18 01/31/2024 10:53 AM CDT Oxygen Saturation 99% 11/05/2022 7:56 AM STATE WILDLIFE OFFICER Inhaled Oxygen Concentration - - Weight 51.7 kg (114 lb) 01/31/2024 10:53 AM CDT Height 165.1 cm (5' 5 ) 01/31/2024 10:53 AM CDT Body Mass Index 18.97 01/31/2024 10:53 AM CDT Plan of Treatment Health Maintenance Due Date Last Done Comments Cervical Cancer Screening 1993 Hepatitis C Screening 1993 Varicella Vaccines (1 of 2 - 13+ 2-dose series) 2006 Hepatitis B Screening 2011 Regular Well Visit/Exam 18-64 2011 Pneumococcal vaccine <65 (1 of 2 - PCV) 2012 Depression Screening 11/04/2023 11/03/2022, 11/03/2022, 10/07/2022, Additional history exists Influenza Vaccine (Season Ended) 2025 DTaP/Tdap/Td Vaccine (3 - Td or Tdap) 08/09/2032 08/09/2022, 06/04/2013 HPV Vaccines Aged Out No longer eligi ble based on patient's age to complete this topic Procedures Procedure Name Priority Date/Time Associated Diagnosis [...] Morgan Kimble M.D. CH: JAD Report ID: [id number] Reading Location: [place] [address] Procedure Note Morgan Kimble Jr., MD - [...] Morgan Kimble M.D. CH: JAD Report ID: [id number] Reading Location: [place] [address] us Mauricio Cantu MD IMG OB US PROCEDURES F inal Result from Last 3 Months Insurance Advance Directives For more information, please contact: [phone] * Full Code (Latest Code Status on File) Date Activated Date Inactivated Comments 11/05/2022 9:25 AM 11/07/2022 8:22 PM * Full Code Date Activated Date Inactivated Comments 11/05/2022 2:04 AM 11/05/2022 9:25 AM Full CPR in case of cardiopulmonary arrest Care Teams Arm Maker Relationship Specialty Start Date End Date No, Physician PCP - General 10/11/24 Mauricio Cantu MD [address] [facility] [place] [address] Vp Software Engineering Obstetrics and Gynecology 11/07/22
--- OUTSIDE RECORDS SUMMARY | 2024-12-11 09:00 | XMS_ITS | Clinical Summary ---
Author Organization [facility] Address [address] [place] [phone] Phone Care Team Providers Care Public Works Director Name Role Phone Provider, None Primary Care Provider Unavailabl e Allergies Active Allergy Reactions Criticality Noted Date Comments Latex Rash Medium 01/31/2024 Medications chlorhexidine (PERIDEX) 0.12 % SolutionIndicati ons:Dental infection 15 mL by Swish & Spit route 2 times daily. 473 mL 09/16/2024 Active Active Problems Estimated Date of Delivery Comme nts Yes 05/11/2025 No known active problems Encounters Date Type Department Care Team Description 09/16/2024 11:20 AM PHOTOGRAPHY SPOTTER Urgent Care Visit [facility] [place] [address] [place] [phone] Yareli Peace, WOMEN'S SWIM COACH, SPECIAL SERVICES DIRECTOR Dental infection (Primary Dx) Discharge Disposition: Discharged to home or Selfcare 09/16/2024 Travel from Last 3 Months Social History Tobacco Use Types Packs/Day Years Used Date Smoking Tobacco: Every Day Cigarettes Smokeless Tobacco: Never Tobacco Cessation:Ready to Q uit: Not Asked; Counseling Given: Not Answered Alcohol Use Standard Drinks/Week Comments Not Currently 0 (1 standard drink = 0.6 oz pur e alcohol) Sexually Active Control Partners Comments Yes Estimated Date of Delivery Comme nts Yes 05/11/2025 Sex and Gender Information Value Date Recorded Sex Assigned at Not on file Legal Sex Female 12:40 AM CDT Gender Identity Not on file Sexual Orientation Not on file Last Filed Vital Signs Vital Sign Reading Time Taken Comments Blood Pressure 108/64 09/16/2024 11:23 AM PHOTOGRAPHY SPOTTER Pulse 89 09/16/2024 11:23 AM PHOTOGRAPHY SPOTTER Temperature 36.8 C (98.2 F) 09/16/2024 11:23 AM PHOTOGRAPHY SPOTTER Respiratory Rate 19 09/16/2024 11:23 AM PHOTOGRAPHY SPOTTER Oxygen Saturation 98% 09/16/2024 11:23 AM PHOTOGRAPHY SPOTTER Inhaled Oxygen Concentration - - Weight 62.1 kg (137 lb) 07/14/2022 5:43 PM PHOTOGRAPHY SPOTTER Height - - Body Mass Index - - Plan of Treatment Health Maintenance Due Date Last Done Comments Hepatitis C Virus (HCV) Screening 1993 Hepatitis B Immunization (1 of 3 - 19+ 3-dose series) 2012 Pneumococcal Immunization Combined (1 of 2 - PCV) 2012 Pap Smear 2014 Cervical Cancer Screening (CCS) 2023 HPV/Cotest 2023 Influenza Immunization (#1) 2024 SARS-COV-2 Immunization ( season) 2024 DTaP/Tdap/Td Immunization Discontinued 2021, 06/04/2013 TdaP Immunization Completed 08/09/2022, 06/04/2013 Meningococcal Immunization (ACWY) Aged Out No longer eligible based on patient's age to complete this topic Respiratory Syncytial Virus (RSV) Immunization (Adult) (No Doses Required) Completed Rotavirus Immunization Aged Out No lo nger eligible based on patient's age to complete this topic Insurance MEDICAID [employer] Care Teams Public Works Director Relationship Specialty Start Date End Date Provider, None [place] PCP - General 07/14/22
--- OUTSIDE RECORDS SUMMARY | 2024-12-11 09:00 | XMS_ITS | Clinical Summary ---
Author Organization [facility] Address [address] [place] [id number] Care Team Providers Care Digital Marketing Apprentice Name Role Phone None, Provider MD Primary Care Provider Unavaila ble Allergies No known active allergies Medications No known medications Active Problems Problem Noted Date Diagnosed Date Alcohol withdrawal ([facility]) 12/14/2018 Social History Tobacco Use Types Packs/Day Years Used Date Smoking Tobacco: Every Day Cigarettes Smokeless Tobacco: Never Tobacco Cessation:Ready to Q uit: No; Counseling Given: No Comments:per [facility] records Alcohol Use Standard Drinks/Week Comments Yes 0 (1 standard drink = 0.6 oz pure alcohol) patient records from [facility] states she drinks 1/2 gallon daily AUDIT-C Answer Date Recorded Frequency of Alcohol Consumption Never 12/14/2018 Average Number of Drinks Not on file 019 Frequency of Binge Drinking Not on file 11/26 Comments No Sex and Gender Information Value Date Recorded Sex Assigned at Female 12/14/2018 3:42 PM CDT Legal Sex Female 6:00 PM GAS LINE SERVICER Gender Identity Female 12/14/2018 3:42 PM CDT Sexual Orientation Straight 12/14/2018 3: 42 PM CDT Last Filed Vital Signs Vital Sign Reading Time Taken Comments Blood Pressure 118/84 03/06/2022 4:58 PM CDT Pulse 90 03/06/2022 4:58 PM CDT Temperature 36.4 C (97.6 F) 03/06/2022 4:58 PM CDT Respiratory Rate 20 03/06/2022 4:58 PM CDT Oxygen Saturation 99% 03/06/2022 4:58 PM CDT Inhaled Oxygen Concentration - - Weight 56.7 kg (125 lb) 03/06/2022 4:58 PM CDT Height 165.1 cm (5' 5 ) 03/06/2022 4:58 PM CDT Body Mass Index 20.8 03/06/2022 4:58 PM CDT Plan of Treatment Health Maintenance Due Date Last Done Comments Cervical Cancer Screening Pa p Smear (Age 30 to 64) Every 3 Years 1993 Annual Physical 1996 Pneumococcal Vaccine: Pediat rics (0 to 5 Years) and At-Risk Patients (6 to 49 Years) (1 of 2 - PCV) 1999 Hepatitis C 2011 Hepatitis B Vaccines (1 of 3 - 19+ 3-dose series) 2012 Cervical Cancer Screening Pa p with HPV Testing (Age 30 to 64) Every 5 Years 2023 Cervical Cancer Screening with HPV 2023 DTaP, Tdap and Td Vaccines ( 2 - Td or Tdap) 06/04/2023 06/04/2013 COVID-19 Vaccine (2023-2 5 season) 2024 HPV Vaccines Aged Out No longer eligi ble based on patient's age to complete this topic Meningococcal B Vaccine Aged Out No l onger eligible based on patient's age to complete this topic Meningococcal Vaccine Aged Out No odilon eric eligible based on patient's age to complete this topic RSV Immunizations Under 20 Months Aged Out No longer eligible based on patient's age to complete this topic Insurance MEDICAID Advance Directives * Full Code (Latest Code Status on File) Date Activated Date Inactivated Comments 12/14/2018 1:32 PM 12/17/2018 10:31 PM Care Teams Digital Marketing Apprentice Relationship Specialty Start Date End Date None, Provider, PCP - General 12/17/18
== END 2024-12-11 08:39 | disposition home or self-care (01) ==
LOC: CHSIMG 08:42
PROVIDERS: PCP Nurse Practitioner Family; Visit Provider Obstetrics & Gynecology
DX: Z34.92 Encounter for supervision of normal pregnancy, unspecified, second trimester (principal)
CPT/HCPCS: 76816

== ENCOUNTER 2025-01-01 12:10 | Outpatient (CLI) | payer OTHER, SELFPAY ==
--- NOTE | ~2025-01-01 | US_ITS ---
EXAMINATION: US OB /maternal detail DATE: 01/01/2025 23:58 CDT INDICATION: Anatomy TECHNIQUE: Real-time transabdominal obstetric ultrasound. FINDINGS: 7 para 2 There is a single intrauterine gestation in breech presentation. The placenta is anterior, with its tip measuring approximately 4.3 cm from the cervix. The cervix measures 4 cm in length. cardiac activity and movement is noted with a heart rate of 149 beats per minute. Anatomic parameters are as follows The bladder is visualized and is unremarkable. A three-vessel cord is present and is demonstrated to insert on the midline. Bilateral kidneys are present without hydronephrosis. The anterior and posterior margins of the diaphragm are poorly visualized for which follow-up examination is needed. The cervical, thoracic and lumbar spines are covered in their entirety. choroid plexi are visualized, and unremarkable. Lateral ventricles are visualized. The falx is visualized. The cerebellum is visualized measuring 19.6 mm, and is sonographically unremarkable. The cisterna magna measures 3.9 mm in anterior to posterior dimension (normal measurement is 2 to 10 mm). The nuchal fold measures 3.7 mm (greater than 6 mm is considered abnormal). Cine and static images of the four-chamber heart are visualized and is anatomic. Both the right and left ventricular outflow tracts are identified and are unremarkable. Limited views of the arms, hands, legs and feet were performed and appear grossly unremarkable. Multiple views of the upper lip and nose were submitted on static imaging to confirm their continuity . The following biometric data were obtained: Biparietal diameter (BPD): 4.8 cm; head circumference (HC): 18.2 cm; abdominal circumference (AC): 15.4 cm; femur length (FL): 3.6 cm. These measurements are concordant. Estimated weight is 381.8 g +/- 57.3 g, which correlates with the 24th percentile when is used as estimated date of delivery. As single measurements, these parameters are each equal to the following estimated gestational ages: BPD: 20 weeks 4 days. HC: 20 weeks 4 days. AC: 20 weeks 4 days. FL: 21 weeks 2 days. estimated gestational age based solely on measurements from this exam is 20 weeks 5 days +/- 1 week 3 days. IMPRESSION: Single intrauterine gestation with an approximate gestational age of 20 weeks and 5 days. Estimated d ue date by ultrasound is 05/16/2025 The anterior and posterior margins of the diaphragm are poorly visualized for which follow-up e xamination is needed. Remainder of the anatomy scan is unremarkable, as detailed above. Reviewed, dictated and finalized at location A. IMPRESSION: Single intrauterine gestation with an approximate gestational age of 20 weeks a nd 5 days. Estimated due date by ultrasound is 05/16/2025 The anterior and posterior margins of the diaphragm are poorly visualized for which follow-up examination is needed. Remainder of the anatomy scan is unremarkable, as detailed above.
--- OUTSIDE RECORDS SUMMARY | 2025-01-01 12:28 | XMS_ITS | Clinical Summary ---
Author Organization [facility] Address [address] [place] [address] Care Team Providers Care Doctor Of Pharmacy Name Role Phone Mauricio Cantu MD Unavailable + [phone] No, Physician Primary Care Provider [phone] Allergies Active Allergy Reactions Criticality Noted Date [...] - 11/14/2024 11:59 PM CDT Hospital Encounter [facility] [address] [place] [address] state, incidental Discharge Disposition: Discharge to home [...] oz pur e alcohol) Daily drinker of Transcriptic Social Connection and Isolat ion Panel [NHANES] Answer Date Recorded In a typical week, how many times do you talk on the phone with family, friends, or neighbors? More than three times a week 11/05/2022 How often do you get togethe r with friends or relatives? More than three times a week 11/05/2022 How often do you attend chur ch or restorationist services? Never 11/05/2022 Do you belong to [...] staff should administer the PHQ-9) 0 11/04/2022 [facility] [place] of Occupat ional Health - Occupational Stress [...] place to sleep or slept in a penitentiary (including now)? No 11/05/2022 Personal Safety Answer Date Recorded Getting School Help Needed Denies 09/03 Comments No Sex and Gender Information Value Date Recorded Sex Assigned at Not on file Legal Sex Female 12:12 PM CONTINUOUS MINING MACHINE [employer] MINER Gender Identity Not on file Sexual Orientation [...] Epidur al N Livin g 8 9 IRMA, GIRLS IEJEFFERSON Arredondo n, Mauricio howe MD Complications:None Delivery Location:This Facil ity ([facility]) Last Filed Vital Signs Vital Sign Reading Time Taken Comments Blood Pressure 108/76 01/31/2024 10:53 AM CDT Pulse 81 01/31/2024 10:53 AM CDT Temperature 35.7 C (96.2 F) 11/07/2022 8:20 AM CDT Respiratory Rate 18 01/31/2024 10:53 AM CDT Oxygen Saturation 99% 11/05/2022 7:56 AM CONTINUOUS MINING MACHINE COMPANY MINER Inhaled Oxygen Concentration - - Weight 51.7 [...] Morgan Kimble M.D. CH: JAD Report ID: [id number] Reading Location: [place] [address] Procedure Note Morgan Kimble Jr., MD - [...] Morgan Kimble M.D. CH: JAD Report ID: [id number] Reading Location: [place] [address] us Mauricio Cantu MD IMG OB US PROCEDURES F inal Result from Last 3 Months Insurance Advance Directives For more information, please contact: [phone] * Full Code (Latest Code Status on File) Date Activated Date Inactivated Comments 11/05/2022 9:25 AM 11/07/2022 8:22 PM * Full Code Date Activated Date Inactivated Comments 11/05/2022 2:04 AM 11/05/2022 9:25 AM Full CPR in case of cardiopulmonary arrest Care Teams Doctor Of Pharmacy Relationship Specialty Start Date End Date No, Physician PCP - General 10/11/24 Mauricio Cantu MD [address] [facility] [address] [place] [place] [address] Product Manager [employer] Obstetrics and Gynecology 11/07/22
--- OUTSIDE RECORDS SUMMARY | 2025-01-01 12:28 | XMS_ITS | Encounter Summary ---
Author Organization [facility] Address [address] [place] [address] Phone Care Team Providers Care Tempering Kiln Tender Name Role Phone Provider, None Primary Care Provider Unavailabl e Reason for Visit * Reason Comments Back Pain Facial Pain Encounter Details Date Type Department Care Team (Late st Contact Info) Description 01/01/2025 8:57 AM CDT - 01/01/2025 10:52 AM CDT Emergency [facility] [address] [place] [address] Maritza Andres, RESTAURANT HOST, WET PAN OPERATOR [address] [place] [address] Flank pain Discharge Disposition: Discharged to home or Selfcare Social History Tobacco Use Types Packs/Day Years Used Date Smoking Tobacco: Every Day Cigarettes Smokeless Tobacco: Never Alcohol Use Standard Drinks/Week Comments Not Currently 0 (1 standard drink = 0.6 oz pur e alcohol) Sexually Active Control Partners Comments Yes Estimated Date of Delivery Comme nts Yes 05/11/2025 Sex and Gender Information Value Date Recorded Sex Assigned at Not on file Legal Sex Female 12:40 AM CDT Gender Identity Not on file Sexual Orientation Not on file documented as of this encounter Last Filed Vital Signs Vital Sign Reading Time Taken Comments Blood Pressure 113/71 01/01/2025 10:45 AM CDT Pulse 71 01/01/2025 10:45 AM CDT Temperature 36.1 C (97 F) 01/01/2025 9:10 AM CDT Respiratory Rate 18 01/01/2025 10:45 AM CDT Oxygen Saturation 100% 01/01/2025 10:45 AM CDT Inhaled Oxygen Concentration - - Weight 62.3 kg (137 lb 5.6 oz) 01/01/2025 9:06 A M CDT Height 165.1 cm (5' 5 ) 01/01/2025 9:06 AM CDT Body Mass Index 22.86 01/01/2025 9:06 AM CDT documented in this encounter Discharge Instructions * Discharge Instructions* Maritza Andres APRN, CNP - 01/01/2025 10:45 AM CDT Stay hydrated. Follow up with your OBGYN as discussed. If you have any increased pain, nausea, vomiting, diarrhea, difficulty urinating or pain with urination, chest pain or shortness of breath, please return immediately for further evaluation. documented in this encounter Medications at Time of Discharge Amoxicillin 500 MG Tablet Take 1 Tablet by mouth 2 times daily for 10 days. 20 Tablet 12/26/2024 01/05/2025 chlorhexidine (PERIDEX) 0.12 % SolutionIndicatio ns:Dental infection 15 mL by Swish & Spit route 2 times daily. 473 mL 09/16/2024 documented as of this encounter ED Notes * Irma Leslie RN - 01/01/2025 10:51 AM CDT Patient discharged. Discharge instructions and patient educational material reviewed with patient; questions and concerns addressed; patient verbalizes understanding, using teach back. Patient was given 0 prescriptions. Patient discharged per ambulatory mode with self as responsible democrat. * Timothy Tong RN - 01/01/2025 9:42 AM CDT Urine collected and sent to lab. * Timothy Tong RN - 01/01/2025 9:15 AM CDT Pt to ed room 5A with c/o left lower back pain that has been ongoing for the past couple of days. Also states dental pain. Pt was seen for this at this ED and was given Abx and states no relief. She denies any other sx at this time. * Sheri Quezada RN - 01/01/2025 9:07 AM CDT Patient to ED room 5A with c/o upper right dental pain and right-sided back pain that began yesterday. States she was prescribed an antibiotic for her dental pain but has not had any relief. Also reports urinary frequency. States she is approx. 22 weeks ; . documented in this encounter Miscellaneous Notes * PatientPass Patient Instructions - Maritza Andres APRN, WET PAN OPERATOR - 01/01/2025 10:45 AM CDT Images from the original note were not included. Patient Education Table of Contents Flank Pain, Adult To view videos and all your education online visit, [email or web address] or scan this QR code with your smartphone. Access to this content will in one year. Flank Pain, Adult Flank pain is pain in your side. The flank is the area on your side between your upper belly (abdomen) and your spine. The pain may occur over a short time (acute), or it may be long-term or come back often (chronic). It may be mild or very bad. Pain in this area can be caused by many different things. Follow these instructions at home: Drink enough fluid to keep your pee (urine) pale yellow. Rest as told by your doctor. Take khyj-[id number] and prescription medicines only as told by your doctor. Keep a journal to keep track of: ? What has caused your flank pain. ? What has made your flank pain feel better. Keep all follow-up visits. Contact a doctor if: Medicine does not help your pain. You have new symptoms. Your pain gets worse. Your symptoms last longer than 2?3 days. You have trouble peeing. You are peeing more often than normal. Get help right away if: You have trouble breathing. You are short of breath. Your belly hurts, or it is swollen or red. You feel like you may vomit (nauseous). You vomit. You feel faint, or you faint. You have blood in your pee. You have flank pain and a fever. These symptoms may be an emergency. Get help right away. Call your local emergency services (911 int [place] Do not wait to see if the symptoms will go away. Do not drive yourself to the hospital. Summary Flank pain is pain in your side. The flank is the area of your side between your upper belly (abdomen) and your spine. Flank pain may occur over a short time (acute), or it may be long-term or come back often (chronic). It may be mild or very bad. Pain in this area can be caused by many different things. Contact your doctor if your symptoms get worse or last longer than 2?3 days. This information is not intended to replace advice given to you by your health care provider. Make sure you discuss any questions you have with your health care provider. Document Released: 2009-05-23 Document Updated: 2021-10-25 Document Reviewed: 2021-10-25 [employer] Patient Education ? 2024 [employer] documented in this encounter Plan of Treatment Not on file documented as of this encounter Procedures Procedure Name Priority Date/Time Associated Diagnosis Comments URINALYSIS REFLEX IF INDICATED BY ABNORMAL RESULTS STAT 01/01/2025 9:41 AM CDT documented in this encounter Results * (ABNORMAL) Urinalysis w/ Reflex (01/01/2025 9:41 AM CDT) SPECIFIC GRAVITY 1.005 1.003 - 1.030 01/01/2025 9:49 AM CDT [facility] URINE PH 7.0 5.0 - 9.0 01/01/2025 9:49 AM CDT [facility] WBC ESTERASE Negative Negative 01/01/2025 9:49 AM CDT [facility] NITRITE Negative Negative 01/01/2025 9:49 AM CDT [facility] PROTEIN, RANDOM URINE 15 mg/dL(A) Negative 01/01/2025 9:49 AM CDT [facility] URINE GLUCOSE, QUAL Negative Negative 01/01/2025 9:49 AM CDT [facility] URINE KETONES Negative Negative 01/01/2025 9:49 AM CDT [facility] UROBILINOGEN Normal Normal mg/dL 01/01/2025 9:49 AM CDT [facility] URINE BLOOD Negative Negative sal/ul 01/01/2025 9:49 AM CDT [facility] URINALYSIS COLOR Yellow 01/02/20 9:49 AM CDT [facility] URINALYSIS CLARITY Clear 01/01/2025 9:49 AM CDT [facility] Urine URINE SPECIMEN / Unknown Non-Phlebotomy Collection / Unknown 01/01/2025 9:41 AM CDT 01/01/2025 9:44 AM CDT us Maritza Andres APRN, WET PAN OPERATOR URINE ORDERABLES F inal Result [facility] [place] [address] documented in this encounter Visit Diagnoses Diagnosis Flank pain- Primary Abdominal pain, unspecified site documented in this encounter Care Teams Tempering Kiln Tender Relationship Specialty Start Date End Date Provider, None [place] PCP - General 07/14/22 documented as of this encounter
--- OUTSIDE RECORDS SUMMARY | 2025-01-01 12:28 | XMS_ITS | Referral Summary ---
Author Organization [facility] Address [address] [place] [address] Care Team Providers Care Harvest Contractor Name Role Phone Mauricio Cantu MD Unavailable [phone] No, Physician Primary Care Provider [phone] Encounters Date Type Department Care Team Description 11/14/2024 9:28 AM CDT - 11/14/2024 11:59 PM CDT Hospital Encounter [facility] [address] [place] [address] state, incidental Discharge Disposition: Discharge to home [...] often do you attend chur ch or hinduism services? Never 11/05/2022 Do you belong to any clubs o r organizations such as temple groups, unions, fraternal or athletic groups, or [...] staff should administer the PHQ-9) 0 11/04/2022 [facility] [place] of Occupat ional Health - Occupational Stress [...] place to sleep or slept in a snf (including now)? No 11/05/2022 Personal Safety Answer Date Recorded Getting School Help Needed Denies 09/03 Comments No Sex and Gender Information Value Date Recorded Sex Assigned at Not on file Legal Sex Female 12:12 PM CLASSIFIED AD CLERK Gender Identity Not on file Sexual Orientation Not on file Last Filed Vital Signs Vital Sign Reading Time Taken Comments Blood Pressure 108/76 01/31/2024 10:53 AM CDT Pulse 81 01/31/2024 10:53 AM CDT Temperature 35.7 C (96.2 F) 11/07/2022 8:20 AM CDT Respiratory Rate 18 01/31/2024 10:53 AM CDT Oxygen Saturation 99% 11/05/2022 7:56 AM CLASSIFIED AD CLERK Inhaled Oxygen Concentration - - Weight 51.7 [...] Morgan Kimble M.D. CH: JAD Report ID: [id number] Reading Location: [id number] Procedure Note Morgan Kimble Jr., MD - [...] Morgan Kimble M.D. CH: JAD Report ID: [id number] Reading Location: [place] [address] us Mauricio Cantu MD IMG OB US PROCEDURES F inal Result from Last 3 Months Insurance Advance Directives For more information, please contact: [phone] * Full Code (Latest Code Status on File) Date Activated Date Inactivated Comments 11/05/2022 9:25 AM 11/07/2022 8:22 PM * Full Code Date Activated Date Inactivated Comments 11/05/2022 2:04 AM 11/05/2022 9:25 AM Full CPR in case of cardiopulmonary arrest Care Teams Harvest Contractor Relationship Specialty Start Date End Date No, Physician PCP - General 10/11/24 Mauricio Cantu MD [address] [place] [address] [address] [address] Skidder Loader Obstetrics and Gynecology 11/07/22
--- OUTSIDE RECORDS SUMMARY | 2025-01-01 12:28 | XMS_ITS | Encounter Summary ---
Author Organization [employer] Care Team Providers Care Outsole Splicer Name Role Phone Provider, None Primary Care Provider Unavailabl e Encounter Details Date Type Department Care Team (Latest Contact Info) Description 01/01/2025 Travel Social History Tobacco Use Types Packs/Day Years [...] on file documented as of this encounter Plan of Treatment Not on file documented as of this encounter Visit Diagnoses Not on filedocumented in this encounter Care Teams Outsole Splicer Relationship Specialty Start Date End Date Provider, None ANNABEL PCP - General 07/14/22 documented as of this encounter
--- OUTSIDE RECORDS SUMMARY | 2025-01-01 12:28 | XMS_ITS | Clinical Summary ---
Author Organization [facility] Address [address] [place] [id number] Care Team Providers Care Cnc Wood Lathe Operator Name Role Phone None, Provider MD Primary Care Provider Unavaila ble Allergies No known active allergies Medications No known medications Active Problems Problem Noted Date Diagnosed Date Alcohol withdrawal ([facility]) 12/14/2018 Social History Tobacco Use Types Packs/Day Years Used Date Smoking Tobacco: Every Day Cigarettes Smokeless Tobacco: Never Tobacco Cessation:Ready to Q uit: No; Counseling Given: No Comments:per [facility] records Alcohol Use Standard Drinks/Week Comments Yes 0 (1 standard drink = 0.6 oz pure alcohol) patient records from [facility] states she drinks 1/2 gallon daily AUDIT-C Answer Date Recorded Frequency of Alcohol Consumption Never 12/14/2018 Average Number of Drinks Not on file 019 Frequency of Binge Drinking Not on file 11/26 Comments No Sex and Gender Information Value Date Recorded Sex Assigned at Female 12/14/2018 3:42 PM CDT Legal Sex Female 6:00 PM LOOPING INSPECTOR Gender Identity Female 12/14/2018 3:42 PM CDT [...] Every 3 Years 1993 Annual Physical 1996 Hepatitis C 2011 Hepatitis B Vaccines (1 of 3 - 19+ 3-dose series) 2012 Pneumococcal Vaccine: Pediat rics (0 to 5 Years) and At-Risk Patients (6 to 49 Years) (1 of 2 - PCV) 2012 Cervical Cancer Screening Pa p with [...] 1:32 PM 12/17/2018 10:31 PM Care Teams Cnc Wood Lathe Operator Relationship Specialty Start Date End Date None, Provider, PCP - General 12/17/18
--- OUTSIDE RECORDS SUMMARY | 2025-01-01 12:28 | XMS_ITS | Clinical Summary ---
Author Organization [facility] Address [address] [place] [phone] Phone Care Team Providers Care Manager Strategic Name Role Phone Provider, None Primary Care Provider Unavailabl e Allergies Active Allergy Reactions Criticality Noted Date Comments Lanolin Hives 01/01/2025 Latex Rash Medium 01/31/2024 Medications chlorhexidine (PERIDEX) 0.12 % SolutionIndicati ons:Dental infection 15 mL by Swish & Spit route 2 times daily. 473 mL 09/16/2024 Active Amoxicillin 500 MG Tablet Take 1 Tablet by mouth 2 times daily for 10 days. 20 Tablet 12/26/2024 Active Active Problems Estimated Date of Delivery Comme nts Yes 05/11/2025 No known active problems Encounters Date Type Department Care Team Description 01/01/2025 8:57 AM CDT - 01/01/2025 10:52 AM CDT Emergency [facility] Emergency [address] [place] [address] Maritza Andres APRN, TRAFFIC INSPECTOR Flank pain Discharge Disposition: Discharged to home or Selfcare 01/01/2025 Travel 12/26/2024 6:58 AM CDT - 12/26/2024 7:32 AM CDT Emergency [facility] Emergency [address] [place] [address] Buddy Sadler DO Dental infection Discharge Disposition: Discharged to home or Selfcare 12/26/2024 Travel from Last 3 Months Social History [...] Mass Index 22.86 01/01/2025 9:06 AM CDT Plan of Treatment Health Maintenance Due Date Last Done Comments Hepatitis C Virus (HCV) Screening 1993 Hepatitis B Immunization (1 of 3 - 19+ 3-dose series) 2012 Pneumococcal Immunization Combined (1 of 2 - PCV) 2012 Pap Smear 2014 Cervical Cancer Screening (CCS) 2023 HPV/Cotest 2023 SARS-COV-2 Immunization ( - season) 2024 Influenza Immunization (Seas on Ended) 2025 DTaP/Tdap/Td Immunization Discontinued 2021, 06/04/2013 TdaP Immunization Completed 08/09/2022, 06/04/2013 Human Papillomavirus (HPV) Immunization Aged Out No longer eligible based on patient's age to complete this topic Meningococcal Immunization (ACWY) Aged Out No longer eligible based on patient's age to complete this topic Respiratory Syncytial Virus (RSV) Immunization (Adult) (No Doses Required) Completed Rotavirus Immunization Aged Out No lo nger eligible based on patient's age to complete this topic Procedures Procedure Name Priority Date/Time Associated Diagnosis Comments URINALYSIS REFLEX IF INDICATED BY ABNORMAL RESULTS STAT 01/01/2025 9:41 AM CDT from Last 3 Months Results * (ABNORMAL) Urinalysis w/ Reflex (01/01/2025 9:41 AM CDT) SPECIFIC GRAVITY 1.005 1.003 - 1.030 01/01/2025 9:49 AM CDT [facility] URINE PH 7.0 5.0 - 9.0 01/01/2025 9:49 AM CDT [facility] WBC ESTERASE Negative Negative 01/01/2025 9:49 AM CDT [facility] NITRITE Negative Negative 01/01/2025 9:49 AM CDT [facility] PROTEIN, RANDOM URINE 15 mg/dL(A) Negative 01/01/2025 9:49 AM CDT [facility] URINE GLUCOSE, QUAL Negative Negative 01/01/2025 9:49 AM CDT [facility] URINE KETONES Negative Negative 01/01/2025 9:49 AM CDT [facility] UROBILINOGEN Normal Normal mg/dL 01/01/2025 9:49 AM CDT [facility] URINE BLOOD Negative Negative sal/ul 01/01/2025 9:49 AM CDT [facility] URINALYSIS COLOR Yellow 01/02/20 9:49 AM CDT [facility] URINALYSIS CLARITY Clear 01/01/2025 9:49 AM CDT [facility] Urine URINE SPECIMEN / Unknown Non-Phlebotomy Collection / Unknown 01/01/2025 9:41 AM CDT 01/01/2025 9:44 AM CDT us Maritza Andres DIVIDEND CLERK, TRAFFIC INSPECTOR URINE ORDERABLES F inal Result [facility] [place] [address] from Last 3 Months Insurance MEDICAID [employer] Care Teams Manager Strategic Relationship Specialty Start Date End Date Provider, None [place] PCP - General 07/14/22
--- OUTSIDE RECORDS SUMMARY | 2025-01-01 12:28 | XMS_ITS | Data Portability ---
Author Organization [facility] Karli Merrill Address [address] [place] [address] Care Team Providers Care Cosmetic Sales Name Role Phone ALYSSA DOUGLAS Telephone Appointment Clerk Assessment No assessment recorded. Plan of Treatment Reminders Order Date Submit Date Provider Last Modified By Organization Details Last Modified Time Details Appointments OB 15 2024 09:15A M Alyssa Douglas MD Not available Not available Not available Lab urinal ysis, dipsti ck 2024 025 [email or web address] Order, Internal Use Only DO Not Attach Compendium DO Not Attach Compendium, Do Not Delete/merge, [id number] 12/16/2024 13:08:09 urinal ysis, dipsti ck 2024 025 [email or web address] In-Office Order, Internal Use Only DO Not Attach Compendium DO Not Attach Compendium, Do Not Delete/merge, [id number] 11/11/2024 12:07:10 aneupl oidy risk and X & Y analys is, chromo some specif ic circul ating cell free (CCF) DNA, matern al serum 2024 025 [facility], 2022 Neil Chavarria, [address], [address], 11/15/2024 07:16:07 pregna ncy test, urine 2024 025 [email or web address] Order, Internal Use Only DO Not Attach Compendium DO Not Attach Compendium, Do Not Delete/merge, [id number] 10/10/2024 13:45:00 urinal ysis, dipsti ck 2024 025 In-Office Order, Internal Use Only DO Not Attach Compendium DO Not Attach Compendium, Do Not Delete/merge, [id number] 10/10/2024 13:45:00 hemogl obin (Hb) electr ophore sis, blood 2024 025 [facility], [address] [facility], [facility], [place], [address], 10/23/2024 07:17:47 HIV 1 + 2, meanin gful use set 2024 025 [email or web address], [address] [place] [address], [facility], [place], [address], 10/24/2024 08:36:06 varice lla zoster virus IgG Ab, QL, IA, serum 2024 025 [facility], [address] [facility], [facility], [place], [address], 10/23/2024 07:17:57 urinal ysis comple te, reflex cultur e 2024 025 [facility], [address] [place] [address], [facility], [place], [address], 10/23/2024 07:17:51 drug screen , urine 2024 025 [facility], [address] [place] [address], [facility], [place], [address], 10/23/2024 07:17:55 CFTR gene mutati ons found, blood or tissue 2024 025 [email or web address], [address] [facility], [facility], [place], [address], 10/24/2024 08:36:06 Hepati tis C IgG Ab, qual, serum 2024 025 [email or web address], [address] [facility], [facility], [place], [address], 10/24/2024 08:36:06 prenat al panel 2024 025 [facility], [address] [facility], [facility], [place], [address], 10/23/2024 07:17:49 spinal muscul ar atroph y (sma) mutati ons, blood/ tissue 2024 025 [facility], [address] [facility], [facility], [place], [address], 10/23/2024 07:17:53 chlamy china tracho matis + neisse hardy gonorr hoeae + tricho monas vagina lis rRNA panel, MARTY+pr obe 2024 025 [facility], [address] Neil [address]av[address], [address], [place], [address], 10/12/2024 07:13:40 vagina l pathog ens panel, MARTY+pr obe, vagina l fluid 2023 024 [facility], [address] Neil Chav[address], [address], [place], [address], 01/29/2024 11:11:58 mycopl asma genita lium DNA, qualit ative, PCR 2023 024 [facility], [address] Neil [address]av[address], [address], [place], [address], 01/29/2024 11:11:59 cytolo gy report , thin prep, smear or scrapi ng, cervic al or vagina l 2023 024 [facility], [address] Neil Chav[address], [address], [place], [address], 01/30/2024 16:12:14 Referral None record ed. Procedures None record ed. Surgeries None record ed. Imaging US, obstet abby, matern al evalua tion + anatom y 2024 025 [facility] [address], [place], [address], 12/16/2024 15:20:31 US, obstet abby, 2nd trimes ter 2024 025 [facility], [address] [facility] , [place], [address], 11/20/2024 13:38:18 Medication Orders drospi renone 3 mg-eth inyl estrad iol 0.02 mg tablet 2023 025 [facility], [address], [place], [address], 10/10/2024 12:09:59 Patient TargetsNo targets recorded. Patient Instructions Encounter Date Encounter Id Patient Instructions Last Modified By Organization Details Last Modified Time 11/30/2022 [id number] edinburgh depression scale* Not available 12/05/2022 22:29:59 01/25/2024 [id number] learning about healthy weight Not available 02/03/2024 22:13:51 10/10/2024 [id number] edinburgh depression scale* Not available 10/10/2024 13:48:22 [...] to 10 of your : care instructions Not available 10/10/2024 13:45:00 Reason for Referral None Reported. Results Created Date Observation Date Name Description Value Unit Range Abnormal Flag Note LastModifiedBy Organization Detail LastModifiedTime 11/02/19 23 11/01/2022 urina lysis , dipst [...] 23 11/01/2022 urina lysis , dipst ick Blood Negati ve Not Available In-Office Order Internal Use Only DO Not Attach Compendium DO Not Attach Compendium, Do Not Delete/merge, 11/01/2022 10:47:12 11/02/19 23 11/01/2022 urina lysis , dipst ick Specific [place] 1.020 Not Available In-Off ice Order Internal Use Only DO Not Attach Compendium DO Not Attach Compendium, Do Not Delete/merge, 11/01/2022 10:47:12 11/02/19 23 11/01/2022 urina lysis , dipst ick Ketone Negati ve Not Available In-Office Order Internal Use Only DO Not Attach Compendium DO Not Attach Compendium, Do Not Delete/merge, [id number] 11/01/2022 10:47:12 11/02/19 23 11/01/2022 urina lysis [...] DO Not Attach Compendium, Do Not Delete/merge, 12/05/2022 22:29:11 01/25/20 24 01/29/2024 NUSWA B VAGIN ITIS PLUS (VG+) atopobium vaginae LOW - 0 score Not Available [facility] ([facility]) [address] [facility], [place], [address], 01/29/2024 11:11:58 01/25/20 24 01/29/2024 NUSWA B VAGIN ITIS PLUS (VG+) bvab 2 LOW - 0 score Not Available [facility] ([facility]) [address] [place], [address], 01/29/2024 11:11:58 01/25/20 24 01/29/2024 NUSWA B VAGIN ITIS PLUS (VG+) megasphaera 1 LOW - 0 score Calcu late total score by britta stevenson the 3 indiv idual bacte rial vagin [...] prese nce of BV. Not Available [facility] ([facility]) [address] [place], [address], 01/29/2024 11:11:58 01/25/20 24 01/29/2024 NUSWA B VAGIN ITIS PLUS (VG+) stefan albicans, MARTY NEGATI VE negati ve Not Available [facility] ([facility]) [address] [place], [address], 01/29/2024 11:11:58 01/25/20 24 01/29/2024 NUA B VAGIN ITIS PLUS (VG+) stefan glabrata, MARTY NEGATI VE negati ve Not Available [facility] ([facility]) [address] [place], [address], 01/29/2024 11:11:58 01/25/20 24 01/29/2024 NUA B VAGIN ITIS PLUS (VG+) trich vag by MARTY NEGATI VE negati ve Not Available [facility] ([facility]) [address] [place], [address], 01/29/2024 11:11:58 01/25/20 24 01/29/2024 NUSWA B VAGIN ITIS PLUS (VG+) chlamydia trachomatis, MARTY NEGATI VE negati ve Not Available [facility] ([facility]) [address] [facility], [place], [address], 01/29/2024 11:11:58 01/25/20 24 01/29/2024 NUSWA B VAGIN ITIS PLUS (VG+) neisseria gonorrhoeae, MARTY NEGATI VE negati ve Not Available [facility] ([facility]) [address] [facility], [place], [address], 01/29/2024 11:11:58 01/25/20 24 01/29/2024 M GENIT ALIUM MARTY, SWAB mycoplasma genitalium MARTY NEGATI VE negati ve Not Available [facility] ([facility]) [address] [facility], [place], [address], 01/29/2024 11:11:59 01/25/20 24 01/26/2024 IGP, APTIM A HPV, RFX 16/18 ,45 HPV aptima NEGATI VE negati ve This nucle ic acid ampli ficat ion test detec ts fourt een high- risk HPV types (16,1 8,31, 33,35 ,39,4 5,51, 52,56 ,58,5 9,66, 68) witho ut diffe renti ation . Not Available [facility] ([facility]) [address] [facility], [place], [address], 01/30/2024 16:12:14 01/25/20 24 01/30/2024 IGP, APTIM A HPV, RFX 16/18 ,45 diagnosis: COMMEN T NEGAT NERY FOR INTRA EPITH ELIAL LESIO N OR MALFLORENTINO WETZEL . Not Available [facility] ([facility]) [address] [facility], [place], [address], 01/30/2024 16:12:14 01/25/20 24 01/30/2024 IGP, APTIM A HPV, RFX 16/18 ,45 specimen adequacy: COMMEN T Satis facto ry for evalu ation . Endoc ervic al and/o r squam ous metap lasti c cells (endo cervi nabor compo nent) are prese nt. Not Available [facility] ([facility]) [address] [place], [address], 01/30/2024 16:12:14 01/25/20 24 01/30/2024 IGP, APTIM A HPV, RFX 16/18 ,45 clinician provided ICD10: SOWMYA Courtney Z01.4 19 N89.8 Not Available [facility] ([facility]) [address] [place], [address], 01/30/2024 16:12:14 01/25/20 24 01/30/2024 IGP, APTIM A HPV, RFX 16/18 ,45 performed by: SOWMYA guerra, Cytot william courtney (ASCP ) Not Available [facility] ([facility]) [address] [place], [address], 01/30/2024 16:12:14 01/25/20 24 01/30/2024 IGP, APTIM A HPV, RFX 16/18 ,45 . . Not Available [facility] ([facility]) [address] [place], [address], 01/30/2024 16:12:14 01/25/20 24 01/30/2024 IGP, APTIM A HPV, RFX 16/18 ,45 note: SOWMYA Courtney The Pap smear is a scree marissa [...] ts do occur . Not Available [facility] ([facility]) [address] [place], [address], 01/30/2024 16:12:14 01/25/20 24 01/30/2024 IGP, APTIM A HPV, RFX 16/18 ,45 test methodology: - The Thin Prep( R) Image r was unabl e to read this speci men. There fore a bobby watson revie w was perfo rmed. Not Available [facility] ([facility]) [address] [place], [address], 01/30/2024 16:12:14 01/25/20 24 01/30/2024 IGP, APTIM A HPV, RFX 16/18 ,45 HPV genotype reflex COMMEN T Crite hardy not met, HPV Genot ype not perfo rmed. Not Available [facility] ([facility]) [address] [place], [address], 01/30/2024 16:12:14 10/10/19 25 10/11/2024 CT, NG, TRICH VAG BY MARTY chlamydia by MARTY NEGATI VE negati ve Not Available [facility] ([facility]) [address] [place], [address], 10/12/2024 07:13:40 10/10/19 25 10/11/2024 CT, NG, TRICH VAG BY MARTY gonococcus by MARTY NEGATI VE negati ve Not Available [facility] ([facility]) [address] [place], [address], 10/12/2024 07:13:40 10/10/19 25 10/11/2024 CT, NG, TRICH VAG BY MARTY trich vag by MARTY NEGATI VE negati ve Not Available [facility] ([facility]) [address] [place], [address], 10/12/2024 07:13:40 10/10/19 25 10/11/2024 HGB FRACT IONAT ION CASCA DE HGB F 0.3 % 0.0-2. 0 Not Available [facility] ([facility]) [address] [place], [address], 10/23/2024 07:17:47 10/10/1910/11/2024 HGB FRACT IONAT ION CASCA DE HGB A 97.1 % 96.4-9 8.8 Not Available [facility] ([facility]) [address] [facility], [place], [address], 10/23/2024 07:17:47 10/10/1910/11/2024 HGB FRACT IONAT ION CASCA DE HGB A2 2.6 % 1.8-3. 2 Not Available [facility] ([facility]) [address] [facility], [place], [address], 10/23/2024 07:17:47 10/10/1910/11/2024 HGB FRACT IONAT ION CASCA DE HGB S 0.0 % 0.0 Not Available [facility] ([facility]) [address] [facility], [place], [address], 10/23/2024 07:17:47 10/10/1910/11/2024 HGB FRACT IONAT ION CASCA DE interpretati [...] Alpha -Thal assem ia DNA Navin sis (#[id number]). Not Available [facility] ([facility]) [address] [facility], [place], [address], 10/23/2024 07:17:47 10/10/1910/11/2024 INTER PRETA TION: interpretati on: Commen t Not infec chava with HCV unles s early or acute infec tion is suspe cted (whic h may be delay ed in an immun ocomp romis ed indiv idual ), or other evide nce exist s to indic ate HCV infec tion. Not Available [facility] ([facility]) [address] [facility], [place], [address], 10/23/2024 07:17:48 10/10/19 25 10/11/2024 PREGN SHIVA, INITI AL SCREE N HBsAg screen NEGATI VE negati ve Not Available [facility] ([facility]) [address] [facility], [place], [address], 10/23/2024 07:17:49 10/10/19 25 10/11/2024 PREGN SHIVA, INITI AL SCREE N HCV Ab NON REACTI VE nonrea ctive Not Available [facility] ([facility]) [address] [facility], [place], [address], 10/23/2024 07:17:49 10/10/19 25 10/11/2024 PREGN SHIVA, INITI AL SCREE N RPR NON REACTI VE nonrea ctive Not Available [facility] ([facility]) [address] [facility], [place], [address], 10/23/2024 07:17:49 10/10/1910/11/2024 PREGN SHIVA, INITI AL SCREE N rubella antibodies, IgG 0.91 index immune >0.99 below low normal A secon d sampl e shoul d be colle cted and teste d no less than 2-4 weeks . Non-i mmune <0.90 Equiv ocal 0.90 - 0.99 Immun e >0.99 Not Available [facility] ([facility]) [address] [facility], [place], [address], 10/23/2024 07:17:49 10/10/1910/11/2024 PREGN SHIVA, INITI AL SCREE N ABO grouping O Not Available [facility] ([facility]) [address] [facility], [place], [address], 10/23/2024 07:17:49 10/10/19 25 10/11/2024 PREGN SHIVA, INITI AL SCREE N Rh factor POSITI VE Pleas e note: Prior recor ds for this patie nt's ABO / Rh type are not avail able for addit ional verif icati on. Not Available [facility] ([facility]) [address] [facility], [place], [address], 10/23/2024 07:17:49 10/10/19 25 10/11/2024 PREGN SHIVA, INITI AL SCREE N antibody screen NEGATI VE negati ve Not Available [facility] ([facility]) [address] [facility], [place], [address], 10/23/2024 07:17:49 10/10/19 25 10/11/2024 PREGN SHIVA, INITI AL SCREE N HIV Ab/P24 Ag screen NON REACTI VE nonrea ctive HIV-1 /HIV- 2 antib odies and HIV-1 p24 antig en were NOT detec chava. There is no labor atory evide nce of HIV infec tion. HIV Negat nery Not Available [facility] ([facility]) [address] [facility], [place], [address], 10/23/2024 07:17:49 10/10/19 25 10/11/2024 PREGN SHIVA, INITI AL SCREE N chlamydia trachomatis, MARTY NEGATI VE negati ve Not Available [facility] ([facility]) [address] [facility], [place], [address], 10/23/2024 07:17:49 10/10/19 25 10/11/2024 PREGN SHIVA, INITI AL SCREE N neisseria gonorrhoeae, MARTY NEGATI VE negati ve Not Available [facility] ([facility]) [address] [place], [address], 10/23/2024 07:17:49 10/10/19 25 10/11/2024 PREGN SHIVA, INITI AL SCREE N WBC 8.3 x10e3 /uL 3.4-10 .8 Not Available [facility] ([facility]) [address] [facility], [place], [address], 10/23/2024 07:17:49 10/10/1910/11/2024 PREGN SHIVA, INITI AL SCREE N RBC 4.54 x10e6 /uL 3.77-5 .28 Not Available [facility] ([facility]) [address] [facility], [place], [address], 10/23/2024 07:17:49 10/10/1910/11/2024 PREGN SHIVA, INITI AL SCREE N hemoglobin 14.3 g/dL 11.1-1 5.9 Not Available [facility] ([facility]) [address] [place], [address], 10/23/2024 07:17:49 10/10/1910/11/2024 PREGN SHIVA, INITI AL SCREE N hematocrit 43.0 % 34.0-4 6.6 Not Available [facility] ([facility]) [address] [place], [address], 10/23/2024 07:17:49 10/10/19 25 10/11/2024 PREGN SHIVA, INITI AL SCREE N MCV 95 fL 79-97 Not Available [facility] ([facility]) [address] [place], [address], 10/23/2024 07:17:49 10/10/1910/11/2024 PREGN SHIVA, INITI AL SCREE N MCH 31.5 pg 26.6-3 3.0 Not Available [facility] ([facility]) [address] [place], [address], 10/23/2024 07:17:49 10/10/19 25 10/11/2024 PREGN SHIVA, INITI AL SCREE N MCHC 33.3 g/dL 31.5-3 5.7 Not Available [facility] ([facility]) [address] [place], [address], 10/23/2024 07:17:49 10/10/1910/11/2024 PREGN SHIVA, INITI AL SCREE N RDW 11.2 % 11.7-1 5.4 below low normal Not Available [facility] ([facility]) [address] [facility], [place], [address], 10/23/2024 07:17:49 10/10/19 25 10/11/2024 PREGN SHIVA, INITI AL SCREE N platelets 262 x10e3 /uL 150-45 0 Not Available [facility] ([facility]) [address] [facility], [place], [address], 10/23/2024 07:17:49 10/10/1910/11/2024 PREGN SHIVA, INITI AL SCREE N neutrophils 61 % notest ab. Not Available [facility] ([facility]) [address] [facility], [place], [address], 10/23/2024 07:17:49 10/10/1910/11/2024 PREGN SHIVA, INITI AL SCREE N lymphs 28 % notest ab. Not Available [facility] ([facility]) [address] [facility], [place], [address], 10/23/2024 07:17:49 10/10/1910/11/2024 PREGN SHIVA, INITI AL SCREE N monocytes 9 % notest ab. Not Available [facility] ([facility]) [address] [facility], [place], [address], 10/23/2024 07:17:49 10/10/1910/11/2024 PREGN SHIVA, INITI AL SCREE N eos 1 % notest ab. Not Available [facility] ([facility]) [address] [facility], [place], [address], 10/23/2024 07:17:49 10/10/19 25 10/11/2024 PREGN SHIVA, INITI AL SCREE N basos 0 % notest ab. Not Available [facility] ([facility]) [address] [facility], [place], [address], 10/23/2024 07:17:49 10/10/1910/11/2024 PREGN SHIVA, INITI AL SCREE N neutrophils (absolute) 5.1 x10e3 /uL 1.4-7. 0 Not Available [facility] ([facility]) [address] [facility], [place], [address], 10/23/2024 07:17:49 10/10/1910/11/2024 PREGN SHIVA, INITI AL SCREE N lymphs (absolute) 2.3 x10e3 /uL 0.7-3. 1 Not Available [facility] ([facility]) [address] [place], [address], 10/23/2024 07:17:49 10/10/1910/11/2024 PREGN SHIVA, INITI AL SCREE N monocytes(ab solute) 0.8 x10e3 /uL 0.1-0. 9 Not Available [facility] ([facility]) [address] [place], [address], 10/23/2024 07:17:49 10/10/1910/11/2024 PREGN SHIVA, INITI AL SCREE N eos (absolute) 0.1 x10e3 /uL 0.0-0. 4 Not Available [facility] ([facility]) [address] [place], [address], 10/23/2024 07:17:49 10/10/1910/11/2024 PREGN SHIVA, INITI AL SCREE N baso (absolute) 0.0 x10e3 /uL 0.0-0. 2 Not Available [facility] ([facility]) [address] [place], [address], 10/23/2024 07:17:49 10/10/1910/11/2024 PREGN SHIVA, INITI AL SCREE N immature granulocytes 1 % notest ab. Not Available [facility] ([facility]) [address] [facility], [place], [address], 10/23/2024 07:17:49 10/10/19 25 10/11/2024 PREGN SHIVA, INITI AL SCREE N immature grans (abs) 0.0 x10e3 /uL 0.0-0. 1 Not Available [facility] ([facility]) [address] [place], [address], 10/23/2024 07:17:49 10/10/1910/11/2024 PREGN SHIVA, INITI AL SCREE N specific gravity 1.009 1.005- 1.030 Not Available [facility] ([facility]) [address] [place], [address], 10/23/2024 07:17:49 10/10/19 25 10/11/2024 PREGN SHIVA, INITI AL SCREE N pH 6.5 5.0-7. 5 Not Available [facility] ([facility]) [address] [place], [address], 10/23/2024 07:17:49 10/10/19 25 10/11/2024 PREGN SHIVA, INITI AL SCREE N urine-color YELLOW yellow Not Available [facility] ([facility]) [address] [place], [address], 10/23/2024 07:17:49 10/10/19 25 10/11/2024 PREGN SHIVA, INITI AL SCREE N appearance CLEAR clear Not Available [facility] ([facility]) [address] [place], [address], 10/23/2024 07:17:49 10/10/19 25 10/11/2024 PREGN SHIVA, INITI AL SCREE N WBC esterase NEGATI VE negati ve Not Available [facility] ([facility]) [address] [facility], [place], [address], 10/23/2024 07:17:49 10/10/19 25 10/11/2024 PREGN SHIVA, INITI AL SCREE N protein NEGATI VE negati ve/tra ce Not Available [facility] ([facility]) [address] [facility], [place], [address], 10/23/2024 07:17:49 10/10/19 25 10/11/2024 PREGN SHIVA, INITI AL SCREE N glucose NEGATI VE negati ve Not Available [facility] ([facility]) [address] [place], [address], 10/23/2024 07:17:49 10/10/1910/11/2024 PREGN SHIVA, INITI AL SCREE N ketones NEGATI VE negati ve Not Available [facility] ([facility]) [address] [place], [address], 10/23/2024 07:17:49 10/10/19 25 10/11/2024 PREGN SHIVA, INITI AL SCREE N occult blood NEGATI VE negati ve Not Available [facility] ([facility]) [address] [place], [address], 10/23/2024 07:17:49 10/10/19 25 10/11/2024 PREGN SHIVA, INITI AL SCREE N bilirubin NEGATI VE negati ve Not Available [facility] ([facility]) [address] [place], [address], 10/23/2024 07:17:49 10/10/19 25 10/11/2024 PREGN SHIVA, INITI AL SCREE N urobilinogen ,semi-qn 0.2 mg/dL 0.2-1. 0 Not Available [facility] ([facility]) [address] [place], [address], 10/23/2024 07:17:49 10/10/19 10/11/2024 PREGN SHIVA, INITI AL SCREE N nitrite, urine NEGATI VE negati ve Not Available [facility] ([facility]) [address] [facility], [place], [address], 10/23/2024 07:17:49 10/10/19 25 10/11/2024 PREGN SHIVA, INITI AL SCREE N microscopic examination COMMEN T Micro scopi c follo ws if indic ated. Not Available [facility] ([facility]) [address] [facility], [place], [address], 10/23/2024 07:17:49 10/10/19 25 10/11/2024 PREGN SHIVA, INITI AL SCREE N microscopic examination SEE BELOW: Micro scopi c was indic ated and was perfo rmed. Not Available [facility] ([facility]) [address] [facility], [place], [address], 10/23/2024 07:17:49 10/10/19 25 10/12/2024 PREGN SHIVA, INITI AL SCREE N urine culture,pren atal, w/gbs FINAL REPORT Not Available [facility] ([facility]) [address] [facility], [place], [address], 10/23/2024 07:17:49 10/10/19 25 10/11/2024 MICRO SCOPI C EXAMI NATIO N WBC 0-5 /hpf 0-5 Not Available [facility] ([facility]) [address] [facility], [place], [address], 10/23/2024 07:17:51 10/10/19 25 10/11/2024 MICRO SCOPI C EXAMI NATIO N RBC 0-2 /hpf 0-2 Not Available [facility] ([facility]) [address] [facility], [place], [address], 10/23/2024 07:17:51 10/10/19 25 10/11/2024 MICRO SCOPI C EXAMI NATIO N epithelial cells (non renal) 0-10 /hpf 0-10 Not Available [facility] ([facility]) [address] [facility] [facility], [place], [address], 10/23/2024 07:17:51 10/10/19 25 10/11/2024 MICRO SCOPI C EXAMI NATIO N casts None seen /lpf nonese en Not Available [facility] ([facility]) [address] [facility], [place], [address], 10/23/2024 07:17:51 10/10/19 25 10/11/2024 MICRO SCOPI C EXAMI NATIO N bacteria None seen nonese en/few Not Available [facility] ([facility]) [address] [facility] [facility], [place], [address], 10/23/2024 07:17:51 10/10/19 25 10/11/2024 UA/M W/RFL X CULTU RE, ROUTI NE urinalysis reflex COMMEN T This speci men will not refle x to a Urine Cultu re. Not Available [facility] ([facility]) [address], [place], [address], 10/23/2024 07:17:51 10/10/19 25 10/22/2024 CYSTI C FIBRO SIS, 97 VARIA NTS ethnicity Commen t Not Provi ded Not Available [facility] ([facility]) [address] [place], [address], 10/23/2024 07:17:52 10/10/19 25 10/22/2024 CYSTI C FIBRO SIS, 97 VARIA NTS specimen type Commen t Whole Blood Not Available [facility] ([facility]) [address] [place], [address], 10/23/2024 07:17:52 10/10/19 25 10/22/2024 CYSTI C FIBRO SIS, 97 VARIA NTS indication Commen t Carolina er Test / Scree marissa Not Available [facility] ([facility]) [address] [facility] [facility], [place], [address], 10/23/2024 07:17:52 10/10/1910/22/2024 CYSTI C FIBRO SIS, 97 VARIA NTS result: Commen t NEGAT NERY Not Available [facility] ([facility]) [address] [facility], [place], [address], 10/23/2024 07:17:52 10/10/1910/22/2024 CYSTI C FIBRO SIS, [...] olivier n Table . Not Available [facility] ([facility]) [address] [facility], [place], [address], 10/23/2024 07:17:52 10/10/1910/22/2024 CYSTI C FIBRO SIS, [...] are avail able. To acces s [facility] Couns caridad fritz e visit [email or web address] :[email or web address] orp.c om/ge netic -coun daya stevenson or call [phone] -CA S ([phone]). Not Available [facility] ([facility]) [address] [facility], [place], [address], 10/23/2024 07:17:52 10/10/1910/22/2024 CYSTI C FIBRO SIS, [...] (PMID :[id number]) . Not Available [facility] ([facility]) [address] [facility], [place], [address], 10/23/2024 07:17:52 10/10/1910/22/2024 CYSTI C FIBRO SIS, [...] d is avail able at [email or web address] :[email or web address] [email or web address] orp.c om. Not Available [facility] ([facility]) [address] [facility], [place], [address], 10/23/2024 07:17:52 10/10/1910/22/2024 CYSTI C FIBRO SIS, 97 VARIA NTS methods/limi tations Commen t Next- gener ation Seque ncing (NGS) : Genom ic regio ns of inter est in the CFTR gene are selec chava using the Sproutling ience (R) hybri dizat ion captu re metho d and seque nced via the Illum alex(R ) NGS platf orm. Seque ncing reads [...] detec tion is perfo rmed by ADIEL Ruiz [facility] Gen[employer] and in-ho use algor ithms . Confi rmato ry testi ng is done by Shireen hawley seque ncing . Varia nts are speci fied using the numbe ring and nomen clatu re recom edson d by the Human Genom e Varia tion Socie ty (HGVS , http: //www .hgvs .org/ ). Varia nt class ifica tion and confi rmati on are consi stent with ACMG stand ards and guide lines (Rich ards, PMID: 03379 [id number]; Britney, PMID: 00548 774). Navin sis is restr icted to 97 targe chava CF varia nts, liste d below . c.54- 5940_ 273+1 0250d el21k [...] e darren cteri stics deter mined by [employer] rp. It has not been clear ed or appro ronny by the Food and Drug Admin istra tion. Not Available [facility] ([facility]) [address], [place], [address], 10/23/2024 07:17:52 10/10/1910/22/2024 CYSTI C FIBRO SIS, [...] ve risk estim ates. Not Available [facility] ([facility]) [address] [facility], [place], [address], 10/23/2024 07:17:52 10/10/19 25 10/22/2024 CYSTI C FIBRO SIS, 97 VARIA NTS references Commen t Brenda herman JL, Manuel encarnacion C, Bea ng GR et al. CFTR varia nt testi ng: a techn ical stand mercedes of the [facility] Medic al Marquez ics and Genom ics ([facility] ). Marquez Med 22, 1978 (2020 ). PMID: [id number] Jeanine T, Soham moffett SG, Mandeep brink BA, et al. Cysti c Fibro sis and Conge nital Absen ce of the Vas Defer ens. 2000 [Upda chava 2016Sep 29]. In: Jos MP, Shayna reyes HH, Robert RA, et al., jair willis. GeneR candelario guerra(R) [Inte rnet] . PMID: 10112 428 Not Available [facility] ([facility]) [address] [facility], [place], [address], 10/23/2024 07:17:52 10/10/19 25 10/22/2024 CYSTI C FIBRO SIS, 97 VARIA NTS director review/relea se Commen t [place] nent Type Perfo rmed At Labor atory Direc tor Techn ical Labor atory Sai Bone , compo nent, Corpo ratio n of , PhD [facility], [address] [place], [address] Techn ical Labor atory Sai Bone , compo nent, Corpo ratio n of , PhD navin [facility], [address] , [place], [address] Profe john al Labor atory Armanod merrill, compo nent Corpo ratio n of PhD, [facility], [address], [place], [address] Elect celso harvey relea sed by Armando merrill, PhD, [employer] Not Available [facility] ([facility]) [address] [facility], [place], [address], 10/23/2024 07:17:52 10/10/19 25 10/22/2024 CYSTI C FIBRO SIS, 97 VARIA NTS pdf . Not Available [facility] ([facility]) [address] [facility], [place], [address], 10/23/2024 07:17:52 10/10/19 25 10/16/2024 SPINA L MUSCU LAR ATROP HY (SMA) ethnicity COMMEN T Not Provi ded Not Available [facility] ([facility]) [address] [place], [address], 10/23/2024 07:17:53 10/10/1910/16/2024 SPINA L MUSCU LAR ATROP HY (SMA) specimen type COMMEN T Whole Blood Not Available [facility] ([facility]) [address] [place], [address], 10/23/2024 07:17:53 10/10/1910/16/2024 SPINA L MUSCU LAR ATROP HY (SMA) indication COMMEN T Carolina er Test / Scree marissa Not Available [facility] ([facility]) [address] [facility], [place], [address], 10/23/2024 07:17:53 10/10/1910/16/2024 SPINA L MUSCU LAR ATROP HY (SMA) result: COMMEN T NEGAT NERY Not Available [facility] ([facility]) [address] [place], [address], 10/23/2024 07:17:53 10/10/1910/16/2024 SPINA L MUSCU LAR [...] affec chava pregn shiva. Not Available [facility] ([facility]) [address] [facility], [place], [address], 10/23/2024 07:17:53 10/10/19 25 10/16/2024 SPINA L MUSCU LAR ATROP HY (SMA) recommendati ons COMMEN T If the above resul t is posit nery, marquez ic couns toroguillermo is recom edson d to discu ss the poten tial clini nabor and/o r repro ducti ve impli catio ns, as well as recom menda tions for testi ng famil y membe rs and, when appli cable , this indiv idual 's partn er. Marquez ic couns avelino servi jodie are avail able. To acces s [facility] Couns dadaors pleas e visit [email or web address] :[email or web address] .[facility] orp.c om/ge netic -coun daya g or call [phone] [phone] ([phone]). Not Available [facility] ([facility]) [address], [place], [address], 10/23/2024 07:17:53 10/10/1910/16/2024 SPINA L MUSCU LAR [...] decre ased movem ent. (Ela lira, PMID: [id number]). Treat ment is suppo rtive . Manav larsen thera pies may be avail able for some indiv idual s. Appro ximat uriah 94% of affec chava indiv idual s have 0 copie s of the SMN1 gene; in these indiv idual s, an incre ase in the numbe r of copie s of the SMN2 gene corre lates with reduc ed disea se sever ity (Lisa Dodd, PMID: [id number]). Indiv idual s with one copy [...] carolina er (2+0) . Not Available [facility] ([facility]) [address] [facility], [place], [address], 10/23/2024 07:17:53 10/10/1910/16/2024 SPINA L MUSCU LAR ATROP HY (SMA) comments COMMEN T This inter preta tion is based on the clini nabor infor matio n provi ded and the curre nt under stand ing of the molec ular marquez ics of the disor miri(s ) teste d. Infor matio n about the disor miri(s ) teste d is avail able at https :[email or web address] mensh ealth .[email or web address] [email or web address] om. Not Available [facility] ([facility]) [address] [facility], [place], [address], 10/23/2024 07:17:53 10/10/1910/16/2024 SPINA L MUSCU LAR ATROP HY (SMA) methods/limi tations COMMEN T Spina l muscu lar atrop hy: The copy numbe r of SMN1 exon 7 is asses sed relat nery to inter nal stand mercedes refer ence genes by quant itati ve polym erase chain react ion (qPCR ). A rk villa al algor ithm calcu lates 0, 1, [...] allel ic discr imina tion qPCR targe evan c.*3+ 80T>G in SMN1 is perfo rmed. [...] e darren cteri stics deter mined by Esote marissa [facility] [employer]. It has not been clear ed or appro ronny by the Food and Drug Admin istra tion. [employer] is a subsi diary of [employer] Corpo ratio n of Harjinder roberts, using the brand StyleJam rp. Not Available [facility] ([facility]) [address] [facility], [place], [address], 10/23/2024 07:17:53 10/10/19 25 10/16/2024 SPINA L [...] 80T c.*3+ 80T >G SNP >G SNP Ashke hossein 92.8% 1 in High 1 in 1 in i 67 risk 918 5400 Jewis h 93.6% 1 in High 1 in 1 in 59 risk 907 5600 Black 90.3% 1 in 1 in 34 1 in 1 in 72 375 4200 Hispa nelly 92.6% 1 in 1 in 1 in 1 in 68 256 715 4967 White 95.0% 1 in 1 in 29 [...] detec chava in this assay Reese. PMID 60226 082 ; Charbel. PMID 53395 250 ; Sugar man . PMID 29692 307 Not Available [facility] ([facility]) [address] [facility], [place], [address], 10/23/2024 07:17:53 10/10/1910/16/2024 SPINA L MUSCU LAR ATROP HY (SMA) references COMMEN T Brenda herman JL, Manuel encarnacion C, Dulce Maria Sommer et al. Adden dum: Techn ical stand ards and guide lines for spina l muscu lar atrop hy testi ng. Marquez Med 23, 8545 (2020 ). [Adde ndum to PMID: 60742 580] Prior TW, Felicia ME, Karen Joyner. Spina l Muscu lar Atrop hy. 1999Oct 21 (Upda chava 2019Aug 26). In: Jos MP, Shayna reyes HH, Robert RA, et al., jair willis. GeneR candelario guerra(R) [Inte rnet] . PMID: 95842 526 Not Available [facility] ([facility]) [address], [place], [address], 10/23/2024 07:17:53 10/10/1910/16/2024 SPINA L MUSCU LAR ATROP HY (SMA) director review/relea se COMMEN T [place] nent Type Perfo rmed At [employer] Dire tor Techn ical Esote marissa Marquez ic Brook Warner, PhD, compo nent, Labor atori Agillic, [employer]ango [employer], [facility] proce ssing [address] , [place], [address] Techn ical Esote marissa Marquez nupur Warner, PhD, compo nent, Labor atori Agillic, [employer], [employer] navin sis [address] , [place], [address] Profe john al Esote marissa [facility]quez ic Brook Warner, PhD, compo nent Labor atori Agillic, [employer], [facility] [address] [place], [address] Elect celso harvey relea sed by Ramona Martino, PhD, [employer] Not Available [facility] ([facility]) [address] [place], [address], 10/23/2024 07:17:53 10/10/1922 1010/16/2024 SPINA L MUSCU LAR ATROP HY (SMA) pdf . Not Available [facility] ([facility]) [address] [facility], [place], [address], 10/23/2024 07:17:53 10/10/19 25 10/11/2024 [id number] 9 10 DRUG- BUND amphetamines , urine NEGATI VE NG/mL cutoff =1000 Amphe tamin e test inclu christine Amphe tamin e and Metha mphet amine . Not Available [facility] ([facility]) [address] [facility], [place], [address], 10/23/2024 07:17:54 10/10/19 25 10/11/2024 [id number] 9 10 DRUG- BUND barbiturates NEGATI VE NG/mL cutoff =200 Not Available [facility] ([facility]) [address] [place], [address], 10/23/2024 07:17:54 10/10/19 25 10/11/2024 [id number] 9 10 DRUG- BUND benzodiazepi graciela NEGATI VE NG/mL cutoff =200 Not Available [facility] ([facility]) [address] [place], [address], 10/23/2024 07:17:54 10/10/19 25 10/11/2024 [id number] 9 10 DRUG- BUND cannabinoid SEE FINAL RESULT S Not Available [facility] ([facility]) [address] [place], [address], 10/23/2024 07:17:54 10/10/19 25 10/11/2024 [id number] 9 10 DRUG- BUND cocaine (metab.) NEGATI VE NG/mL cutoff =300 Not Available [facility] ([facility]) [address] [place], [address], 10/23/2024 07:17:54 10/10/19 25 10/11/2024 [id number] 9 10 DRUG- BUND methaqualone NEGATI VE NG/mL cutoff =300 Not Available [facility] ([facility]) [address] [facility], [place], [address], 10/23/2024 07:17:54 10/10/19 25 10/11/2024 [id number] 9 10 DRUG- BUND opiates NEGATI VE NG/mL cutoff =2000 Opiat e test inclu christine Codei ne and Morph ine only. Not Available [facility] ([facility]) [address] [facility], [place], [address], 10/23/2024 07:17:54 10/10/19 25 10/11/2024 [id number] 9 10 DRUG- BUND phencyclidin e NEGATI VE NG/mL cutoff =25 Not Available [facility] ([facility]) [address] [facility], [place], [address], 10/23/2024 07:17:54 10/10/19 25 10/11/2024 54056 9 10 DRUG- BUND methadone screen, urine NEGATI VE NG/mL cutoff =300 Not Available [facility] ([facility]) [address] [facility], [place], [address], 10/23/2024 07:17:54 10/10/1910/11/2024 [id number] 9 10 DRUG- BUND propoxyphene , urine NEGATI VE NG/mL cutoff =300 Eff ectiv e November 25, 2024, this test will be disco ntinu ed. Pleas e conta ct your [facility] repre senta tive for sugge sted repla cemen t test optio ns. Not Available [facility] ([facility]) [address] [facility], [place], [address], 10/23/2024 07:17:54 10/10/1910/14/2024 CANNA BINOI D CONFI RMATI ON, UR cannabinoid Positi ve cutoff =50 abnormal Not Available [facility] ([facility]) [address] [place], [address], 10/23/2024 07:17:56 10/10/19 25 10/14/2024 BRUNILDALeslee ANA Shirley CONFI RMATI ON, UR carboxy THC conf, MS, ur 42 NG/mL cutoff =15 Not Available [facility] ([facility]) [address] [facility], [place], [address], 10/23/2024 07:17:56 10/10/19 25 10/12/2024 RESUL T result 1 Commen t Mixed uroge nital michelle 10,00 0-25, 000 colon y formi ng units per mL Not Available [facility] ([facility]) [address] [facility], [place], [address], 10/23/2024 07:17:56 10/10/19 25 10/11/2024 VARIC SHARRI- [...] not been acqui red. Not Available [facility] ([facility]) [address] [facility], [place], [address], 10/23/2024 07:17:57 10/10/1910/10/2024 edinb urgh postn atal depre ssion scale * Score 7 Not Available In-Office Order Internal Use Only DO Not Attach Compendium DO Not Attach Compendium, Do Not Delete/merge, [id number] 10/10/2024 13:48:04 10/10/1910/10/2024 pregn shiva test, urine HCG positi ve Not Available In-Office Order Internal Use Only DO Not Attach Compendium DO Not Attach Compendium, Do Not Delete/merge, [id number] 10/10/2024 12:23:59 10/10/19 25 10/10/2024 urina lysis [...] 25 10/10/2024 urina lysis , dipst ick Blood Negati ve Not Available In-Office Order Internal Use Only DO Not Attach Compendium DO Not Attach Compendium, Do Not Delete/merge, 10/10/2024 12:15:15 10/10/19 25 10/10/2024 urina lysis , dipst ick Specific [place] 1.020 Not Available In-Off ice Order Internal Use Only DO Not Attach Compendium DO Not Attach Compendium, Do Not Delete/merge, 10/10/2024 12:15:15 10/10/19 25 10/10/2024 urina lysis , dipst ick Ketone Negati [...] 25 10/10/2024 urina lysis , dipst ick Glucose Negati [...] 25 10/10/2024 urina lysis , dipst ick Color Yellow Not Available In-Office Order Internal Use Only DO Not Attach Compendium DO Not Attach Compendium, Do Not Delete/merge, 10/10/2024 12:15:15 11/12/1911/14/2024 MATER NIT21 PLUS CORE pdf . Not Available [facility] ([facility]) [address] [facility], [place], [address], 11/15/2024 07:16:07 11/12/19 25 11/15/2024 MATER NIT21 PLUS CORE gestation SINGLE TON Not Available [facility] ([facility]) [address] [facility], [place], [address], 11/15/2024 07:16:07 11/12/19 25 11/15/2024 MATER NIT21 PLUS CORE fraction 19% Not Available [facility] ([facility]) [address] [facility], [place], [address], 11/15/2024 07:16:07 11/12/19 25 11/15/2024 MATER NIT21 PLUS CORE gestational age > or = 9W: YES Not Available [facility] ([facility]) [address] [place], [address], 11/15/2024 07:16:07 11/12/19 25 11/15/2024 MATER NIT21 PLUS CORE test result NEGATI VE Not Available [facility] ([facility]) [address] [place], [address], 11/15/2024 07:16:07 11/12/19 25 11/15/2024 MATER NIT21 PLUS CORE lab engineer comments SOWMYA Hatfield speci men showe d an expec chava repre senta tion of chrom osome 21, 18 and 13 mater ial. Clini nabor corre latio n is sugge sted. Not Available [facility] ([facility]) [address] [facility], [place], [address], 11/15/2024 07:16:07 11/12/19 25 11/15/2024 MATER NIT21 PLUS CORE approved by SOWMYA cruz MD, PhD, [facility], [facility] atori es Not Available [facility] ([facility]) [address] [place], [address], 11/15/2024 07:16:07 11/12/19 25 11/15/2024 MATER NIT21 PLUS CORE trisomy 21 (down syndrome) NEGATI VE Not Available [facility] ([facility]) [address] [place], [address], 11/15/2024 07:16:07 11/12/19 25 11/15/2024 MATER NIT21 PLUS CORE trisomy 18 (mensah syndrome) NEGATI VE Not Available [facility] ([facility]) [address] [place], [address], 11/15/2024 07:16:07 11/12/19 25 11/15/2024 MATER NIT21 PLUS CORE trisomy 13 (patau syndrome) NEGATI VE Not Available [facility] ([facility]) [address] [place], [address], 11/15/2024 07:16:07 11/12/19 25 11/15/2024 MATER NIT21 PLUS CORE sex COMMEN T Consi stent with Femal e Not Available [facility] ([facility]) [address] [facility], [place], [address], 11/15/2024 07:16:07 11/12/19 25 11/15/2024 MATER NIT21 PLUS CORE negative predictive value NOTE The Negat nery Predi ctive Value (NPV) for triso my 21, 18, and 13 is great er than 99%. The NPV for SCA and ESS canno t be calcu lated as SCA and ESS are only repor chava when an abnor malit y is detec chava. Not Available [facility] ([facility]) [address] [facility], [place], [address], 11/15/2024 07:16:07 11/12/19 25 11/15/2024 MATER NIT21 PLUS CORE positive predictive value N/A Not Available [facility] ([facility]) [address] [facility], [place], [address], 11/15/2024 07:16:07 11/12/19 25 11/15/2024 MATER NIT21 PLUS CORE about the test [...] yet been valid ated. Not Available [facility] ([facility]) [address] [place], [address], 11/15/2024 07:16:07 11/12/1911/15/2024 MATER NIT21 PLUS CORE test method COMMEN T See Notes Circu latin g cell- free DNA was purif ied from the plasm a compo nent of mater nal blood . The extra cted DNA was then conve rted into a [place] ic DNA veronica ry for aneup loidy navin [...] s 16 and 22. Not Available [facility] ([facility]) [address] [facility], [place], [address], 11/15/2024 07:16:07 11/12/19 25 11/15/2024 MATER NIT21 PLUS CORE performance COMMEN T The perfo rmanc e darren cteri stics of the Mater niT(R ) 21 PLUS labor atory -deve loped test (LDT) have been deter mined in a clini nabor valid ation study with pregn ant women at incre ased risk for chrom osoma l aneup loidy .[1-4 ] Not Available [facility] ([facility]) [address] [facility], [place], [address], 11/15/2024 07:16:07 11/12/1911/15/2024 MATER NIT21 PLUS CORE performance characterist ics NOTE ----- ----- ----- ----- ----- ----- ----- ----- ----- ----- ----- ---- ! Sex ! Vishal bruno: 99.4% ! !---- ----- ----- ----- ----- ----- ----- ----- ----- ----- ----- ---! ! Karma n (trip shirley syndr ome) ! Est. Sens# ! Est. Spec ! !---- ----- ----- ----- ----- ----- ----- ----- ----- ----- ----- ---! ! Myrna my 21 (Rehan Syndr ome) ! 99.1% ! 99.9% ! !---- ----- ----- ----- ----- ----- ----- ----- ----- ----- ----- ---! ! Myrna my 18 (Veronica mcgregor Syndr ome) ! >99.9 % ! 99.6% ! !---- ----- ----- ----- ----- ----- ----- ----- ----- ----- ----- ---! ! Myrna my 13 (Patleslee u Syndr ome) ! 91.7% ! 99.7% ! !---- ----- ----- ----- ----- ----- ----- ----- ----- ----- ----- ---! ! Sex Chrom osome Miguel Ángel saenz es## ! 96.2% ! 99.7% ! !---- ----- ----- ----- ----- ----- ----- ----- ----- ----- ----- ---! * As repor chava in ISCA datab ase nstd3 7 [http s://w antoinette.nc bi.nl .nih .gov/ dbvar /stud ies/n std37 / ] [...] eton gesta tion only. Not Available [facility] ([facility]) [address] [facility], [place], [address], 11/15/2024 07:16:07 11/12/19 25 11/15/2024 MATER NIT21 [...] discu ssed with a quali fied healt hcare provi miri. Pregn shiva manag ement decis ions, inclu ding termi natio n of the pregn shiva, shoul d not be based on the resul ts of these tests alone . The healt hcare provi miri is respo nsibl e for the use of this infor matio n in the manag ement of their patie nt. Sex chrom osoma l aneup loidi es are not repor table for known multi ple gesta tions . A negat nery resul t does not ensur e an [...] and Fragm in(R) ). Not Available [facility] ([facility]) [address] [facility], [place], [address], 11/15/2024 07:16:07 11/12/1911/15/2024 MATER NIT21 PLUS CORE note COMMEN T See Notes [employer] is a subsi diary of Labor atory Corpo ratio n of Harjinder Reynolds ngs, using the brand [facility]. This test was devel oped and its perfo rmanc e darren cteri stics deter mined by [facility]. It has not been clear ed or appro ronny by the Food and Drug Admin istra tion. This labor atory is certi fied under the Clini nabor Labor atory Impro vemen t Amend ments (CLIA ) as quali fied to perfo rm high compl exity clini nabor labor atory testi ng and accre dited by the Trevor layton of Ameri can Patho logis ts (CAP) . If there is futur e clini nabor need for addin g Mater niT GENOM E testi ng, this speci men will be avail able until term. [facility] sampl es will not be retai phuc beyon d 60 days. [facility] patie nts will have to send a new sampl e for re-se quenc ing ([facility] Test Code: 43098 4). Not Available [facility] ([facility]) [address] [facility], [place], [address], 11/15/2024 07:16:07 11/12/1911/15/2024 MATER NIT21 PLUS CORE references COMMEN T 1. Rommel LAYTON, et al. Marquez Med. 2012; 14(3) :296- 305. 2. Navi MCGEE, et al. Prena t Diag. 2013; 33(6) :591- 597. 3. Jasmine C, et al. Clin Chem. 2015 Nov;6 1(4): 608-6 16. 4. Rommel LAYTON, et al. [facility] Med. 2011; 13(11 ):913 -920. 5. ACOG/ SM Pract ice Bulle tin No. 226, May 2020. Not Available [facility] ([facility]) [address] [facility], [place], [address], 11/15/2024 07:16:07 11/12/19 25 11/11/2024 urina lysis , dipst ick Leukocytes Negati [...] 25 11/11/2024 urina lysis , dipst ick Urobilinogen .2 [...] 11/11/2024 urina lysis , dipst ick Specific [place] 1.015 Not Available In-Off ice Order Internal [...] Attach Compendium, Do Not Delete/merge, 11/08/2024 08:27:09 12/17/19 25 12/16/2024 urina lysis , dipst ick Leukocytes Negati ve Not Available In-Office Order Internal Use Only DO Not Attach Compendium DO Not Attach Compendium, Do Not Delete/merge, 12/16/2024 12:14:13 12/17/19 25 12/16/2024 urina lysis , dipst ick Nitrite negati ve Not Available In-Office Order Internal Use Only DO Not Attach Compendium DO Not Attach Compendium, Do Not Delete/merge, 12/16/2024 12:14:13 12/17/19 25 12/16/2024 urina lysis , dipst ick Urobilinogen .2 Not Available In-Of fice Order Internal Use Only DO Not Attach Compendium DO Not Attach Compendium, Do Not Delete/merge, 12/16/2024 12:14:13 12/17/19 25 12/16/2024 urina lysis , dipst ick Protein Negati ve Not Available In-Office Order Internal Use Only DO Not Attach Compendium DO Not Attach Compendium, Do Not Delete/merge, 12/16/2024 12:14:13 12/17/19 25 12/16/2024 urina lysis , dipst ick pH 6.0 Not Available In-Office Order Internal Use Only DO Not Attach Compendium DO Not Attach Compendium, Do Not Delete/merge, 12/16/2024 12:14:13 12/17/19 25 12/16/2024 urina lysis , dipst ick Blood Negati ve Not Available In-Office Order Internal Use Only DO Not Attach Compendium DO Not Attach Compendium, Do Not Delete/merge, 12/16/2024 12:14:13 12/17/19 25 12/16/2024 urina lysis , dipst ick Specific [place] 1.025 Not Available In-Off ice Order Internal Use Only DO Not Attach Compendium DO Not Attach Compendium, Do Not Delete/merge, 12/16/2024 12:14:13 12/17/19 25 12/16/2024 urina lysis , dipst ick Ketone Trace Not Available In-Office Order Internal Use Only DO Not Attach Compendium DO Not Attach Compendium, Do Not Delete/merge, 12/16/2024 12:14:13 12/17/19 25 12/16/2024 urina lysis , dipst ick Bilirubin Negati ve Not Available In-Office Order Internal Use Only DO Not Attach Compendium DO Not Attach Compendium, Do Not Delete/merge, [id number] 12/16/2024 12:14:13 12/17/19 25 12/16/2024 urina lysis , dipst ick Glucose Negati ve Not Available In-Office Order Internal Use Only DO Not Attach Compendium DO Not Attach Compendium, Do Not Delete/merge, [id number] 12/16/2024 12:14:13 12/17/19 25 12/16/2024 urina lysis , dipst ick Appearance Clear Not Available In-Offi ce Order Internal Use Only DO Not Attach Compendium DO Not Attach Compendium, Do Not Delete/merge, [id number] 12/16/2024 12:14:13 12/17/19 25 12/16/2024 urina lysis , dipst ick Color Dark Yellow Not Available In-Office Order Internal Use Only DO Not Attach Compendium DO Not Attach Compendium, Do Not Delete/merge, [id number] 12/16/2024 12:14:13 11/05/1911/04/2022 US, obste tric, mater nal evalu ation + anato my No observ ation record ed. [address] [place], [address], 11/04/2022 17:41:38 11/21/19 25 11/14/2024 US, obste tric, 2nd trime ster No observ ation record ed. [email or web address] [address] [place], [address], 11/21/2024 10:08:48 12/12/19 25 12/11/2024 US, obste tric, follo w-up No observ ation record ed. [facility]) [address] [facility], [place], [address], 12/12/2024 16:53:49 Result Notes None recorded. Problems Name Problem SNOMED Code Status Onset Date Resolution Date Notes Provider Name and Address Organization Details Recorded Time Pregnanc y 72749978 Completed 202111/08/2022 TARA Sán[place], [place] - [facility] 5 12:18:14 Marilynan a user 141640321 Completed Encourag e cessatio n TARA [place], [place] [facility] 3 16:17:25 Rubella non-immu ne 323805716 Completed Offer MMR after delivery T[place] [facility] 3 16:17:25 Past pregnanc y history of prematur e delivery 459534874 Active 2021 Induced secondar y to oligohyd ramnios? T[place] [facility] 3 16:17:25 Past pregnanc y history of prematur e delivery 847188619 Completed 2021 Induced secondar y to oligohyd ramnios? [place] [facility] 16:17:25 Tobacco user 071258614 Completed [place] [facility] 16:17:25 Depressi ve disorder 51407374 Completed T[place] [facility] 16:17:25 Anxiety disorder 768296278 Completed [place] [facility] 16:17:25 Seizure disorder 617729265 Completed Pt states the seizures stopped after removal of Nexplano n T[place] [facility] 16:17:24 History of alcoholi sm 933406399 Completed T[place] [facility] 16:17:25 Group B Streptoc occus carrier 01497744912 03 Completed 2022 T[place] [facility] 16:17:25 Group B Streptoc occus carrier 93360818085 03 Active 2022 T[place] [facility] 16:17:25 Pregnanc y 22359219 Active 2024 TARA [place] [facility] 12:18:13 Rubella non-immu ne 028622487 Active Alyssa Douglas MD Attn: Chris stevenson,[address] [facility], [place], [address], [facility] 5 15:00:32 Radha sommer user 413686202 Active Alyssa Douglas MD Attn: Chris stevenson,[address] [facility], [place], [address], [facility] 5 15:00:39 Problem Notes None recorded. Procedures Surgical History Date Name Laterality Status Provider Name and Address Organization Details Recorded Time 01/25/2024 Date of Last Pap Smear completed Maritza Park RN [facility] 01/30/2024 16:16:52 Imaging Results Imaging Date Name Status LastModified by Organiz ation Details LastModified Time 11/04/2022 US, obstetric, maternal evaluation + anatomy completed [email or web address] [place] [address] [place], [address], 11/04/2022 17:41:38 11/14/2024 US, obstetric, 2nd trimester completed [email or web address] [address] [place], [address], 11/21/2024 10:08:48 12/11/2024 US, obstetric, follow-up completed [address], [address], 12/12/2024 16:53:49 Procedure Notes None recorded. Medical Equipment None [...] completed Not Available Not Available Not Available Pre- Multivitamin s with Minerals 27 mg-1 mg-300 [...] Updated DateTime 11/30/2022 165.1 cm 22.9 kg/m2 87607.59 1638 g 108 mm[Hg] 71 mm[Hg] Chanell Hernandez [place] - [facility] 3 16:16:29 Date Recorded Body height Body mass index (BMI) Body weight Systolic blood pressure Diastolic blood pressure Provider Name and Address Organization Details Last Updated DateTime 01/17/2024 165.1 cm 18.6 kg/m2 46129.63 g 116 mm[Hg] 80 mm[Hg] Chanell Hernandez MA [facility] 4 14:31:07 Date Recorded Body height Body mass index (BMI) Body weight Systolic blood pressure Diastolic blood pressure Provider Name and Address Organization Details Last Updated DateTime 01/25/2024 165.1 cm 19.1 kg/m2 31819.4 g 109 mm[Hg] 73 mm[Hg] Chanell Hernandez MA [facility] 4 12:10:02 Date Recorded Body height Body mass index (BMI) Body weight Heart rate Systolic blood pressure Diastolic blood pressure Provider Name and Address Organization Details Last Updated DateTime 5 165.1 cm 21.8 kg/m2 83430.0 3 g 76 /min 115 mm[Hg] 81 mm[Hg] Cierra ruiz MA [facility] 5 12:08:54 Date Recorded Body height Body mass index (BMI) Body weight Heart rate Systolic blood pressure Diastolic blood pressure Provider Name and Address Organization Details Last Updated DateTime 5 165.1 cm 21.8 kg/m2 97555.6 g 93 /min 109 mm[Hg] 76 mm[Hg] Cierra ruiz MA [facility] 5 10:19:51 Date Recorded Body height Body mass index (BMI) Body weight Systolic blood pressure Diastolic blood pressure Provider Name and Address Organization Details Last Updated DateTime 12/16/2024 165.1 cm 22.6 kg/m2 42393.84 g 106 mm[Hg] 73 mm[Hg] Chanell Hernandez MA [facility] 5 12:10:38 Social History Question Answer Notes LastModified by Organizat ion Details LastModified Time Tobacco Smoking Status Former Smoker Cierra Drew MA null, [facility] 10/10/2024 12:13:13 Do You Have An Advance [...] Illicit Or Recreational Drugs Have You Used? [place] Information not available 05/26/2022 Do You Or Have You Ever Used E-cigarettes Or Vape? Current User Of Electronic Cigarettes Information not available 10/10/2024 What Is The Highest Grade Or Level Of School You Have Completed Or The Highest Degree You Have Received? [id number] Information not available 05/26/2022 Have There Been [...] Date Of Your Most Recent Tobacco Screening? 12/16/2024 Information not available 12/16/2024 How Many Children Do You Have? 1 [...] Anxious, Or Unable To Sleep At Night)? [id number] Information not available 05/26/2022 Do You Use Any Illicit Or Recreational Drugs? Yes Information not available 05/26/2022 Do You Use Sunscreen Routinely? Yes Information not available 05/26/2022 Has Tobacco Cessation Counseling Been Provided? Yes Information not available 01/17/2024 On What Date Was Tobacco Cessation Counseling Provided? 12/16/2024 Information not available 12/16/2024 Have You Used IV Drugs? No Information [...] LastModified by Organization Details LastModified Time Mother Harmful pattern of use of alcohol [email or web address] Not available 2021 16:57:32 Mother Myocardial infarction bailey Not available 06/09 11:35:46 Father Hypertensive disorder [email or web address] Not available 2021 11:35:38 Maternal Grandmother Diabetes mellitus [email or web address] Not available 2021 11:36:03 Medical History Condition Response Other Y Depression Y Anxiety Disorder Y Heart Disease Y Gynecological History Statement/Question [...] and Address Organization Details Recorded Time Tdap cancelled patient objection Alyssa Douglas MD Attn: Accounting,[address] [place] [address], [address], [facility] 08/03/2022 12:47:22 Past Encounters Encounter ID Performer Location Encounter Start Date Encounter Closed Date Diagnosis/Indication Diagnosis SNOMED-CT Code Diagnosis ICD10 Code Diagnosis Note [id number] MD Prudencio Arce 14 OB 4 [facility] Dr Smith [address] [place] [address] 06/09/2022 11:02:20 06/14/2022 09:32:14 Routine care 401426831 Z34.82 Past pregn shiva history of premature delivery 482996650 Z87.51 --IOL secondary to oligohydra mnios [id number] MD Prudencio Arce 14 OB 4 [facility] Dr Smith [address] [place] [address] 07/06/2022 14:01:22 07/07/2022 08:45:01 Routine care 297420779 Z34.82 Past pregn shiva history of premature delivery 747820904 Z87.51 --IOL secondary to oligohydra mnios Rubella non-immune 11791 4009 Z01.84 Marijuana user 544591247 F12.90 Constipation 42918013 K5 9.00 [id number] MD Prudencio Arce 14 OB 4 [facility] Dr Smith [address] [place] [address] 1 08/03/2022 10:58:55 08/04/2022 10:30:03 Routine care 626898186 Z34.82 Tobacco user 367612628 Z 72.0 --Encourag e cessation Seizure disorder 2646590 02 G40.909 --Pt states the seizures stopped after removal of Nexplanon Past pregn shiva history of premature delivery 235693027 Z87.51 --IOL secondary to oligohydra mnios Anxiety disorder 06 F41.9 --No medication Rubella non-immune 65182 4009 Z01.84 --Offer MMR after delivery Depressive disorder 3548 9007 F32.A --No medication Marijuana user 553973150 . --Encourag e cessation [id number] MD Prudencio Arce 14 OB 4 [facility] Dr Smith [address] [place] [address] 09/06/2022 11:59:52 09/07/2022 09:01:21 Routine care 050339390 Z34.82 Seizure disorder 9367061 02 G40.909 --Pt states the seizures stopped after removal of Nexplanon Tobacco user 819779570 Z 72.0 --Encourag e cessation History of alcoholism 16 1262253 F10.21 Past pregn shiva history of premature delivery 772877942 Z87.51 --IOL secondary to oligohydra mnios Anxiety disorder F41.9 --No medication Rubella non-immune 83958 4009 Z01.84 --Offer MMR after delivery Depressive disorder 3548 9007 F32.A --No medication Marijuana user 758622113 F12. --Encourag e cessation [id number] MD Prudencio Arce 14 OB 4 [facility] Dr Smith [address] [place] [address] 09/20/2022 11:40:27 09/21/2022 11:16:05 Routine care 450264124 Z34.82 Past pregn shiva history of premature delivery 001145502 Z87.51 --IOL secondary to oligohydra mnios Seizure disorder 0053887 02 G40.909 --Pt states the seizures stopped after removal of Nexplanon Rubella non-immune 20301 4009 Z01.84 --Offer MMR after delivery Tobacco user 086069286 Z 72.0 --Encourag e cessation History of alcoholism 16 9851909 F10.21 Depressive disorder 3548 9007 F32.A --No medication Anxiety disorder F41.9 --No medication Marijuana user 673262425 F12.90 --Encourag e cessation [id number] MD Prudencio Arce 14 OB 4 [facility] Dr Smith [address] [place] [address] 10/03/2022 09:47:18 10/04/2022 12:36:48 Routine care 609621495 Z34.82 Past pregn shiva history of premature delivery 351536281 Z87.51 --IOL secondary to oligohydra mnios Seizure disorder 5562945 02 G40.909 --Pt states the seizures stopped after removal of Nexplanon Rubella non-immune 37533 4009 Z01.84 --Offer MMR after delivery Tobacco user 466429709 Z 72.0 --Encourag e cessation History of alcoholism 16 5888620 F10.21 Depressive disorder 3548 9007 F32.A --No medication Anxiety disorder F41.9 --No medication Marijuana user 222248441 F12.90 --Encourag e cessation [id number] MD Prudencio Arce 14 OB 4 [facility] Dr Smith [address] [place] [id number] 10/11/2022 15:47:01 10/26/2022 10:40:10 Routine care 135679654 Z34.82 Past pregn shiva history of premature delivery 569058585 Z87.51 --IOL secondary to oligohydra mnios Tobacco user 430658348 Z 72.0 --Encourag e cessation Seizure disorder 0899572 02 G40.909 --Pt states the seizures stopped after removal of Nexplanon History of alcoholism 16 9910590 F10.21 Anxiety disorder F41.9 --No medication Rubella non-immune 10435 4009 Z01.84 --Offer MMR after delivery [id number] MD Prudencio Arce 14 OB 4 [facility] Dr Smith [address] [place] [id number] 1 10/19/2022 16:11:02 10/20/2022 10:17:13 Routine care 509179532 Z34.82 Past pregn shiva history of premature delivery 436961480 Z87.51 --IOL secondary to oligohydra mnios Tobacco user 186401643 Z 72.0 --Encourag e cessation Seizure disorder 4890204 02 G40.909 --Pt states the seizures stopped after removal of Nexplanon History of alcoholism 16 6198320 F10.21 Anxiety disorder F4.9 --No medication Rubella non-immune 00884 4009 Z01.84 --Offer MMR after delivery [id number] MD Prudencio Arce 14 OB 4 [facility] Dr Smith [address] [place] [id number] 10/26/2022 15:46:47 11/15/2022 10:19:58 Routine care 432132146 Z34.82 Past pregn shiva history of premature delivery 787301573 Z87.51 --IOL secondary to oligohydra mnios Tobacco user 983037501 Z 72.0 --Encourag e cessation Seizure disorder 6563347 02 G40.909 --Pt states the seizures stopped after removal of Nexplanon History of alcoholism 16 9780989 F10.21 Anxiety disorder F4.9 --No medication Rubella non-immune 64067 4009 Z01.84 --Offer MMR after delivery [id number] MD Prudencio Arce 14 OB 4 [facility] [address] [place] [address] 11/01/2022 10:44:51 11/02/2022 09:58:19 Routine care 257016733 Z34.82 Past pregn shiva history of premature delivery 440690119 Z87.51 --IOL secondary to oligohydra mnios Tobacco user 246423980 Z 72.0 --Encourag e cessation Seizure disorder 2315710 02 G40.909 --Pt states the seizures stopped after removal of Nexplanon History of alcoholism 16 9849416 F10.21 Anxiety disorder F41.9 --No medication Rubella non-immune 91711 4009 Z01.84 --Offer MMR after delivery Group B St reptococcus carrier 7544658005 103 Z22.330 --Treat with antibiotic s during labor [id number] MD Prudencio Arce [address] [place] [address] [place] [address] 11/30/2022 16:05:03 12/07/2022 12:43:30 Depression screening 458668677 Z13.31 --Pt states that she is not depressed and she declined offer for therapy or medical treatement . [id number] MD Prudencio Arce [address] [place] [address] [place] [address] 01/25/2024 11:58:23 02/05/2024 09:31:54 Gynecologic examination 04372634 Z01.419 --CBE and pap smear performed Vaginal discharge 031725 006 N89.8 Contracept ion care management 108928277 Z30.9 --Start OCPs Body mass index less than 20 395820768 Z68.1 [id number] MD Prudencio Arce [address] [place] [address] [place] [address] 10/10/2024 11:26:03 10/12/2024 09:17:30 Routine care 745439568 Z34.81 test positive 398252593 Z32.01 Depression screening 171 865930 Z13.31 [id number] MD Prudencio Arce [address] [place] [address] 11/11/2024 10:11:05 11/15/2024 10:31:42 Routine care 865187929 Z34.82 Marijuana user 606535386 F12.90 --Encourag e cessation Rubella non-immune 93149 4009 Z01.84 --Offer MMR after delivery [id number] MD Prudencio Arce [address] [place] [address] [place] [address] 12/16/2024 11:13:14 12/26/2024 12:01:48 Normal 55224773 Z34.82 Marijuana user 593837759 F12.90 --Encourag e cessation Rubella non-immune 68182 4009 Z01.84 --Offer MMR after delivery Health Concerns Section Related Observation LastModified by Organization Detai ls LastModified Time None Recorded Concern Status LastModified by Organization Details LastModified Time None Recorded Advance Directives Directive N: Payers Encounter Date Sequence Insurance Name Policy Number Policy Asencio Covered Member ID Asencio Member ID Guarantor Name 11/30/2022 1 [facility] - DOS ON OR AFTER 21 (MEDICAID REPLACEMENT - HMO) Dominga Al [id number] Dominga Al 01/25/2024 1 [facility] - DOS ON OR AFTER 21 (MEDICAID REPLACEMENT - HMO) Dominga Al [id number] Dominga Al 10/10/2024 1 [facility] - DOS ON OR AFTER 21 (MEDICAID REPLACEMENT - HMO) Dominga Al [id number] Dominga Al 11/11/2024 1 [facility] - DOS ON OR AFTER 21 (MEDICAID REPLACEMENT - HMO) Dominga Al [id number] Dominga Al 12/16/2024 1 [facility] - DOS ON OR AFTER 21 (MEDICAID REPLACEMENT - HMO) Dominga Al [id number] Dominga Al Notes Date Note Type Note Provider Name and Address Organization Details Recorded Time 11/30/2022 text/html Patient presents for assessment of post depression. She denies feeling down, blue or depressed and states that she has enough help at home. She denies any other complaints. Alyssa Douglas MD Attn: Accounting,[address] [place], [address], [facility] 12/05/2022 22:30:16 01/25/2024 text/html Annual GYNReport ed [...] PMDD Alyssa Douglas MD Attn: Accounting,[address] [place], [address], [facility] 02/03/2024 22:13:56 10/10/2024 text/html See molly w sheet. Alyssa Douglas MD Attn: Accounting,[address] [facility], [place], [address], [place] [facility] 10/10/2024 13:48:51 11/11/2024 text/html See molly w sheet. Alyssa Douglas MD Attn: Accounting,[address] [facility], [place], [address], [place] [facility] 11/11/2024 11:20:45 12/16/2024 text/html See molly w sheet. Alyssa Douglas MD Attn: Accounting,[address] [facility], [place], [address], [place] [facility] 12/16/2024 13:12:45 OBGyn Episode Ob Episode Information Episode Created Date Number of Fetuses Patient Bloodtype Patient rh Status Prepregnancy Weight lbs Domestic Partner Domestic Partner Phone Father Name Display Department Manager Status 10/10/19 25 1 CLOSED Fetus Data First Name Last Name Admitted to NICU Weight (g) Sex Living Outcome Pediatric Complications Fetus ID Race Codes Race Delivery Type , Spontane ous [id number] Mayco Calculation Initial Mayco Date Initial Exam [...] Domestic Partner Domestic Partner Phone Father Name Display Department Manager Status 09/05/19 25 1 O Positive OPEN Fetus Data First Name Last Name Admitted to NICU Weight (g) Sex Living Outcome Pediatric Complications Fetus ID Race Codes Race Delivery Type [id number] Problems Problem Notes PRAPARE done Problem Name Start Date End Date Resolution Snomed Code Not e Marijuana user 117290244 Rubella non-immune 344248419 Mayoc Calculation Initial Mayco Date Initial Exam Date Initial Exam Provider Initial Ultrasound Date Last Menstrual Period Date Ultra Sound Weeks Gestation 05/09/2025 09/05/2024 11/14/2024 08/02/2024 14 Eighteen To Twenty Week Mayco Update Ultra Sound Date Fundal Height At Umbil Quickening Date Ultra Sound Latest Weeks Gestation Final Mayco Confirmed By Final Mayco Confirmed Date Final Mayco Date Ultra Sound Latest Days Gestation 0 [email or web address] 11/20/2024 05/09/20 25 0 Pre- Flowsheet Flowsheet Date 10/10/2024 Borges Score Blood Edema Fundus Height Fundus Units Glucose Ketones Leukocytes Nitrite Labor Signs Protein Cervic Dilation Cervic Effacement Cervic Station neg none none negative none neg 0cm Type Weight in lbs Pre/Post Dialysis Refused With clothes 131.599751009944 BP Diastolic BP Location Tested BP Systolic [...] in lbs Pre/Post Dialysis Refused With clothes 131.508478541986 BP Diastolic BP Location Tested BP Systolic BP Type 76 R arm 109 sitting Fetus Heart Rate Present A 150's Present Fetus Movement Comments Patient denies any complaint s. NIPT today. RTC in 4 weeks. Flowsheet Date 12/16/2024 Borges Score Blood Edema Fundus Height Fundus Units Glucose Ketones Leukocytes Nitrite Labor Signs Protein Cervic Dilation Cervic Effacement Cervic Station neg none none trace none neg Type Weight in lbs Pre/Post Dialysis Refused Weight 135.441191024041 BP Diastolic BP Location Tested BP Systolic BP Type 73 R arm 106 sitting Fetus Heart Rate Present A 150's Present Fetus Movement A Yes Comments Patient admits to FM and den ies any other complaints. Will follow up in 4 weeks for routine care. Menstrual History Last Menstrual Date Menses Monthly On Bcp Conception Prior Menses Frequency Hcg Plus Date Menarche Onset Age 1208/02/2024 true false 6 8 Genetic Screening And Infection History Question Response Note Patient's Age Will Be 35 Yea rs Or Older At Estimated Date of Delivery false Thalassemia (Barbadian, Lebanese, Mediterranean, Or Background): MCV < 80 false Neural Tube Defect (Meningom yelocele, Spina Bifida, Or Anencephaly) false Congenital Heart Defect false Down Syndrome false Tk-Sachs (eg, Restorationism, Cajun, Hong Konger-Malaysian) f alse Dinah Disease false Sickle Cell Disease Or Trait () false Hemophilia Or Other Blood Disorders false Muscular Dystrophy false Cystic Fibrosis false Akron's Chorea false Mental Retardation/Autism false If Yes, [...] Domestic Partner Domestic Partner Phone Father Name Display Department Manager Status 05/26/20 22 1 O Positive CLOSED Fetus Data First Name Last Name Admitted to NICU Weight (g) Sex Living Outcome Pediatric Complications Fetus ID Race Codes Race Delivery Type Jackie Isaebl false 3183.67 36619 F true Full Term 25634 2106-3 White Vaginal Problems Problem Notes breast feeding boy cir ? epi dural yes cat advised not to change liter box Problem Name Start Date End Date Resolution Snomed Code Not e Depressive disorder 86341105 Anxiety disorder 407304205 Seizure disorder 249920302 Pt states the seizures stopped after removal of Nexplanon History of alcoholism 56870039 1 Past history of premature delivery 06/29/2022 102428181 Induce d secondary to oligohydramnios? Tobacco user 471999696 Group B Streptococcus carrier 11/01/2022 6212469145697 Rubella non-immune 637215879 O ffer MMR after delivery Marijuana user 652151998 Encou rage cessation Mayco Calculation Initial Mayco Date Initial Exam Date Initial Exam Provider Initial Ultrasound Date Last Menstrual Period Date Ultra Sound Weeks Gestation 10/31/2022 05/26/2022 [email or web address] [id number] 06/15/2022 01/24/2022 19 Eighteen To Twenty Week Mayco Update Ultra Sound Date Fundal Height At Umbil Quickening Date Ultra Sound Latest Weeks Gestation Final Mayco Confirmed By Final Mayco Confirmed Date Final Mayco Date Ultra Sound Latest Days Gestation 0 [email or web address] [id number] 06/17/2022 11/10/19 23 0 Pre-ashely Flowsheet Flowsheet Date 06/09/2022 Borges Score Blood Edema Fundus Height Fundus Units Glucose Ketones Leukocytes Nitrite Labor Signs Protein Cervic Dilation Cervic Effacement Cervic Station neg none none negative none neg 0cm Type Weight in lbs Pre/Post Dialysis Refused With clothes 135.86453092058 BP Diastolic BP Location Tested BP Systolic [...] in lbs Pre/Post Dialysis Refused With clothes 137.126380989689 BP Diastolic BP Location Tested BP Systolic [...] in lbs Pre/Post Dialysis Refused With clothes 142.023051521326 BP Diastolic BP Location Tested BP Systolic [...] Weight in lbs Pre/Post Dialysis Refused Weight 144.067747760153 BP Diastolic BP Location Tested BP Systolic [...] in lbs Pre/Post Dialysis Refused With clothes 145.885422979040 BP Diastolic BP Location Tested BP Systolic [...] in lbs Pre/Post Dialysis Refused With clothes 149.069345665020 BP Diastolic BP Location Tested BP Systolic [...] in lbs Pre/Post Dialysis Refused With clothes 149.249545253390 BP Diastolic BP Location Tested BP Systolic [...] in lbs Pre/Post Dialysis Refused With clothes 151.156039462452 BP Diastolic BP Location Tested BP Systolic BP Type 72 110 sitting Fetus Heart Rate Present A 150's Present Fetus Movement A Yes Comments Patient admits to , denies VB, LOF and CTXs. Labor precautions [...] in lbs Pre/Post Dialysis Refused With clothes 150.913863166443 BP Diastolic BP Location Tested BP Systolic BP Type 70 108 sitting Fetus Heart Rate Present A 140's Present Fetus Movement A Yes Comments Patient admits to , denies VB, LOF and CTXs. Labor precautions given. RTC in 1 week. Flowsheet Date 11/30/2022 Borges Score Blood Edema Fundus Height Fundus Units Glucose Ketones Leukocytes Nitrite Labor Signs Protein Cervic Dilation Cervic Effacement Cervic Station Type Weight in lbs Pre/Post Dialysis Refused Weight 137.277189876716 BP Diastolic BP Location Tested BP Systolic [...] At Estimated Date of Delivery false Thalassemia (Barbadian, Lebanese, Mediterranean, Or Background): MCV < 80 false Neural Tube Defect (Meningom yelocele, Spina Bifida, Or Anencephaly) false Congenital Heart Defect false Down Syndrome false Tk-Sachs (eg, Restorationism, Cajun, Hong Konger-Malaysian) t rue Hong Konger-Malaysian FOB Dinah Disease false Sickle Cell Disease [...] Complications Tubal Sterilization Discharge Date Comments 3 Sponta neous Regional-Ep idural 39.3 false Alyssa Douglas MD None 11/07/2022 Discharge Information Feeding Method Contraceptive Method Maternal HG B and HCT Levels Breast 11.6/36.6 Ob Episode Information Episode Created Date Number of Fetuses Patient Bloodtype Patient rh Status Prepregnancy Weight lbs Domestic Partner Domestic Partner Phone Father Name Display Department Manager Status 05/26/20 22 1 CLOSED Fetus Data First Name Last Name Admitted to NICU Weight (g) Sex Living Outcome Pediatric Complications Fetus ID Race Codes Race Delivery Type [id number] Full Term [id number] Vaginal Mayco Calculation Initial Mayco Date Initial [...]
== END 2025-01-01 12:11 | disposition home or self-care (01) ==
LOC: CHSIMG 12:17
PROVIDERS: PCP Nurse Practitioner Family; Visit Provider Obstetrics & Gynecology
DX: Z34.82 Encounter for supervision of other normal pregnancy, second trimester (principal); Z3A.20 20 weeks gestation of pregnancy
CPT/HCPCS: 76805

== ENCOUNTER 2025-01-14 12:00 | Outpatient (CLI) | payer OTHER, SELFPAY ==
--- NOTE | ~2025-01-14 | US_ITS ---
EXAM EXAMINATION: US OB follow up DATE: 01/15/2025 20:46 CDT INDICATION: Follow-up anatomy scan COMPARISON: 01/01/2025 TECHNIQUE: Real-time transabdominal obstetric ultrasound. FINDINGS: 7 para 2 There is a single intrauterine gestation in breech presentation. The placenta is anterior. The distance between the lower edge of the placenta and the internal cervical os measures 2.54 cm The cervix measures 3.61 cm in length on the submitted images. Both the anterior and posterior margins of the diaphragm are well delineated and are continuous . cardiac activity and movement is noted with a heart rate of 163 beats per minute. IMPRESSION: Single intrauterine gestation in breech presentation with cardiac activity identified. The anterior placenta now measures 2.54 cm from the internal cervical os on the submitted images. Both the anterior and posterior margins of the diaphragm are well visualized and continuous. Reviewed, dictated and finalized at location A. IMPRESSION: Single intrauterine gestation in breech presentation with cardiac activit y identified. The anterior placenta now measures 2.54 cm from the internal cervical os on the submitted images. Both the anterior and posterior margins of the diaphragm are well visuali zed and continuous.
--- OUTSIDE RECORDS SUMMARY | 2025-01-14 12:05 | XMS_ITS | Data Portability ---
Author Organization [facility] Karli Merrill Address [address] [place] [address] Care Team Providers Care Mud Analysis Operator Name Role Phone ALYSSA DOUGLAS Crayon Painter Assessment No assessment recorded. Plan of Treatment Reminders Order Date Submit Date Provider Last Modified By Organization Details Last Modified Time Details Appointments OB 15 2024 09:15A M Alyssa Douglas MD Not available Not available Not available Lab urinal ysis, dipsti ck 2024 025 [facility] Order, Internal Use Only DO Not Attach Compendium DO Not Attach Compendium, Do Not Delete/merge, [id number] 12/16/2024 13:08:09 urinal ysis, dipsti ck 2024 025 [email or web address] In-Office Order, Internal Use Only DO Not Attach Compendium DO Not Attach Compendium, Do Not Delete/merge, [id number] 11/11/2024 12:07:10 aneupl oidy risk and X & Y analys is, chromo some specif ic circul ating cell free (CCF) DNA, matern al serum 2024 025 [facility], [address] Neil Chavarria, [address], [address], 11/15/2024 07:16:07 pregna ncy test, urine 2024 025 [facility] Order, Internal Use Only DO Not Attach Compendium DO Not Attach Compendium, Do Not Delete/merge, [id number] 10/10/2024 13:45:00 urinal ysis, dipsti ck 2024 025 In-Office Order, Internal Use Only DO Not Attach Compendium DO Not Attach Compendium, Do Not Delete/merge, [id number] 10/10/2024 13:45:00 hemogl obin (Hb) electr ophore sis, blood 2024 025 [facility], [address] [facility] [place], [facility], [place], [address], 10/23/2024 07:17:47 HIV 1 + 2, meanin gful use set 2024 025 rstepIngo Moneysonma [facility], [address] [place] [address], [facility], [place], [address], 10/24/2024 08:36:06 varice lla zoster virus IgG Ab, QL, IA, serum 2024 025 [facility], [address] [facility], [facility], [place], [address], 10/23/2024 07:17:57 urinal ysis comple te, reflex cultur e 2024 025 [facility], [address] [place] [address], [facility], [place], [address], 10/23/2024 07:17:51 drug screen , urine 2024 025 [facility], [address] [place] [address], [facility], [place], [address], 10/23/2024 07:17:55 CFTR gene mutati ons found, blood or tissue 2024 025 [facility]stepIngo [facility]one[facility], [address] [facility], [facility], [place], [address], 10/24/2024 08:36:06 Hepati tis C IgG Ab, qual, serum 2024 025 [facility]stepIngo [facility], [address] [facility], [facility], [place], [address], 10/24/2024 08:36:06 prenat al panel 2024 025 [facility], [address] [facility], [facility], [place], [address], 10/23/2024 07:17:49 spinal muscul ar atroph y (sma) mutati ons, blood/ tissue 2024 025 [facility], [address] [facility], [facility], [place], [address], 10/23/2024 07:17:53 chlamy china tracho matis + neisse hardy gonorr hoeae + tricho monas vagina lis rRNA panel, MARTY+pr obe 2024 025 [facility], [address], [address], [place], [address], 10/12/2024 07:13:40 vagina l pathog ens panel, MARTY+pr obe, vagina l fluid 2023 024 [facility], [address], [address], [place], [address], 01/29/2024 11:11:58 mycopl asma genita lium DNA, qualit ative, PCR 2023 024 [facility], [address], [address], [place], [address], 01/29/2024 11:11:59 cytolo gy report , thin prep, smear or scrapi ng, cervic al or vagina l 2023 024 [facility], [address], [address], [place], [address], 01/30/2024 16:12:14 Referral None record ed. Procedures None record ed. Surgeries None record ed. Imaging US, obstet abby, matern al evalua tion + anatom y 2024 025 [facility] [address], [place], [address], 01/02/2025 10:13:06 US, obstet abby, 2nd trimes ter 2024 025 [facility], [address] [facility] , [place], [address], 11/20/2024 13:38:18 Medication Orders drospi renone 3 mg-eth inyl estrad iol 0.02 mg tablet 2023 025 [facility], [address], [place], [address], 10/10/2024 12:09:59 Patient TargetsNo targets recorded. Patient Instructions Encounter Date Encounter Id Patient Instructions Last Modified By Organization Details Last Modified Time 01/25/2024 [id number] learning about healthy weight Not available 02/03/2024 22:13:51 10/10/2024 [id number] edinburgh depression scale* [email or web address] Not available 10/10/2024 13:48:22 learning about Not [...] Abnormal Flag Note LastModifiedBy Organization Detail LastModifiedTime 01/25/20 24 01/29/2024 JOHNSON Vega VAGIN ITIS PLUS (VG+) atopobium vaginae LOW - 0 score Not Available [facility] ([facility]) [address] [facility], [place], [address], 01/29/2024 11:11:58 01/25/20 24 01/29/2024 NUSWA B VAGIN ITIS PLUS (VG+) bvab 2 LOW - 0 score Not Available [facility] ([facility]) [address] [facility], [place], [address], 01/29/2024 11:11:58 01/25/20 24 01/29/2024 NUA B VAGIN ITIS PLUS (VG+) megasphaera 1 [...] prese nce of BV. Not Available [facility] ([facility]) [address] [facility], [place], [address], 01/29/2024 11:11:58 01/25/20 24 01/29/2024 NUA B VAGIN ITIS PLUS (VG+) stefan albicans, MARTY NEGATI VE negati ve Not Available [facility] ([facility]) [address] [place], [address], 01/29/2024 11:11:58 01/25/20 24 01/29/2024 NUA B VAGIN ITIS PLUS (VG+) stefan glabrata, MARTY NEGATI VE negati ve Not Available [facility] ([facility]) [address] [facility], [place], [address], 01/29/2024 11:11:58 01/25/20 24 01/29/2024 NUA B VAGIN ITIS PLUS (VG+) trich vag by MARTY NEGATI VE negati ve Not Available [facility] ([facility]) [address] [place], [address], 01/29/2024 11:11:58 01/25/20 24 01/29/2024 NUA B VAGIN ITIS PLUS (VG+) chlamydia trachomatis, MARTY NEGATI VE negati ve Not Available [facility] ([facility]) [address] [place], [address], 01/29/2024 11:11:58 01/25/20 24 01/29/2024 NUA B VAGIN ITIS PLUS (VG+) neisseria gonorrhoeae, MARTY NEGATI VE negati ve Not Available [facility] ([facility]) [address] [place], [address], 01/29/2024 11:11:58 01/25/20 24 01/29/2024 M GENIT ALIUM MARTY, SWAB mycoplasma genitalium MARTY NEGATI VE negati ve Not Available [facility] ([facility]) [address] [place], [address], 01/29/2024 11:11:59 01/25/20 24 01/26/2024 IGP, APTIM A HPV, RFX 16/18 ,45 HPV aptima NEGATI VE negati ve This nucle ic acid ampli ficat ion test detec ts fourt een high- risk HPV types (16,1 8,31, 33,35 ,39,4 5,51, 52,56 ,58,5 9,66, 68) witho ut diffe renti ation . Not Available [facility] ([facility]) [address] [place], [address], 01/30/2024 16:12:14 01/25/20 24 01/30/2024 IGP, APTIM A HPV, RFX 16/18 ,45 diagnosis: COMMEN T NEGAT NERY FOR INTRA EPITH ELIAL LESIO N OR ELZA WETZEL . Not Available [facility] ([facility]) [address] [facility], [place], [address], 01/30/2024 16:12:14 01/25/20 24 01/30/2024 IGP, APTIM A HPV, RFX 16/18 ,45 specimen adequacy: SOWMYA Fitzpatrick Satis facto ry for evalu ation . Endoc ervic al and/o r squam ous metap lasti c cells (endo cervi nabor compo nent) are prese nt. Not Available [facility] ([facility]) [address] [facility], [place], [address], 01/30/2024 16:12:14 01/25/20 24 01/30/2024 IGP, APTIM A HPV, RFX 16/18 ,45 clinician provided ICD10: SOWMYA Fitzpatrick Z01.4 19 N89.8 Not Available [facility] ([facility]) [address] [facility], [place], [address], 01/30/2024 16:12:14 01/25/20 24 01/30/2024 IGP, APTIM A HPV, RFX 16/18 ,45 performed by: SOWMYA guerra, Cytot william greene t (ASCP ) Not Available [facility] ([facility]) [address] [facility], [place], [address], 01/30/2024 16:12:14 01/25/20 24 01/30/2024 IGP, APTIM A HPV, RFX 16/18 ,45 . . Not Available [facility] ([facility]) [address] [facility], [place], [address], 01/30/2024 16:12:14 01/25/20 24 01/30/2024 IGP, APTIM A HPV, RFX 16/18 ,45 note: SOWMYA Fitzpatrick The Pap smear is a scree marissa test mily friend to aid in the detec tion of ilia ligna nt and malig nant condi tions of the uteri ne cervi x. It is not a diagn ostic proce dure and shoul d not be used as the sole means of detec ting cervi nabor cance r. Both false -posi tive and false -nega tive repor ts do occur . Not Available [facility] ([facility]) [address] [place], [address], 01/30/2024 16:12:14 01/25/20 24 01/30/2024 IGP, APTIM A HPV, RFX 16/18 ,45 test methodology: - The Thin Prep( R) Image r was unabl e to read this speci men. There fore a bobby watson revie w was perfo rmed. Not Available [facility] ([facility]) [address] [place], [address], 01/30/2024 16:12:14 01/25/20 24 01/30/2024 IGP, APTIM A HPV, RFX 16/18 ,45 HPV genotype reflex COMMEN T Crite hardy not met, HPV Genot ype not perfo rmed. Not Available [facility] ([facility]) [address] [place], [address], 01/30/2024 16:12:14 10/10/19 25 10/11/2024 CT, NG, TRICH VAG BY MARTY chlamydia by MARTY NEGATI VE negati ve Not Available [facility] ([facility]) [address] [place], [address], 10/12/2024 07:13:40 10/10/19 25 10/11/2024 CT, NG, TRICH VAG BY MARTY gonococcus by MARTY NEGATI VE negati ve Not Available [facility] ([facility]) [address] [place], [address], 10/12/2024 07:13:40 10/10/19 25 10/11/2024 CT, NG, TRICH VAG BY MARTY trich vag by MARTY NEGATI VE negati ve Not Available [facility] ([facility]) [address] [facility], [place], [address], 10/12/2024 07:13:40 10/10/1910/11/2024 HGB FRACT IONAT ION CASCA DE HGB F 0.3 % 0.0-2. 0 Not Available [facility] ([facility]) [address] [facility], [place], [address], 10/23/2024 07:17:47 10/10/1910/11/2024 HGB FRACT IONAT ION CASCA DE HGB A 97.1 % 96.4-9 8.8 Not Available [facility] ([facility]) [address] [facility], [place], [address], 10/23/2024 07:17:47 10/10/19 25 10/11/2024 HGB FRACT IONAT ION CASCA DE HGB A2 2.6 % 1.8-3. 2 Not Available [facility] ([facility]) [address] [facility], [place], [address], 10/23/2024 07:17:47 10/10/1910/11/2024 HGB FRACT IONAT ION CASCA DE HGB S 0.0 % 0.0 Not Available [facility] ([facility]) [address] [facility], [place], [address], 10/23/2024 07:17:47 10/10/1910/11/2024 HGB FRACT IONAT ION [...] Alpha -Thal assem ia DNA Navin sis (#[phone]). Not Available [facility] ([facility]) [address] [facility], [place], [address], 10/23/2024 07:17:47 10/10/1910/11/2024 INTER PRETA TION: interpretati on: Commen t Not infec chava with HCV unles s early or acute infec tion is suspe cted (whic h may be delay ed in an immun ocomp romis ed indiv idual ), or other evide nce exist s to indic ate HCV infec tion. Not Available [facility] ([facility]) [address] [facility], [place], [address], 10/23/2024 07:17:48 10/10/1910/11/2024 PREGN SHIVA, INITI AL SCREE N HBsAg screen NEGATI VE negati ve Not Available [facility] ([facility]) [address] [place], [address], 10/23/2024 07:17:49 10/10/19 25 10/11/2024 PREGN SHIVA, INITI AL SCREE N HCV Ab NON REACTI VE nonrea ctive Not Available [facility] ([facility]) [address] [place], [address], 10/23/2024 07:17:49 10/10/19 25 10/11/2024 PREGN SHIVA, INITI AL SCREE N RPR NON REACTI VE nonrea ctive Not Available [facility] ([facility]) [address] [place], [address], 10/23/2024 07:17:49 10/10/1910/11/2024 PREGN SHIVA, INITI AL SCREE N rubella antibodies, IgG 0.91 index immune >0.99 below low normal A secon d sampl e shoul d be colle cted and teste d no less than 2-4 weeks . Non-i mmune <0.90 Equiv ocal 0.90 - 0.99 Immun e >0.99 Not Available [facility] ([facility]) [address] [place], [address], 10/23/2024 07:17:49 10/10/19 25 10/11/2024 PREGN SHIVA, INITI AL SCREE N ABO grouping O Not Available [facility] ([facility]) [address] [facility], [place], [address], 10/23/2024 07:17:49 10/10/1910/11/2024 PREGN SHIVA, INITI AL SCREE N Rh factor POSITI VE Pleas e note: Prior recor ds for this patie nt's ABO / Rh type are not avail able for addit ional verif icati on. Not Available [facility] ([facility]) [address] [facility], [place], [address], 10/23/2024 07:17:49 10/10/19 25 10/11/2024 PREGN SHIVA, INITI AL SCREE N antibody screen NEGATI VE negati ve Not Available [facility] ([facility]) [address] [facility], [place], [address], 10/23/2024 07:17:49 10/10/1910/11/2024 PREGN SHIVA, INITI AL SCREE N HIV Ab/P24 Ag screen NON REACTI VE nonrea ctive HIV-1 /HIV- 2 antib odies and HIV-1 p24 antig en were NOT detec chava. There is no labor atory evide nce of HIV infec tion. HIV Negat nery Not Available [facility] ([facility]) [address] [facility], [place], [address], 10/23/2024 07:17:49 10/10/19 25 10/11/2024 PREGN SHIVA, INITI AL SCREE N chlamydia trachomatis, MARTY NEGATI VE negati ve Not Available [facility] ([facility]) [address] [place], [address], 10/23/2024 07:17:49 10/10/19 25 10/11/2024 PREGN SHIVA, INITI AL SCREE N neisseria gonorrhoeae, MARTY NEGATI VE negati ve Not Available [facility] ([facility]) [address] [place], [address], 10/23/2024 07:17:49 10/10/19 25 10/11/2024 PREGN SHIVA, INITI AL SCREE N WBC 8.3 x10e3 /uL 3.4-10 .8 Not Available [facility] ([facility]) [address] [place], [address], 10/23/2024 07:17:49 10/10/1910/11/2024 PREGN SHIVA, INITI AL SCREE N RBC 4.54 x10e6 /uL 3.77-5 .28 Not Available [facility] ([facility]) [address] [place], [address], 10/23/2024 07:17:49 10/10/19 25 10/11/2024 PREGN SHIVA, INITI AL SCREE N hemoglobin 14.3 g/dL 11.1-1 5.9 Not Available [facility] ([facility]) [address] [place], [address], 10/23/2024 07:17:49 10/10/19 25 10/11/2024 PREGN SHIVA, INITI AL SCREE N hematocrit 43.0 % 34.0-4 6.6 Not Available [facility] ([facility]) [address] [place], [address], 10/23/2024 07:17:49 10/10/1910/11/2024 PREGN SHIVA, INITI AL SCREE N MCV 95 fL 79-97 Not Available [facility] ([facility]) [address] [place], [address], 10/23/2024 07:17:49 10/10/19 25 10/11/2024 PREGN SHIVA, INITI AL SCREE N MCH 31.5 pg 26.6-3 3.0 Not Available [facility] ([facility]) [address] [facility], [place], [address], 10/23/2024 07:17:49 10/10/19 25 10/11/2024 PREGN SHIVA, INITI AL SCREE N MCHC 33.3 g/dL 31.5-3 5.7 Not Available [facility] ([facility]) [address] [facility], [place], [address], 10/23/2024 07:17:49 10/10/1910/11/2024 PREGN SHIVA, INITI AL SCREE N RDW 11.2 % 11.7-1 5.4 below low normal Not Available [facility] ([facility]) [address] [facility], [place], [address], 10/23/2024 07:17:49 10/10/19 25 10/11/2024 PREGN SHIVA, INITI AL SCREE N platelets 262 x10e3 /uL 150-45 0 Not Available [facility] ([facility]) [address] [facility], [place], [address], 10/23/2024 07:17:49 10/10/19 25 10/11/2024 PREGN SHIVA, INITI AL SCREE N neutrophils 61 % notest ab. Not Available [facility] ([facility]) [address] [facility], [place], [address], 10/23/2024 07:17:49 10/10/19 25 10/11/2024 PREGN SHIVA, INITI AL SCREE N lymphs 28 % notest ab. Not Available [facility] ([facility]) [address] [facility], [place], [address], 10/23/2024 07:17:49 10/10/19 25 10/11/2024 PREGN SHIVA, INITI AL SCREE N monocytes 9 % notest ab. Not Available [facility] ([facility]) [address] [facility], [place], [address], 10/23/2024 07:17:49 10/10/19 25 10/11/2024 PREGN SHIVA, INITI AL SCREE N eos 1 % notest ab. Not Available [facility] ([facility]) [address] [place], [address], 10/23/2024 07:17:49 10/10/19 25 10/11/2024 PREGN SHIVA, INITI AL SCREE N basos 0 % notest ab. Not Available [facility] ([facility]) [address] [place], [address], 10/23/2024 07:17:49 10/10/19 25 10/11/2024 PREGN SHIVA, INITI AL SCREE N neutrophils (absolute) 5.1 x10e3 /uL 1.4-7. 0 Not Available [facility] ([facility]) [address] [place], [address], 10/23/2024 07:17:49 10/10/19 25 10/11/2024 PREGN SHIVA, INITI AL SCREE N lymphs (absolute) 2.3 x10e3 /uL 0.7-3. 1 Not Available [facility] ([facility]) [address] [place], [address], 10/23/2024 07:17:49 10/10/19 25 10/11/2024 PREGN SHIVA, INITI AL SCREE N monocytes(ab solute) 0.8 x10e3 /uL 0.1-0. 9 Not Available [facility] ([facility]) [address] [place], [address], 10/23/2024 07:17:49 10/10/19 25 10/11/2024 PREGN SHIVA, INITI AL SCREE N eos (absolute) 0.1 x10e3 /uL 0.0-0. 4 Not Available [facility] ([facility]) [address] [place], [address], 10/23/2024 07:17:49 10/10/19 25 10/11/2024 PREGN SHIVA, INITI AL SCREE N baso (absolute) 0.0 x10e3 /uL 0.0-0. 2 Not Available [facility] ([facility]) [address] [place], [address], 10/23/2024 07:17:49 10/10/1910/11/2024 PREGN SHIVA, INITI AL SCREE N immature granulocytes 1 % notest ab. Not Available [facility] ([facility]) [address] [place], [address], 10/23/2024 07:17:49 10/10/1910/11/2024 PREGN SHIVA, INITI AL SCREE N immature grans (abs) 0.0 x10e3 /uL 0.0-0. 1 Not Available [facility] ([facility]) [address] [place], [address], 10/23/2024 07:17:49 10/10/1910/11/2024 PREGN SHIVA, INITI AL SCREE N specific gravity 1.009 1.005- 1.030 Not Available [facility] ([facility]) [address] [place], [address], 10/23/2024 07:17:49 10/10/1910/11/2024 PREGN SHIVA, INITI AL SCREE N pH 6.5 5.0-7. 5 Not Available [facility] ([facility]) [address] [place], [address], 10/23/2024 07:17:49 10/10/1910/11/2024 PREGN SHIVA, INITI AL SCREE N urine-color YELLOW yellow Not Available [facility] ([facility]) [address] [place], [address], 10/23/2024 07:17:49 10/10/1910/11/2024 PREGN SHIVA, INITI AL SCREE N appearance CLEAR clear Not Available [facility] ([facility]) [address] [facility], [place], [address], 10/23/2024 07:17:49 10/10/19 25 10/11/2024 PREGN SHIVA, INITI AL SCREE N WBC esterase NEGATI VE negati ve Not Available [facility] ([facility]) [address] [place], [address], 10/23/2024 07:17:49 10/10/1910/11/2024 PREGN SHIVA, INITI AL SCREE N protein NEGATI VE negati ve/tra ce Not Available [facility] ([facility]) [address] [facility], [place], [address], 10/23/2024 07:17:49 10/10/1910/11/2024 PREGN SHIVA, INITI AL SCREE N glucose NEGATI VE negati ve Not Available [facility] ([facility]) [address] [place], [address], 10/23/2024 07:17:49 10/10/1910/11/2024 PREGN SHIVA, INITI AL SCREE N ketones NEGATI VE negati ve Not Available [facility] ([facility]) [address] [place], [address], 10/23/2024 07:17:49 10/10/1910/11/2024 PREGN SHIVA, INITI AL SCREE N occult blood NEGATI VE negati ve Not Available [facility] ([facility]) [address] [place], [address], 10/23/2024 07:17:49 10/10/19 25 10/11/2024 PREGN SHIVA, INITI AL SCREE N bilirubin NEGATI VE negati ve Not Available [facility] ([facility]) [address] [place], [address], 10/23/2024 07:17:49 10/10/19 25 10/11/2024 PREGN SHIVA, INITI AL SCREE N urobilinogen ,semi-qn 0.2 mg/dL 0.2-1. 0 Not Available [facility] ([facility]) [address] [facility], [place], [address], 10/23/2024 07:17:49 10/10/19 25 10/11/2024 PREGN SHIVA, INITI AL SCREE N nitrite, urine NEGATI VE negati ve Not Available [facility] ([facility]) [address] [facility], [place], [address], 10/23/2024 07:17:49 10/10/19 25 10/11/2024 PREGN SHIVA, INITI AL SCREE N microscopic examination COMMEN T Micro scopi c follo ws if indic ated. Not Available [facility] ([facility]) [address] [facility], [place], [address], 10/23/2024 07:17:49 10/10/19 25 10/11/2024 PREGN SHIVA, INITI AL SCREE N microscopic examination SEE BELOW: Micro scopi c was indic ated and was perfo rmed. Not Available [facility] ([facility]) [address] [facility], [place], [address], 10/23/2024 07:17:49 10/10/19 25 10/12/2024 PREGN SHIVA, INITI AL SCREE N urine culture,pren atal, w/gbs FINAL REPORT Not Available [facility] ([facility]) [address] [facility], [place], [address], 10/23/2024 07:17:49 10/10/19 25 10/11/2024 MICRO SCOPI C EXAMI NATIO N WBC 0-5 /hpf 0-5 Not Available [facility] ([facility]) [address] [facility], [place], [address], 10/23/2024 07:17:51 10/10/19 25 10/11/2024 MICRO SCOPI C EXAMI NATIO N RBC 0-2 /hpf 0-2 Not Available [facility] ([facility]) [address] [facility], [place], [address], 10/23/2024 07:17:51 10/10/19 25 10/11/2024 MICRO SCOPI C EXAMI NATIO N epithelial cells (non renal) 0-10 /hpf 0-10 Not Available [facility] ([facility]) [address] [facility], [place], [address], 10/23/2024 07:17:51 10/10/1910/11/2024 MICRO SCOPI C EXAMI NATIO N casts None seen /lpf nonese en Not Available [facility] ([facility]) [address] [facility], [place], [address], 10/23/2024 07:17:51 10/10/19 25 10/11/2024 MICRO SCOPI C EXAMI NATIO N bacteria None seen nonese en/few Not Available [facility] ([facility]) [address] [facility], [place], [address], 10/23/2024 07:17:51 10/10/19 25 10/11/2024 UA/M W/RFL X CULTU RE, ROUTI NE urinalysis reflex COMMEN T This speci men will not refle x to a Urine Cultu re. Not Available [facility] ([facility]) [address] [facility], [place], [address], 10/23/2024 07:17:51 10/10/19 25 10/22/2024 CYSTI C FIBRO SIS, 97 VARIA NTS ethnicity Commen t Not Provi ded Not Available [facility] ([facility]) [address] [facility], [place], [address], 10/23/2024 07:17:52 10/10/19 25 10/22/2024 CYSTI C FIBRO SIS, 97 VARIA NTS specimen type Commen t Whole Blood Not Available [facility] ([facility]) [address] [place] [address], [place], [address], 10/23/2024 07:17:52 10/10/1910/22/2024 CYSTI C FIBRO SIS, 97 VARIA NTS indication Commen t Carolina er Test / Scree marissa Not Available [facility] ([facility]) [address] [facility], [place], [address], 10/23/2024 07:17:52 10/10/1910/22/2024 CYSTI C FIBRO SIS, 97 VARIA NTS result: Commen t NEGAT NERY Not Available [facility] ([facility]) [address] [facility], [place], [address], 10/23/2024 07:17:52 10/10/1910/22/2024 CYSTI C FIBRO SIS, [...] olivier n Table . Not Available [facility] ([facility]) [address] [facility], [place], [address], 10/23/2024 07:17:52 10/10/1910/22/2024 CYSTI C FIBRO SIS, [...] To acces s [facility] elshana fritz e visit [email or web address] :[email or web address] [email or web address] daya [email or web address] or call [phone]). Not Available [facility] ([facility]) [address] [facility], [place], [address], 10/23/2024 07:17:52 10/10/1910/22/2024 CYSTI C FIBRO SIS, [...] (PMID :[id number]) . Not Available [facility] ([facility]) [address] [facility], [place], [address], 10/23/2024 07:17:52 10/10/1910/22/2024 CYSTI C FIBRO SIS, 97 VARIA NTS comments Commen t This inter preta tion is based on the clini nabor infor matio n provi ded and the curre nt under stand ing of the molec ular marquez ics of the disor miri(s ) teste d. Infor matio n about the disor miri(s ) louann shirley is avail able at https :// [facility] orp.c om. Not Available [facility] ([facility]) [address], [place], [address], 10/23/2024 07:17:52 10/10/19 25 10/22/2024 CYSTI C FIBRO SIS, 97 VARIA NTS methods/limi tations Commen t Next- gener ation Seque ncing (NGS) : Genom ic regio ns of inter est in the CFTR gene are selec chava using the Informed Trades ience (R) hybri dizat ion captu re metho d and seque nced via the Boost My Ads(R ) NGS platf orm. Seque ncing reads [...] ards and guide lines (Rich ards, PMID: [id number]; Britney, PMID: 13184 774). Navin sis is restr icted to [...] e darren cteri stics deter mined by [employer]. It has not been clear ed or appro ronny by the Food and Drug Admin istra tion. Not Available [facility] ([facility]) [address] [facility], [place], [address], 10/23/2024 07:17:52 10/10/19 25 10/22/2024 CYSTI C [...] ve risk estim ates. Not Available [facility] ([facility]) [address] [facility], [place], [address], 10/23/2024 07:17:52 10/10/19 25 10/22/2024 CYSTI C FIBRO SIS, 97 VARIA NTS references Commen t Dejania herman JL, Astvera ry C, Cutti ng GR et al. CFTR varia nt testi ng: a techn ical stand mercedes of the Harjinder Murray ge of Medic al Marquez ics and Genom ics ([facility] ). Marquez Med 22, 4288 (2020 ). PMID: [id number] 922 [place] T, Soham moffett SG, Mandeep brink BA, et al. Cysti c Fibro sis and Conge nital Absen ce of the Vas Defer ens. 2000 [Upda chava 2016Sep 29]. In: Jos MP, Shayna reyes HH, Robert RA, et al., jair rs. GeneR candelario guerra(R) [Inte rnet] . PMID: [id number] 428 Not Available [facility] ([facility]) [address] [facility], [place], [address], 10/23/2024 07:17:52 10/10/1910/22/2024 CYSTI C FIBRO SIS, 97 VARIA NTS director review/relea se Commen t Marvin nent Type Perfo rmed At Labor atory Direc tor Techn ical Labor atory Sai Bone , compo nent, Corpo ratio n of , PhD proce [facility], [address] [employer] , [place], [address] Techn ical Labor atory Sai Bone , compo nent, Corpo ratio n of , PhD navin sis [facility], [address] [employer] , [place], [address] Profe john al Labor atory Armando Porat h, compo nent Corpo ratio n of PhD, [employer], [address], [place], [address] Elect celso harvey relea sed by Armando merrill, PhD, FAC Not Available [facility] ([facility]) [address] [place], [address], 10/23/2024 07:17:52 10/10/1910/22/2024 CYSTI C FIBRO SIS, 97 VARIA NTS pdf . Not Available [facility] ([facility]) [address] [place], [address], 10/23/2024 07:17:52 10/10/1910/16/2024 SPINA L MUSCU LAR ATROP HY (SMA) ethnicity COMMEN T Not Provi ded Not Available [facility] ([facility]) [address] [place], [address], 10/23/2024 07:17:53 10/10/1910/16/2024 SPINA L MUSCU LAR ATROP HY (SMA) specimen type COMMEN T Whole Blood Not Available [facility] ([facility]) [address] [place], [address], 10/23/2024 07:17:53 10/10/19 25 10/16/2024 SPINA L MUSCU LAR ATROP HY (SMA) indication COMMEN T Carolina er Test / Scree marissa Not Available [facility] ([facility]) [address] [place], [address], 10/23/2024 07:17:53 10/10/1910/16/2024 SPINA L MUSCU LAR ATROP HY (SMA) result: COMMEN T NEGAT NERY Not Available [facility] ([facility]) [address] [place], [address], 10/23/2024 07:17:53 10/10/19 25 10/16/2024 SPINA L [...] affec chava pregn shiva. Not Available [facility] ([facility]) [address] [facility], [place], [address], 10/23/2024 07:17:53 10/10/1910/16/2024 SPINA L MUSCU LAR [...] idual 's partn er. Marquez ic couns eliguillermo servi jodie are avail able. To acces s [facility] Marquez ic Couns caridad fritz e visit https ://[facility] deb [facility] orp.c om/ge netic -coun daya stevenson or call (776) [facility] ([phone]). Not Available [facility] ([facility]) [address] [facility], [place], [address], 10/23/2024 07:17:53 10/10/1910/16/2024 SPINA L MUSCU LAR [...] nios, and decre ased movem ent. (Ela jaimesmaria esther soraya, PMID: [id number]). Treat ment is suppo rtive . [...] disea se sever ity (Lisa Dodd, PMID: 96177 208). Indiv idual s with one copy [...] carolina er (2+0) . Not Available [facility] ([facility]) [address] [facility], [place], [address], 10/23/2024 07:17:53 10/10/1910/16/2024 SPINA L MUSCU LAR ATROP HY (SMA) comments COMMEN T This inter preta tion is based on the clini nabor infor matslime n provi ded and the curre nt under stand ing of the [employer] uleileen marquez ics of the disor miri(s ) teste d. Infor matslime n about the disor miri(s ) teste d is avail able at https ://[facility] orp.c om. Not Available [facility] ([facility]) [address], [place], [address], 10/23/2024 07:17:53 10/10/19 25 10/16/2024 SPINA L [...] could inter fere with copy numbe r naivn sis. SMN2 copy numbe r is asses [...] e darren cteri stics deter mined by [employer]. It has not been clear ed or appro ronny by the Food and Drug Admin istra tion. [employer] is a subsi diary of [employer] ratio n of Amarya Chengi ngs, using the brand [employer]. Not Available [facility] [employer] ([facility]) [address] [facility], [place], [address], 10/23/2024 07:17:53 10/10/19 25 10/16/2024 SPINA L [...] 80T c.*3+ 80T >G SNP >G SNP Ashjovana hossein 92.8% 1 in High 1 in 1 in i 67 risk 918 5400 Jewis h 93.6% 1 in High 1 in 1 in 59 risk 907 5600 Black 90.3% 1 in 1 in 34 1 in 1 in 72 375 4200 Hispa nelly 92.6% 1 in 1 in 1 in 1 in 68 741 759 7338 White 95.0% 1 in 1 in 29 [...] detec chava in this assay Reese. PMID 60581 085 ; Charbel. PMID 62852 250 ; Sugar man . PMID 86812 307 Not Available [facility] ([facility]) [address] [facility], [place], [address], 10/23/2024 07:17:53 10/10/1910/16/2024 SPINA L MUSCU LAR ATROP HY (SMA) references COMMEN T Brenda herman JL, Maneul encarnacion C, Dulce Maria bruno A et al. Adden dum: Techn ical stand ards and guide lines for spina l muscu lar atrop hy testi ng. Marquez Med 23, 2202 (2020 ). [Adde ndum to PMID: 34916 580] Prior TW, Felicia ME, Karen Enriquez. Spina l Muscu lar Atrop hy. 1999Oct 21 (Upda chava 2019Aug 26). In: Jos MP, Shayna reyes HH, Robert RA, et al., jari rs. GeneR candelario guerra(R) [Inte rnet] . PMID: [id number] Not Available [facility] ([facility]) [address] [facility], [place], [address], 10/23/2024 07:17:53 10/10/19 25 10/16/2024 SPINA L MUSCU LAR ATROP HY (SMA) director review/relea se COMMEN T Marvin nent Type Perfo rmed At Labor atory Direc tor Techn ical Esote marissa Marquez ic Brook Warner, PhD, compo nent, Labor atori Clas[employer]ing, [employer], FAC proce ssing [address] , [place], [address] Techn ical Esote marissa Marquez ic Brook Warner, PhD, compo nent, Labor atori Classting, [employer], [employer] navin sis [address] , [place], [address] Profe jenelleon al Esote marissa Marquez ic Brook Warner, PhD, compo nent Labor atori es, LLC, [facility] [address] [place], [address] Elect celso harvey relea sed by Ramona Martino, PhD, FAC Not Available [facility] ([facility]) [address] [place], [address], 10/23/2024 07:17:53 10/10/1910/16/2024 SPINA L MUSCU LAR ATROP HY (SMA) pdf . Not Available [facility] ([facility]) [address] [place], [address], 10/23/2024 07:17:53 10/10/19 25 10/11/2024 [id number] 9 10 DRUG- BUND amphetamines , urine NEGATI VE NG/mL cutoff =1000 Amphe tamin e test inclu christine Amphe tamin e and Metha mphet amine . Not Available [facility] ([facility]) [address] [place], [address], 10/23/2024 07:17:54 10/10/19 25 10/11/2024 40081 9 10 DRUG- BUND barbiturates NEGATI VE NG/mL cutoff =200 Not Available [facility] ([facility]) [address] [place], [address], 10/23/2024 07:17:54 10/10/19 25 10/11/2024 85102 9 10 DRUG- BUND benzodiazepi graciela NEGATI VE NG/mL cutoff =200 Not Available [facility] ([facility]) [address] [place], [address], 10/23/2024 07:17:54 10/10/19 25 10/11/2024 56902 9 10 DRUG- BUND cannabinoid SEE FINAL RESULT S Not Available [facility] ([facility]) [address] [place], [address], 10/23/2024 07:17:54 10/10/19 25 10/11/2024 32076 9 10 DRUG- BUND cocaine (metab.) NEGATI VE NG/mL cutoff =300 Not Available [facility] ([facility]) [address] [place], [address], 10/23/2024 07:17:54 10/10/19 25 10/11/2024 02895 9 10 DRUG- BUND methaqualone NEGATI VE NG/mL cutoff =300 Not Available [facility] ([facility]) [address] [place], [address], 10/23/2024 07:17:54 10/10/19 25 10/11/2024 86193 9 10 DRUG- BUND opiates NEGATI VE NG/mL cutoff =2000 Opiat e test inclu christine Codei ne and Morph ine only. Not Available [facility] ([facility]) [address] [place], [address], 10/23/2024 07:17:54 10/10/19 25 10/11/2024 07373 9 10 DRUG- BUND phencyclidin e NEGATI VE NG/mL cutoff =25 Not Available [facility] ([facility]) [address] [facility], [place], [address], 10/23/2024 07:17:54 10/10/19 25 10/11/2024 81916 9 10 DRUG- BUND methadone screen, urine NEGATI VE NG/mL cutoff =300 Not Available [facility] ([facility]) [address] [place], [address], 10/23/2024 07:17:54 10/10/19 25 10/11/2024 03785 9 10 DRUG- BUND propoxyphene , urine NEGATI VE NG/mL cutoff =300 Eff ectiv e November 25, 2024, this test will be disco ntinu ed. Pleas e conta ct your [facility] repre senta tive for sugge sted repla cemen t test optio ns. Not Available [facility] ([facility]) [address] [facility], [place], [address], 10/23/2024 07:17:54 10/10/1910/14/2024 CANNA BINOI D CONFI RMATI ON, UR cannabinoid Positi ve cutoff =50 abnormal Not Available [facility] ([facility]) [address] [facility], [place], [address], 10/23/2024 07:17:56 10/10/19 25 10/14/2024 CANNA BINOI D CONFI RMATI ON, UR carboxy THC conf, MS, ur 42 NG/mL cutoff =15 Not Available [facility] ([facility]) [address] [facility], [place], [address], 10/23/2024 07:17:56 10/10/19 25 10/12/2024 RESUL T result 1 Commen t Mixed uroge nital michelle 10,00 0-25, 000 colon y formi ng units per mL Not Available [facility] ([facility]) [address] [facility], [place], [address], 10/23/2024 07:17:56 10/10/1910/11/2024 VARIC SHARRI- ZOSTE R V AB, IGG [...] not been acqui red. Not Available [facility] ([facility]) [address] [facility], [place], [address], 10/23/2024 07:17:57 10/10/19 25 10/10/2024 edinb urgh postn atal depre ssion scale * Score 7 Not Available In-Office Order Internal Use Only DO Not Attach Compendium DO Not Attach Compendium, Do Not Delete/merge, 10/10/2024 13:48:04 10/10/1910/10/2024 pregn shiva test, urine [...] 12:15:15 10/10/1910/10/2024 urina lysis , dipst ick Protein Negati [...] 10/10/2024 urina lysis , dipst ick Specific Albion 1.020 Not Available In-Off ice Order Internal [...] 25 10/10/2024 urina lysis , dipst ick Appearance Clear Not Available In-Offi ce Order Internal Use Only DO Not Attach Compendium DO Not Attach Compendium, Do Not Delete/merge, 10/10/2024 12:15:15 10/10/19 25 10/10/2024 urina lysis , dipst ick Color Yellow Not Available In-Office Order Internal Use Only DO Not Attach Compendium DO Not Attach Compendium, Do Not Delete/merge, 10/10/2024 12:15:15 11/12/19 25 11/14/2024 MATER NIT21 PLUS CORE pdf . Not Available [facility] ([facility]) [address] [facility], [place], [address], 11/15/2024 07:16:07 11/12/19 25 11/15/2024 MATER NIT21 PLUS CORE gestation SINGLE TON Not Available [facility] ([facility]) [address] [facility], [place], [address], 11/15/2024 07:16:07 11/12/19 25 11/15/2024 MATER NIT21 PLUS CORE fraction 19% Not Available [facility] ([facility]) [address] [facility], [place], [address], 11/15/2024 07:16:07 11/12/19 25 11/15/2024 MATER NIT21 PLUS CORE gestational age > or = 9W: YES Not Available [facility] ([facility]) [address] [facility], [place], [address], 11/15/2024 07:16:07 11/12/19 25 11/15/2024 MATER NIT21 PLUS CORE test result NEGATI VE Not Available [facility] ([facility]) [address] [place], [address], 11/15/2024 07:16:07 11/12/1911/15/2024 MATER NIT21 PLUS CORE sleep lab technician comments SOWMYA Hatfield speci men showe d an expec chava repre senta tion of chrom osome 21, 18 and 13 mater ial. Clini nabor corre latio n is michelle garcia. Not Available [facility] ([facility]) [address] [facility], [place], [address], 11/15/2024 07:16:07 11/12/19 25 11/15/2024 MATER NIT21 PLUS CORE approved by SOWMYA cruz MD, PhD, [facility] tor, Seque nom Labor atori es Not Available [facility] ([facility]) [address] [place], [address], 11/15/2024 07:16:07 11/12/1911/15/2024 MATER NIT21 PLUS CORE trisomy 21 (down syndrome) NEGATI VE Not Available [facility] ([facility]) [address] [place], [address], 11/15/2024 07:16:07 11/12/19 25 11/15/2024 MATER NIT21 PLUS CORE trisomy 18 (mensah syndrome) NEGATI VE Not Available [facility] ([facility]) [address] [place], [address], 11/15/2024 07:16:07 11/12/19 25 11/15/2024 MATER NIT21 PLUS CORE trisomy 13 (patau syndrome) NEGATI VE Not Available [facility] ([facility]) [address] [place], [address], 11/15/2024 07:16:07 11/12/1911/15/2024 MATER NIT21 PLUS CORE sex COMMEN T Consi stent with Femal e Not Available [facility] ([facility]) [address] [place], [address], 11/15/2024 07:16:07 11/12/19 25 11/15/2024 MATER NIT21 PLUS CORE negative predictive value NOTE The Negat nery Predi ctive Value (NPV) for triso my 21, 18, and 13 is great er than 99%. The NPV for SCA and ESS canno t be calcu lated as SCA and ESS are only repor chava when an abnor malit y is detec chava. Not Available [facility] ([facility]) [address] [place], [address], 11/15/2024 07:16:07 11/12/19 25 11/15/2024 MATER NIT21 PLUS CORE positive predictive value N/A Not Available [facility] ([facility]) [address] [place], [address], 11/15/2024 07:16:07 11/12/19 25 11/15/2024 MATER NIT21 [...] yet been valid ated. Not Available [facility] ([facility]) [address] [facility], [place], [address], 11/15/2024 07:16:07 11/12/1911/15/2024 MATER NIT21 PLUS CORE test method COMMEN T See Notes Circu latin g cell- free DNA was purif ied from the plasm a compo nent of mater nal blood . The extra cted DNA was then conve rted into a [employer] DNA veronica ry for aneup loidy navin [...] s 16 and 22. Not Available [facility] ([facility]) [address] [facility], [place], [address], 11/15/2024 07:16:07 11/12/1911/15/2024 MATER NIT21 PLUS CORE performance COMMEN T The perfo rmanc e darren cteri stics of the Mater niT(R ) 21 PLUS labor atory -deve loped test (LDT) have been deter mined in a clini nabor valid ation study with pregn ant women at incre ased risk for chrom osoma l aneup loidy .[1-4 ] Not Available [facility] ([facility]) [address] [facility], [place], [address], 11/15/2024 07:16:07 11/12/19 25 11/15/2024 MATER NIT21 PLUS CORE performance characterist ics NOTE ----- ----- ----- ----- ----- ----- ----- ----- ----- ----- ----- ---- ! Sex ! Accur acy: 99.4% ! !---- ----- ----- ----- ----- ----- ----- ----- ----- ----- ----- ---! ! Regio n (trip shirley syndr ome) ! Est. Sens# ! Est. Spec ! !---- ----- ----- ----- ----- ----- ----- ----- ----- ----- ----- ---! ! Myrna my 21 (Down Syndr ome) ! 99.1% ! 99.9% ! !---- ----- ----- ----- ----- ----- ----- ----- ----- ----- ----- ---! ! Myrna my 18 (Eleazarwa rds Syndr ome) ! >99.9 % ! 99.6% ! !---- ----- ----- ----- ----- ----- ----- ----- ----- ----- ----- ---! ! Myrna my 13 (Pata u Syndr ome) ! 91.7% ! 99.7% ! !---- ----- ----- ----- ----- ----- ----- ----- ----- ----- ----- ---! ! Sex Chrom osome Aneup letty ward## ! 96.2% ! 99.7% ! !---- ----- ----- ----- ----- ----- ----- ----- ----- ----- ----- ---! * As repor chava in ISCA datab ase nstd3 7 [http [email or web address] [email or web address] .[email or web address]/ dbvar /stud ies/n std37 / ] # Estim ated Sensi tivit y. Sensi tivit y estim ated acros s the obser ronny size distr ibuti on of each syndr ome [per ISCA datab ase nstd3 7] and acros s the range of fract ions obser rnony in routi ne clini nabor NIPT. Actua l sensi tivit y can also be influ enced by other facto rs such as the size of the event , total seque nce count s, ampli ficat ion bias, or seque nce bias. ## Singl eton gesta tion only. Not Available [facility] ([facility]) [address] [facility], [place], [address], 11/15/2024 07:16:07 11/12/19 25 11/15/2024 MATER NIT21 [...] ne(R) and Fragm in(R) ). Not Available [facility] ([facility]) [address] [facility], [place], [address], 11/15/2024 07:16:07 11/12/19 25 11/15/2024 MATER NIT21 PLUS CORE note COMMEN T See Notes [employer] is a subsi diary of Labor atory Cor[employer] ratio n of Harjinder roberts, using the brand [employer]. This test was devel oped and its perfo rmanc e darren cteri stics deter mined by [employer]. It has not been clear ed or appro ronny by the Food and Drug Admin istra tion. This labor atory is certi fied under the Clini nabor Labor atory Impro vemen t Amend ments (CLIA ) as quali fied to perfo rm high compl exity clini nabor labor atory testi ng and accre dited by the Trevor layton of Harjinder lazaro Patho logis ts (CAP) . If there is futur e clini nabor need for addin g Mater niT GENOM E testi ng, this speci men will be avail able until term. [facility] sampl es will not be retai phuc beyon d 60 days. [facility] patie nts will have to send a new sampl e for re-se quenc ing (LCA Test Code: 99074 4). Not Available [facility] ([facility]) [address] [facility], [place], [address], 11/15/2024 07:16:07 11/12/19 25 11/15/2024 MATER NIT21 PLUS CORE references COMMEN T 1. Rommel LAYTON, et al. Marquez Med. 2012; 14(3) :296- 305. 2. Navi MCGEE, et al. Prena t Diag. 2013; 33(6) :591- 597. 3. Kenryo C, et al. Clin Chem. 2015 Nov;6 1(4): 608-6 16. 4. Rommel LAYTON, et al. Marquez Med. 2011; 13(11 ):913 -920. 5. ACOG/ SMFM Pract ice Bulle tin No. 226, May 2020. Not Available [facility] ([facility]) [address] [facility], [place], [address], 11/15/2024 07:16:07 11/12/19 25 11/11/2024 urina lysis , dipst ick Leukocytes Negati ve Not Available In-Office Order Internal Use Only DO Not Attach Compendium DO Not Attach Compendium, Do Not Delete/merge, 11/08/2024 08:27:09 11/12/19 25 11/11/2024 urina lysis , dipst ick Nitrite negati ve Not Available In-Office Order Internal Use Only DO Not Attach Compendium DO Not Attach Compendium, Do Not Delete/merge, [id number] 11/08/2024 08:27:09 11/12/19 25 11/11/2024 urina lysis , dipst ick Urobilinogen .2 Not Available In-Of fice Order Internal Use Only DO Not Attach Compendium DO Not Attach Compendium, Do Not Delete/merge, [id number] 11/08/2024 08:27:09 11/12/19 25 11/11/2024 urina lysis [...] 11/11/2024 urina lysis , dipst ick Specific Albion 1.015 Not Available In-Off ice Order Internal [...] 12/16/2024 urina lysis , dipst ick Specific [place] 1.025 Not Available In-Off ice Order Internal Use Only DO Not Attach Compendium DO Not Attach Compendium, Do Not Delete/merge, [id number] 12/16/2024 12:14:13 12/17/19 25 12/16/2024 urina lysis , dipst ick Ketone Trace Not Available In-Office Order Internal Use Only DO Not Attach Compendium DO Not Attach Compendium, Do Not Delete/merge, [id number] 12/16/2024 12:14:13 12/17/19 25 12/16/2024 urina lysis [...] Attach Compendium, Do Not Delete/merge, 12/16/2024 12:14:13 11/21/19 25 11/14/2024 US, obste tric, 2nd trime ster No observ ation record ed. cdernie Hernandez [facility] Scheduling [address] [facility] , [place], [address], 11/21/2024 10:08:48 12/12/19 25 12/11/2024 US, obste tric, follo w-up No observ ation record ed. [facility]) [address] [facility], [place], [address], 12/12/2024 16:53:49 01/03/20 25 01/01/2025 US, obste tric, mater nal evalu ation + anato my No observ ation record ed. [facility]) [address] [place], [address], 01/03/2025 09:52:40 Result Notes None recorded. Problems Name Problem SNOMED Code Status Onset Date Resolution Date Notes Provider Name and Address Organization Details Recorded Time Pregnanc y 65037702 Completed 202111/08/2022 TARA Sán[place] - [facility] 5 12:18:14 Marijuan a user [id number] Completed Encourag e cessatio n [place] [facility] 3 16:17:25 Rubella non-immu ne 928077074 Completed Offer MMR after delivery T[place] [facility] 3 16:17:25 Past pregnanc y history of prematur e delivery 488259625 Active 2021 Induced secondar y to oligohyd ramnios? [place] [facility] 16:17:25 Past pregnanc y history of prematur e delivery 831203382 Completed 2021 Induced secondar y to oligohyd ramnios? [place] [facility] 16:17:25 Tobacco user 184228341 Completed T[place] [facility] 3 16:17:25 Depressi ve disorder 14929665 Completed [place] [facility] 3 16:17:25 Anxiety disorder 320940679 Completed [place] [facility] 3 16:17:25 Seizure disorder 923648509 Completed Pt states the seizures stopped after removal of Nexplano n T[place] [facility] 3 16:17:24 History of alcoholi sm 679326038 Completed T[place] [facility] 3 16:17:25 Group B Streptoc occus carrier 86922195783 03 Completed 2022 Chanell Hernandez [place] [facility] 3 16:17:25 Group B Streptoc occus carrier 88049926814 03 Active 2022 Chanell [place] [facility] 3 16:17:25 Pregnanc y 86218865 Active 2024 Chanell Hernandez [place] [facility] 5 12:18:13 Rubella non-immu ne 469577926 Active Alyssa Douglas MD Attn: Chris stevenson,[address] [place], [address], [facility] - [facility] 5 15:00:32 Radha sommer user 688591879 Active Alyssa Douglas MD Attn: Chris g,[address] [place], [address], [facility] - SI 5 15:00:39 Problem Notes None recorded. Procedures Surgical History Date Name Laterality Status Provider Name and Address Organization Details Recorded Time 01/25/2024 Date of Last Pap Smear completed Maritza Park RN [facility] 01/30/2024 16:16:52 Imaging Results Imaging Date Name Status LastModified by Organiz ation Details LastModified Time 11/14/2024 US, obstetric, 2nd trimester completed kierra Hernandez [facility] Scheduling [address] [facility] [place], [address], 11/21/2024 10:08:48 12/11/2024 US, obstetric, follow-up completed [facility]) [address] [place] [address], [address], 12/12/2024 16:53:49 01/01/2025 US, obstetric, maternal evaluation + anatomy completed [address], [address], 01/03/2025 09:52:40 Procedure Notes None recorded. Medical Equipment None Reported. Allergies No known drug allergies Medications Name Sig Start Date Stop Date Status Note LastModified by Organization Details LastModified Time amoxicillin 500 mg capsule TAKE 1 CAPSULE BY MOUTH TWICE DAILY FOR 7 DAYS active Not Available Not Available No t Available clindamycin HCl 300 mg capsule TAKE [...] SPIT 15 ML IN MOUTH TWICE DAILY active Not Available Not Available No t Available active Not Available Not Avai lable [...] Updated DateTime 01/25/2024 165.1 cm 19.1 kg/m2 84636.4 g 109 mm[Hg] 73 mm[Hg] Chanell Hernandez MA [facility] 4 12:10:02 Date Recorded Body height Body mass index (BMI) Body weight Heart rate Systolic blood pressure Diastolic blood pressure Provider Name and Address Organization Details Last Updated DateTime 5 165.1 cm 21.8 kg/m2 55414.0 3 g 76 /min 115 mm[Hg] 81 mm[Hg] Cierra ruiz MA [facility] 5 12:08:54 Date Recorded Body height Body mass index (BMI) Body weight Heart rate Systolic blood pressure Diastolic blood pressure Provider Name and Address Organization Details Last Updated DateTime 5 165.1 cm 21.8 kg/m2 70074.6 g 93 /min 109 mm[Hg] 76 mm[Hg] Cierra ruiz MA [facility] 5 10:19:51 Date Recorded Body height Body mass index (BMI) Body weight Systolic blood pressure Diastolic blood pressure Provider Name and Address Organization Details Last Updated DateTime 12/16/2024 165.1 cm 22.6 kg/m2 32416.84 g 106 mm[Hg] 73 mm[Hg] Chanell Hernandez MA [facility] 5 12:10:38 Date Recorded Body height Body mass index (BMI) Body weight Systolic blood pressure Diastolic blood pressure Provider Name and Address Organization Details Last Updated DateTime 01/14/2025 165.1 cm 22.8 kg/m2 07056.15 g 130 mm[Hg] 76 mm[Hg] Chanell Hernandez MA [facility] 5 10:37:31 Social History Question Answer Notes LastModified by Organizat ion Details LastModified Time Tobacco Smoking Status Former Smoker Cierra Drew MA [facility], [facility] 10/10/2024 12:13:13 Do You Have An Advance Directive? No Information n ot available 06/09/2022 How Many Years Have You Consumed Alcohol? 16 Information not available 06/09/2022 Are You Blind Or Do You Have Difficulty Seeing? No Information n ot available 05/26/2022 Is Blood Transfusion Acceptable In An Emergency? Yes Information not available 06/09/2022 What Is Your Level Of Caffeine Consumption? None Information not available 05/26/2022 In The 14 Days Before Symptom Onset, Have You Had Close Contact With A Laboratory-confirm ed COVID-19 While That Case Was Ill? No Information n ot available 06/09/2022 In The 14 Days Before [...] Of Diet Are You Following? REGULAR Information n ot available 05/26/2022 Which Illicit Or Recreational Drugs Have You Used? [place] Information not available 05/26/2022 What Is The Highest Grade Or Level Of School You Have Completed Or The Highest Degree You Have Received? [id number] Information not available 05/26/2022 Have There Been Any Changes To Your Family Or Social Situation? No Information no t available 05/26/2022 Are There Any Guns Present In Your Home? No Information not available 05/26/2022 Which Of Your Hands Is Dominant? Right Information n ot available 05/26/2022 How Many Years Have You Used Illicit Or Recreational Drugs? 16 Information not available 06/09/2022 What Was The Date Of Your Most Recent Tobacco Screening? 01/14/2025 Information not available 01/14/2025 How Many Children Do You Have? 1 [...] Smoke? Yes Information no t available 06/09/2022 How Much Tobacco Do You Smoke? 1 PPW Information not available 05/26/2022 Do You Participate In Social Media? Yes Information not available 05/26/2022 Do You Use Sunscreen Routinely? Yes Information not available 05/26/2022 Has Tobacco Cessation Counseling Been Provided? Yes Information not available 01/17/2024 On What Date Was Tobacco Cessation Counseling Provided? 01/14/2025 Information not available 01/14/2025 Have You Used IV Drugs? No Information not available 05/26/2022 Are You Currently In School? No Information not available 05/26/2022 Sex: Female Functional Status Question Answer Note LastModified by Organizat ion Details LastModified Time Do you use any illicit or recreational drugs? Yes Information not available 05/26/2022 Do you or have you ever used any other forms of tobacco or nicotine? Yes Information not available 10/10/2024 What is your level of alcohol consumption? None Information not available 10/10/2024 Do you or have you ever used smokeless tobacco? Never used smokeless tobacco Information not available 10/10/2024 Are you currently employed? No Information not available 05/26/2022 Are you able to care for yourself? Yes Information not available 05/26/2022 Do you or have you ever used e-cigarettes or vape? Current user of electronic cigarettes Information not available 10/10/2024 What is your exercise level? Moderate Information not available 05/26/2022 Mental Status Question Answer Note LastModified by Organization D etails LastModified Time Do you feel stressed (tense, restless, nervous, or anxious, or unable to sleep at night)? [id number] Information not available 05/26/2022 Family History Relationship Description Onset Age of this Age Resolved Age Notes LastModified by Organization Details LastModified Time Mother Harmful pattern of use of alcohol [email or web address] Not available 2021 16:57:32 Mother Myocardial infarction [email or web address] Not available 06/09 11:35:46 Father Hypertensive disorder [email or web address] Not available 2021 11:35:38 Maternal Grandmother Diabetes mellitus [email or web address] Not available 2021 11:36:03 Medical History Condition Response Anxiety Disorder Y Heart Disease Y Other Y Depression Y Gynecological History Statement/Question Response Abnormal Pap [...] Immunizations Vaccine Type Date Status Note Provider Nam e and Address Organization Details Recorded Time Tdap 3 completed Not Available [facility] 01/14/2025 10:25:55 Tdap 2 completed Not Available [facility] 01/14/2025 10:25:55 Tdap 2 cancelled patient objection Alyssa Douglas MD Attn: Accounting[address] [place], [address], [facility] 08/03/2022 12:47:22 Past Encounters Encounter ID Performer Location Encounter Start Date Encounter Closed Date Diagnosis/Indication Diagnosis SNOMED-CT Code Diagnosis ICD10 Code Diagnosis Note [id number] MD Prudencio Arce [address] [place] [address] 06/09/2022 11:02:20 06/14/2022 09:32:14 Routine care 934045104 Z34.82 Past pregn shiva history of premature delivery 541714844 Z87.51 --IOL secondary to oligohydra mnios [id number] MD Prudencio Arce 14 [address] [place] [address] 07/06/2022 14:01:22 07/07/2022 08:45:01 Routine care 797448226 Z34.82 Past pregn shiva history of premature delivery 206135380 Z87.51 --IOL secondary to oligohydra mnios Rubella non-immune 12096 4009 Z01.84 Marijuana user 141047936 F12.90 Constipation 16763998 K5 9.00 [id number] MD Prudencio Arce [address] Smith [address] [place] [address] 08/03/2022 10:58:55 08/04/2022 10:30:03 Routine care 821547312 Z34.82 Tobacco user 025338559 Z 72.0 --Encourag e cessation Seizure disorder 2580879 02 G40.909 --Pt states the seizures stopped after removal of Nexplanon Past pregn shiva history of premature delivery 059014269 Z87.51 --IOL secondary to oligohydra mnios Anxiety disorder F41.9 --No medication Rubella non-immune 32684 4009 Z01.84 --Offer MMR after delivery Depressive disorder 3548 9007 F32.A --No medication Marijuana user 019078026 F12.90 --Encourag e cessation [id number] MD Prudencio Arce [address] Smith [address] [place] [address] 09/06/2022 11:59:52 09/07/2022 09:01:21 Routine care 737669740 Z34.82 Seizure disorder 7081762 02 G40.909 --Pt states the seizures stopped after removal of Nexplanon Tobacco user 403336296 Z 72.0 --Encourag e cessation History of alcoholism 16 0873679 F10.21 Past pregn shiva history of premature delivery 592806663 Z87.51 --IOL secondary to oligohydra mnios Anxiety disorder 06 F41.9 --No medication Rubella non-immune 61793 4009 Z01.84 --Offer MMR after delivery Depressive disorder 3548 9007 F32.A --No medication Marijuana user 560954207 F12.90 --Encourag e cessation [id number] MD Prudencio Arce [address] [place] [address] [place] [address] 09/20/2022 11:40:27 09/21/2022 11:16:05 Routine care 760108312 Z34.82 Past pregn shiva history of premature delivery 070282426 Z87.51 --IOL secondary to oligohydra mnios Seizure disorder 3985255 02 G40.909 --Pt states the seizures stopped after removal of Nexplanon Rubella non-immune 90937 4009 Z01.84 --Offer MMR after delivery Tobacco user 310652900 Z 72.0 --Encourag e cessation History of alcoholism 16 6187069 F10.21 Depressive disorder 3548 9007 F32.A --No medication Anxiety disorder F41.9 --No medication Marijuana user 200235965 F12.90 --Encourag e cessation [id number] MD Prudencio Arce 14 OB 4 [facility] Dr Smith [address] [place] [address] 10/03/2022 09:47:18 10/04/2022 12:36:48 Routine care 713024044 Z34.82 Past pregn shiva history of premature delivery 971629168 Z87.51 --IOL secondary to oligohydra mnios Seizure disorder 9467270 02 G40.909 --Pt states the seizures stopped after removal of Nexplanon Rubella non-immune 14917 4009 Z01.84 --Offer MMR after delivery Tobacco user 042050427 Z 72.0 --Encourag e cessation History of alcoholism 16 8905352 F10.21 Depressive disorder 3548 9007 F32.A --No medication Anxiety disorder F41.9 --No medication Marijuana user 567748321 F12.90 --Encourag e cessation [id number] MD Prudencio Arce 14 OB 4 [facility] Dr Smith [address] [place] [address] 10/11/2022 15:47:01 10/26/2022 10:40:10 Routine care 576053627 Z34.82 Past pregn shiva history of premature delivery 223507838 Z87.51 --IOL secondary to oligohydra mnios Tobacco user 609363584 Z 72.0 --Encourag e cessation Seizure disorder 6310884 02 G40.909 --Pt states the seizures stopped after removal of Nexplanon History of alcoholism 16 9650582 F10.21 Anxiety disorder F41.9 --No medication Rubella non-immune 79578 4009 Z01.84 --Offer MMR after delivery [id number] MD Prudencio Arce 14 OB 4 [facility] Dr Smith [address] [place] [address] 10/19/2022 16:11:02 10/20/2022 10:17:13 Routine care 758220743 Z34.82 Past pregn shiva history of premature delivery 586023248 Z87.51 --IOL secondary to oligohydra mnios Tobacco user 078411636 Z 72.0 --Encourag e cessation Seizure disorder 9859126 02 G40.909 --Pt states the seizures stopped after removal of Nexplanon History of alcoholism 16 0184027 F10.21 Anxiety disorder F41.9 --No medication Rubella non-immune 69523 4009 Z01.84 --Offer MMR after delivery [id number] MD Prudencio Arce 14 OB 4 [facility] Dr Smith [address] [place] [address] 10/26/2022 15:46:47 11/15/2022 10:19:58 Routine care 259959892 Z34.82 Past pregn shiva history of premature delivery 764529377 Z87.51 --IOL secondary to oligohydra mnios Tobacco user 873298208 Z 72.0 --Encourag e cessation Seizure disorder 0421107 02 G40.909 --Pt states the seizures stopped after removal of Nexplanon History of alcoholism 16 8689773 F10.21 Anxiety disorder F41.9 --No medication Rubella non-immune 06776 4009 Z01.84 --Offer MMR after delivery [id number] MD Prudencio Arce 14 OB 4 [facility] Dr Smith [address] [place] [address] 11/01/2022 10:44:51 11/02/2022 09:58:19 Routine care 904529471 Z34.82 Past pregn shiva history of premature delivery 496834838 Z87.51 --IOL secondary to oligohydra mnios Tobacco user 612175301 Z 72.0 --Encourag e cessation Seizure disorder 1530145 02 G40.909 --Pt states the seizures stopped after removal of Nexplanon History of alcoholism 16 0383401 F10.21 Anxiety disorder 2912299 06 F41.9 --No medication Rubella non-immune 82141 4009 Z01.84 --Offer MMR after delivery 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 [id number] MD Prudencio Arce [address] [place] [address] [place] [address] 01/25/2024 11:58:23 02/05/2024 09:31:54 Gynecologic examination 17817390 Z01.419 --CBE and pap smear performed Vaginal discharge 273781 006 N89.8 [facility] 833872281 Z30.9 --Start OCPs Body mass index less than 20 624567063 Z68.1 [id number] MD Prudencio Arce [address] [place] [address] [place] [address] 10/10/2024 11:26:03 10/12/2024 09:17:30 Routine care 773420471 Z34.81 test positive 377141132 Z32.01 Depression screening 171 307506 Z13.31 [id number] MD Prudencio Arce [address] [place] [address] [place] [address] 11/11/2024 10:11:05 11/15/2024 10:31:42 Routine care 175827959 Z34.82 Marijuana user 106833469 F12.90 --Encourag e cessation Rubella non-immune 02990 4009 Z01.84 --Offer MMR after delivery [id number] MD Prudencio Arec [address] [place] [address] 12/16/2024 11:13:14 12/26/2024 12:01:48 Normal 66176272 Z34.82 Marijuana user 342851165 F12.90 --Encourag e cessation Rubella non-immune 02039 4009 Z01.84 --Offer MMR after delivery Health Concerns Section Related Observation LastModified by Organization Detai ls LastModified Time None Recorded Concern Status LastModified by Organization Details LastModified Time None Recorded Advance Directives Directive N: Payers Encounter Date Sequence Insurance Name Policy Number Policy Asencio Covered Member ID Asencio Member ID Guarantor Name 01/25/2024 1 [facility] ON OR AFTER 02/25/21 (MEDICAID REPLACEMENT - HMO) Dominga Al [id number] Dominga Al 10/10/2024 1 [facility] ON OR AFTER 02/25/21 (MEDICAID REPLACEMENT - HMO) Dominga Al [id number] Dominga Al 11/11/2024 1 [facility] ON OR AFTER 02/25/21 (MEDICAID REPLACEMENT - HMO) Dominga Al [id number] Dominga Al 12/16/2024 1 [facility] ON OR AFTER 02/25/21 (MEDICAID REPLACEMENT - HMO) Dominga Al [id number] Dominga Al Notes Date Note Type Note Provider Name and Address Organization Details Recorded Time 01/25/2024 text/html Annual GYNReport ed bypatient.Menstrual cycle:Normal [...] PMDD Alyssa Douglas MD Attn: Accounting[address] [place], [address], [facility] 02/03/2024 22:13:56 10/10/2024 text/html See molly w sheet. Alyssa Douglas MD Attn: Accounting[address] [facility], [place], [address], [facility] 10/10/2024 13:48:51 11/11/2024 text/html See molly w sheet. Alyssa Douglas MD Attn: Accounting[address] , [place], [address], [place] [facility] 11/11/2024 11:20:45 12/16/2024 text/html See molly w sheet. Alyssa Douglas MD Attn: Accounting[address] , [place], [address], [place] [facility] 12/16/2024 13:12:45 OBGyn Episode Ob Episode Information Episode Created Date Number of Fetuses Patient Bloodtype Patient rh Status Prepregnancy Weight lbs Domestic Partner Domestic Partner Phone Father Name Judicial Law Clerk Status 10/10/19 25 1 CLOSED Fetus Data First Name Last Name Admitted to NICU Weight (g) Sex Living Outcome Pediatric Complications Fetus ID Race Codes Race Delivery Type , Spontane ous [id number] Mayco Calculation Initial Mayco Date Initial Exam [...] Domestic Partner Domestic Partner Phone Father Name Judicial Law Clerk Status 09/05/19 25 1 O Positive OPEN Fetus Data First Name Last Name Admitted to NICU Weight (g) Sex Living Outcome Pediatric Complications Fetus ID Race Codes Race Delivery Type [id number] Problems Problem Notes PRAPARE done Problem Name Start Date End Date Resolution Snomed Code Not e Marijuana user 381406936 Rubella non-immune 226968904 Mayco Calculation Initial Mayco Date Initial Exam Date Initial Exam Provider Initial Ultrasound Date Last Menstrual Period Date Ultra Sound Weeks Gestation 05/09/2025 09/05/2024 11/14/2024 08/02/2024 14 Eighteen To Twenty Week Mayco Update Ultra Sound Date Fundal Height At Umbil Quickening Date Ultra Sound Latest Weeks Gestation Final Mayco Confirmed By Final Mayco Confirmed Date Final Mayco Date Ultra Sound Latest Days Gestation 01/02/20 25 20 [email or web address] 11/20/2024 05/09/20 25 5 Pre-ashely Flowsheet Flowsheet Date 10/10/2024 Borges Score Blood Edema Fundus Height Fundus Units Glucose Ketones Leukocytes Nitrite Labor Signs Protein Cervic Dilation Cervic Effacement Cervic Station neg none none negative none neg 0cm Type Weight in lbs Pre/Post Dialysis Refused With clothes 131.565420282311 BP Diastolic BP Location Tested BP Systolic [...] in lbs Pre/Post Dialysis Refused With clothes 131.251856019554 BP Diastolic BP Location Tested BP Systolic [...] Weight in lbs Pre/Post Dialysis Refused Weight 135.351630387853 BP Diastolic BP Location Tested BP Systolic BP Type 73 R arm 106 sitting Fetus Heart Rate Present A 150's Present Fetus Movement A Yes Comments Patient admits to FM and den ies any other complaints. Will follow up in 4 weeks for routine care. Flowsheet Date 01/14/2025 Borges Score Blood Edema Fundus Height Fundus Units Glucose Ketones Leukocytes Nitrite Labor Signs Protein Cervic Dilation Cervic Effacement Cervic Station Type Weight in lbs Pre/Post Dialysis Refused Weight 137.082730852639 BP Diastolic BP Location Tested BP Systolic BP Type 76 R arm 130 sitting Fetus Heart Rate Present Fetus Movement Comments Menstrual History Last Menstrual Date Menses Monthly On Bcp Conception Prior Menses Frequency Hcg Plus Date Menarche Onset Age 1208/02/2024 true false 6 8 Genetic Screening And Infection History Question Response Note Patient's Age Will Be 35 Yea rs Or Older At Estimated Date of Delivery false Thalassemia (Azerbaijani, Vietnamese, Mediterranean, Or Background): MCV < 80 false Neural Tube Defect (Meningom yelocele, Spina Bifida, Or Anencephaly) false Congenital Heart Defect false Down Syndrome false Tk-Sachs (eg, Episcopal, Cajun, Armenian-Calhoun) f alse Dinah Disease false Sickle Cell [...] Domestic Partner Domestic Partner Phone Father Name Judicial Law Clerk Status 05/26/20 22 1 O Positive CLOSED Fetus Data First Name Last Name Admitted to NICU Weight (g) Sex Living Outcome Pediatric Complications Fetus ID Race Codes Race Delivery Type Gamayl Jackie enriquez false 3183.67 20218 F true Full Term 75333 2106-3 White Vaginal Problems Problem Notes breast feeding boy cir ? epi dural yes cat advised not to change liter box Problem Name Start Date End Date Resolution Snomed Code Not e Depressive disorder 53715290 Anxiety disorder 815758173 Seizure disorder 574060134 Pt states the seizures stopped after removal of Nexplanon History of alcoholism 62658953 1 Past history of premature delivery 06/29/2022 710303110 Induce d secondary to oligohydramnios? Tobacco user 341826457 Group B Streptococcus carrier 11/01/2022 2725414463225 Rubella non-immune 418175095 O ffer MMR after delivery Marijuana user 084173476 Encou rage cessation Mayco Calculation Initial Mayco Date Initial Exam Date Initial Exam Provider Initial Ultrasound Date Last Menstrual Period Date Ultra Sound Weeks Gestation 10/31/2022 05/26/2022 [email or web address] [id number] 06/15/2022 01/24/2022 19 Eighteen To Twenty Week Mayco Update Ultra Sound Date Fundal Height At Umbil Quickening Date Ultra Sound Latest Weeks Gestation Final Mayco Confirmed By Final Mayco Confirmed Date Final Mayco Date Ultra Sound Latest Days Gestation 0 [email or web address] [id number] 06/17/2022 11/10/19 23 0 Pre-ashely Flowsheet Flowsheet Date 06/09/2022 Borges Score Blood Edema Fundus Height Fundus Units Glucose Ketones Leukocytes Nitrite Labor Signs Protein Cervic Dilation Cervic Effacement Cervic Station neg none none negative none neg 0cm Type Weight in lbs Pre/Post Dialysis Refused With clothes 135.34847755845 BP Diastolic BP Location Tested BP Systolic [...] in lbs Pre/Post Dialysis Refused With clothes 137.025518176279 BP Diastolic BP Location Tested BP Systolic [...] in lbs Pre/Post Dialysis Refused With clothes 142.560187372797 BP Diastolic BP Location Tested BP Systolic [...] Weight in lbs Pre/Post Dialysis Refused Weight 144.406322222873 BP Diastolic BP Location Tested BP Systolic [...] in lbs Pre/Post Dialysis Refused With clothes 145.205232500594 BP Diastolic BP Location Tested BP Systolic [...] in lbs Pre/Post Dialysis Refused With clothes 149.643488941276 BP Diastolic BP Location Tested BP Systolic [...] in lbs Pre/Post Dialysis Refused With clothes 149.707146391189 BP Diastolic BP Location Tested BP Systolic [...] in lbs Pre/Post Dialysis Refused With clothes 151.247816338070 BP Diastolic BP Location Tested BP Systolic [...] in lbs Pre/Post Dialysis Refused With clothes 150.843958467579 BP Diastolic BP Location Tested BP Systolic [...] Weight in lbs Pre/Post Dialysis Refused Weight 137.865957505700 BP Diastolic BP Location Tested BP Systolic [...] At Estimated Date of Delivery false Thalassemia (Azerbaijani, Vietnamese, Mediterranean, Or Background): MCV < 80 false Neural Tube Defect (Meningom yelocele, Spina Bifida, Or Anencephaly) false Congenital Heart Defect false Down Syndrome false Tk-Sachs (eg, Episcopal, Cajun, Armenian-Calhoun) t rue Armenian-Calhoun FOB Dinah Disease false Sickle Cell Disease Or Trait () false Hemophilia Or Other Blood Disorders false Muscular Dystrophy false Cystic Fibrosis false Ravalli's Chorea false Mental Retardation/Autism false If Yes, [...] Domestic Partner Domestic Partner Phone Father Name Judicial Law Clerk Status 05/26/20 22 1 CLOSED Fetus Data First Name Last Name Admitted to NICU Weight (g) Sex Living Outcome Pediatric Complications Fetus ID Race Codes Race Delivery Type 1955.88 8704 Full Term [id number] Vaginal Mayco Calculation Initial Mayco Date Initial [...]
--- OUTSIDE RECORDS SUMMARY | 2025-01-14 12:05 | XMS_ITS | Clinical Summary ---
Author Organization [facility] Address [address] [place] [address] Care Team Providers Care Worksite Wellness Practitioner Name Role Phone None, Provider MD Primary Care Provider Unavaila ble Allergies No known active allergies Medications No known medications Active Problems Problem Noted Date Diagnosed Date Alcohol withdrawal ([facility]) 12/14/2018 Social History Tobacco Use Types Packs/Day Years Used Date Smoking Tobacco: Every Day Cigarettes Smokeless Tobacco: Never Tobacco Cessation:Ready to Q uit: No; Counseling Given: No Comments:per [facility] records Alcohol Use Standard Drinks/Week Comments Yes 0 (1 standard drink = 0.6 oz pure alcohol) patient records from [facility] states she drinks 1/2 gallon daily AUDIT-C Answer Date Recorded Frequency of Alcohol Consumption Never 12/14/2018 Average Number of Drinks Not on file 019 Frequency of Binge Drinking Not on file 11/26 Comments No Sex and Gender Information Value Date Recorded Sex Assigned at Female 12/14/2018 3:42 PM CDT Legal Sex Female 6:00 PM MANUFACTURERS SERVICE REPRESENTATIVE Gender Identity Female 12/14/2018 3:42 PM CDT [...] 1:32 PM 12/17/2018 10:31 PM Care Teams Worksite Wellness Practitioner Relationship Specialty Start Date End Date None, Provider, PCP - General 12/17/18
--- OUTSIDE RECORDS SUMMARY | 2025-01-14 12:05 | XMS_ITS | Clinical Summary ---
Author Organization [facility] Address [address] [place] [address] Care Team Providers Care Payroll Machine Operator Name Role Phone Mauricio Cantu MD Unavailable + [phone] No, Physician Primary Care Provider [phone] Allergies Active Allergy Reactions Criticality Noted Date [...] - 11/14/2024 11:59 PM CDT Hospital Encounter [facility] [address] [place] [address] state, incidental Discharge Disposition: Discharge to home [...] oz pur e alcohol) Daily drinker of [employer] Social Connection and Isolat ion Panel [NHANES] Answer Date Recorded In a typical week, how many times do you talk on the phone with family, friends, or neighbors? More than three times a week 11/05/2022 How often do you get togethe r with friends or relatives? More than three times a week 11/05/2022 How often do you attend chur ch or evangelical services? Never 11/05/2022 Do you belong to any clubs o r organizations such as evangelical groups, unions, fraternal or athletic groups, or [...] staff should administer the PHQ-9) 0 11/04/2022 [facility] [place] of Occupat ional Health - Occupational Stress [...] place to sleep or slept in a [place] facility (including now)? No 11/05/2022 Personal Safety Answer Date Recorded Getting School Help Needed Denies 09/03 Comments No Sex and Gender Information Value Date Recorded Sex Assigned at Not on file Legal Sex Female 12:12 PM EMPLOYEE COUNSELOR Gender Identity Not on file Sexual Orientation [...] CDT Oxygen Saturation 99% 11/05/2022 7:56 AM EMPLOYEE COUNSELOR Inhaled Oxygen Concentration - - Weight 51.7 [...] Morgan Kimble M.D. CH: JAD Report ID: [id number] Reading Location: [place] [address] Procedure Note Morgan Kimble Jr., MD - [...] Morgan Kimble M.D. CH: JAD Report ID: [id number] Reading Location: [place] [address] us Mauricio Cantu MD IMG OB US PROCEDURES F inal Result from Last 3 Months Insurance Advance Directives For more information, please contact: [phone] * Full Code (Latest Code Status on File) Date Activated Date Inactivated Comments 11/05/2022 9:25 AM 11/07/2022 8:22 PM * Full Code Date Activated Date Inactivated Comments 11/05/2022 2:04 AM 11/05/2022 9:25 AM Full CPR in case of cardiopulmonary arrest Care Teams Payroll Machine Operator Relationship Specialty Start Date End Date No, Physician PCP - General 10/11/24 Mauricio Cantu MD [address] [place] [address] Construction Economist Obstetrics and Gynecology 11/07/22
--- OUTSIDE RECORDS SUMMARY | 2025-01-14 12:05 | XMS_ITS | Clinical Summary ---
Author Organization [facility] Address [address] [place] [address] Phone Care Team Providers Care Principal Consultant Name Role Phone Provider, None Primary Care Provider Unavailabl e Allergies Active Allergy Reactions Criticality Noted Date Comments Lanolin Hives 01/01/2025 Latex Rash Medium 01/31/2024 Medications chlorhexidine (PERIDEX) 0.12 % SolutionIndicat ions:Dental infection 15 mL by Swish & Spit route 2 times daily. 473 mL 5 Active Additional Information Patient not taking.Reported on 01/10/2025 chlorhexidine (PERIDEX) 0.12 % SolutionIndicat ions:Dental infection 15 mL by Swish & Spit route 2 times daily. 473 mL 5 Active Amoxicillin 500 MG TabletIndicatio ns:Dental infection Take 1 Tablet by mouth 2 times daily for 7 days. 14 Tablet 5 01/18/20 25 Active Amoxicillin 500 MG Tablet Take 1 Tablet by mouth 2 times daily for 10 days. 20 Tablet 5 01/06/20 25 Active Problems Estimated Date of Delivery Comme nts Yes 05/11/2025 No known active problems Encounters Date Type Department Care Team Description 01/10/2025 8:45 AM CDT Urgent Care Visit [facility] [place] [address] [place] [address] Yareli Peace, DIRECTOR EXPERIMENTAL MEDICINE, INTEGRATION ANALYST Dental infection (Primary Dx) Discharge Disposition: Discharged to home or Selfcare 01/10/2025 Travel 01/01/2025 8:57 AM CDT - 01/01/2025 10:52 AM CDT Emergency [facility] Emergency [address] [place] [address] Maritza Andres APRN, INTEGRATION ANALYST Flank pain Discharge Disposition: Discharged to home or Selfcare 01/01/2025 Travel 12/26/2024 6:58 AM CDT - 12/26/2024 7:32 AM CDT Emergency [facility] Emergency [address] [place] [address] Buddy Sadler, Dental infection Discharge Disposition: Discharged to home [...] Sign Reading Time Taken Comments Blood Pressure 116/74 01/10/2025 8:45 AM CDT Pulse 98 01/10/2025 8:45 AM CDT Temperature 36.6 C (97.9 F) 01/10/2025 8:45 AM CDT Respiratory Rate 18 01/10/2025 8:45 AM CDT Oxygen Saturation 98% 01/10/2025 8:45 AM CDT Inhaled Oxygen Concentration - - [...] Screening (CCS) 2023 HPV/Cotest 2023 SARS-COV-2 Immunization (1 - season) 2024 Influenza Immunization (Seas on [...] 1.003 - 1.030 01/01/2025 9:49 AM CDT [facility] URINE PH 7.0 5.0 - 9.0 01/01/2025 9:49 AM CDT [facility] WBC ESTERASE Negative Negative 01/01/2025 9:49 AM CDT [facility] NITRITE Negative Negative 01/01/2025 9:49 AM CDT [facility] PROTEIN, RANDOM URINE 15 mg/dL(A) Negative 01/01/2025 9:49 AM CDT [facility] URINE GLUCOSE, QUAL Negative Negative 01/01/2025 9:49 AM CDT [facility] URINE KETONES Negative Negative 01/01/2025 9:49 AM CDT [facility] UROBILINOGEN Normal Normal mg/dL 01/01/2025 9:49 AM CDT [facility] URINE BLOOD Negative Negative sal/ul 01/01/2025 9:49 AM CDT [facility] URINALYSIS COLOR Yellow 01/02/20 9:49 AM CDT [facility] URINALYSIS CLARITY Clear 01/01/2025 9:49 AM CDT [facility] Urine URINE SPECIMEN / Unknown Non-Phlebotomy Collection / Unknown 01/01/2025 9:41 AM CDT 01/01/2025 9:44 AM CDT us Maritza Andres APRN, INTEGRATION ANALYST URINE ORDERABLES F inal Result [facility] [address] [place] [address] from Last 3 Months Insurance MEDICAID [employer] Care Teams Principal Consultant Relationship Specialty Start Date End Date Provider, None [place] PCP - General 07/14/22
--- OUTSIDE RECORDS SUMMARY | 2025-01-14 12:05 | XMS_ITS | Referral Summary ---
Author Organization [facility] Address [address] [place] [address] Care Team Providers Care Instructional Technology Coordinator Name Role Phone Mauricio Cantu MD Unavailable [phone] No, Physician Primary Care Provider Encounters Date Type Department Care Team Description 11/14/2024 9:28 AM CDT - 11/14/2024 11:59 PM CDT Hospital Encounter [facility] [address] [place] [address] state, incidental Discharge Disposition: Discharge to home [...] often do you attend chur ch or yazidi services? Never 11/05/2022 Do you belong to any clubs o r organizations such as islam groups, unions, fraternal or athletic groups, or [...] staff should administer the PHQ-9) 0 11/04/2022 [facility] [place] of Occupat ional Health - Occupational Stress [...] on file Legal Sex Female 12:12 PM CHANGE OVER Gender Identity Not on file Sexual Orientation Not on file Last Filed Vital Signs Vital Sign Reading Time Taken Comments Blood Pressure 108/76 01/31/2024 10:53 AM CDT Pulse 81 01/31/2024 10:53 AM CDT Temperature 35.7 C (96.2 F) 11/07/2022 8:20 AM CDT Respiratory Rate 18 01/31/2024 10:53 AM CDT Oxygen Saturation 99% 11/05/2022 7:56 AM CHANGE OVER Inhaled Oxygen Concentration - - Weight 51.7 [...] 7:52 AM - Electronically signed by Morgan Kimbel M.D. CH: JAD Report ID: [id number] Reading Location: [id number] Procedure Note Morgan Kimble Jr., MD - [...] Morgan Kimble M.D. CH: JAD Report ID: [id number] Reading Location: [place] [address] us Mauricio Cantu MD IMG OB US PROCEDURES F inal Result from Last 3 Months Insurance Advance Directives For more information, please contact: [phone] * Full Code (Latest Code Status on File) Date Activated Date Inactivated Comments 11/05/2022 9:25 AM 11/07/2022 8:22 PM * Full Code Date Activated Date Inactivated Comments 11/05/2022 2:04 AM 11/05/2022 9:25 AM Full CPR in case of cardiopulmonary arrest Care Teams Instructional Technology Coordinator Relationship Specialty Start Date End Date No, Physician PCP - General 10/11/24 Mauricio Cantu MD [address] [place] [address] [address] [address] Gyroscope Repairer Obstetrics and Gynecology 11/07/22
== END 2025-01-14 12:01 | disposition home or self-care (01) ==
LOC: CHSIMG 12:03
PROVIDERS: PCP Nurse Practitioner Family; Visit Provider Obstetrics & Gynecology
DX: Z34.92 Encounter for supervision of normal pregnancy, unspecified, second trimester (principal)
CPT/HCPCS: 76816